=== PATIENT | male | born 1950 | race Caucasian/White ===

== ENCOUNTER 2020-09-07 12:25 | Outpatient (CLI) | payer MEDICARE, SELFPAY ==
[2020-09-07 20:32] LABS: SARS-CoV-2 RNA PCR Negative
== END 2020-09-07 12:26 | disposition home or self-care (01) ==
LOC: ANHCOVIDDT 12:28
PROVIDERS: PCP Internal Medicine; Visit Provider Internal Medicine
DX: J02.9 Acute pharyngitis, unspecified (principal); Z20.822 Contact with and (suspected) exposure to COVID-19
CPT/HCPCS: C9803; U0003; U0005

== ENCOUNTER 2020-09-08 11:18 | Emergency (ER) | payer MEDICARE, SELFPAY ==
--- NOTE | 2020-09-08 11:28 | ED.URI ---
HPI - URI/Sore Throat General Chief Complaint: Upper Respiratory Infection Stated Complaint: Sore throat Source: patient and RN notes reviewed Mode of arrival: ambulatory History of Present Illness HPI Narrative: This is a 70-year-old white male who presented to urgent care today with a complaint of sore throat and pain while swallowing that developed approximately 4 days ago. Patient does have a history of taking prednisone. He did note that yesterday he took a old prescription of amoxicillin. Patient also notes that he has a burning sensation in his throat. Patient will be treated for pharyngitis , ORAL candidiasis. The patient denies SOB, CP, palpitation, extremity numbness, lightheadedness, dizziness, constipation, diarrhea, chills, or fever. Related Data Home Medications Medication Instructions Recorded Confirmed aspirin 81 mg tablet,delayed 81 mg PO DAILY 08/07/19 09/08/20 release carvedilol 6.25 mg tablet 6.25 mg PO Q12H 08/07/19 09/08/20 ezetimibe 10 mg-simvastatin 40 mg 1 tablet PO DAILY 08/07/19 09/08/20 tablet ferrous sulfate 325 mg (65 mg 325 mg PO DAILY 08/07/19 09/08/20 iron) tablet losartan 25 mg tablet 25 mg PO DAILY 08/07/19 09/08/20 methotrexate sodium 2.5 mg tablet 2.5 mg PO WEEKLY 08/07/19 09/08/20 multivitamin 1 tablet PO DAILY 08/07/19 09/08/20 pantoprazole 20 mg tablet,delayed 20 mg PO QAM 08/07/19 09/08/20 release ticagrelor 90 mg tablet 90 mg PO Q12H 08/07/19 09/08/20 tofacitinib 11 mg tablet,extended 11 mg PO DAILY 08/07/19 09/08/20 release 24 hr folic acid 1 mg tablet 1 mg PO DAILY 08/10/19 09/08/20 prednisone 1 mg PO DAILY 09/08/20 09/08/20 rosuvastatin 40 mg PO DAILY 09/08/20 09/08/20 Allergies Allergy/AdvReac Type Severity Reaction Status Date / Time lisinopril Allergy Intermediate Swelling Verified 09/08/20 11:25 of Lip/Tongue/Throat gramicidin D Allergy Mild Rash Verified 09/08/20 11:24 hydrocortisone Allergy Mild Rash Verified 09/08/20 11:25 [From [facility] ([id number])] polymyxin B Allergy Mild Rash Verified 09/08/20 11:24 neomycin AdvReac Mild Rash Verified 09/08/20 11:24 Review of Systems Review of Systems: All systems reviewed & are unremarkable except as noted in HPI and below (10 point system review) [facility] Surgical History Surgical History H/O oral surgery Family History Family History Sibling Patient's brother is in good health Carcinoma of colon Father Family history of malignant neoplasm Patient's father is , Onset Age: 86 Mother Family history of dementia Social History Social History Smoking packs per day: 1 Smoking cigarettes per day: 20.0 Years smoked: 40 Smoking pack-years: 40.00 Smoking status: Former smoker Second hand tobacco smoke exposure: No Smoking end date: 08/05/11 Alcohol intake: current Exam Narrative: Exam Narrative: GENERAL: This is a well-nourished, well-developed patient, in no apparent distress. HEAD: normocephalic, atraumatic. EYES: PERRL. Sclera clear/white. Vision is grossly intact. EARS: External ears normal, auditory canals clear and without drainage, TMs normal without perforation. Hearing grossly intact. NOSE: External nose normal with no obvious nasal discharge, nares without redness, no rhinorrhea. THROAT: WHITE THICK COTTAGE CHEESE PATCHES IN posterior and roof of the, erythema and edematous NECK: Neck supple, non-tender without lymphadenopathy, masses or thyromegaly. CARDIOVASCULAR: Regular rate and rhythm without murmurs, gallops, or rubs. RESPIRATORY: Clear to auscultation. Breath sounds equal bilaterally. No wheezes, rales, or rhonchi. GASTROINTESTINAL: Abdomen soft, non-tender, nondistended. Bowel sounds are active. No hepato-splenomegaly, or palpable masses. No guarding. SKIN:
[2020-09-08 11:41] VITALS: BP 121/80; PULSE 67; RESP 16; TEMP 37.2; O2SAT 100
== END 2020-09-08 12:10 | disposition home or self-care (01) ==
PROVIDERS: Emergency Provider Nurse Practitioner; PCP Internal Medicine
DX: J02.8 Acute pharyngitis due to other specified organisms (principal); Z87.891 Personal history of nicotine dependence
CPT/HCPCS: 87081; 87880; 99213; G0463

== ENCOUNTER → 2021-08-08 10:39 | Outpatient (CLI) | payer MEDICARE, SELFPAY ==
[2021-08-08 20:10] LABS: SARS-CoV-2 RNA PCR Negative
== END ==
PROVIDERS: PCP Internal Medicine; Visit Provider Internal Medicine
DX: R05.9 Cough, unspecified (principal); Z20.822 Contact with and (suspected) exposure to COVID-19
CPT/HCPCS: C9803; U0003; U0005

== ENCOUNTER → 2021-08-28 09:39 | Outpatient (CLI) | payer MEDICARE, SELFPAY ==
[2021-08-28 19:02] LABS: SARS-CoV-2 RNA PCR Positive
== END ==
PROVIDERS: PCP Internal Medicine; Visit Provider Internal Medicine
DX: U07.1 COVID-19 (principal); R05.9 Cough, unspecified
CPT/HCPCS: C9803; U0003; U0005

== ENCOUNTER 2021-08-30 08:54 | Outpatient (RCR) | payer MEDICARE, SELFPAY ==
[2021-08-30 12:40] VITALS: BP 110/87; PULSE 66; RESP 18; TEMP 36.6; O2SAT 92
[2021-08-30] MEDS: FAMOTIDINE 20 MG TABLET PO (12:45)
[2021-08-30] MEDS: ACETAMINOPHEN 325 MG TABLET 650 MG PO (12:45)
[2021-08-30] MEDS: diphenhydrAMINE HCl CAP 25 MG CAPSULE PO (12:45)
== END 2021-08-30 17:00 ==
LOC: AMCINF 08:54
PROVIDERS: PCP Internal Medicine; Referring Provider Internal Medicine; Visit Provider Internal Medicine Hematology & Oncology
DX: U07.1 COVID-19 (principal); I25.10 Atherosclerotic heart disease of native coronary artery without angina pectoris
CPT/HCPCS: A9270; M0247; Q0247

== ENCOUNTER 2021-09-23 13:46 | Emergency (ER) | payer MEDICARE, SELFPAY ==
--- NOTE | 2021-09-23 13:55 | ED.URI ---
HPI - URI/Sore Throat General Chief Complaint: Upper Respiratory Infection Stated Complaint: Cough Time Seen by Provider: 09/23/21 13:55 Source: patient and RN notes reviewed History of Present Illness HPI Narrative: Patient is a 71-year-old male who presents the urgent care with complaints of post COVID cough. Patient states he had COVID 5 weeks ago and has had ear congestion since then. Patient states that approximately 1 week ago his cough worsened. Denies any shortness of breath or chest pain. Denies of production of the cough. States that he has not taken anything [id number] for his symptoms. Denies of fever, chills, nausea or vomiting. No other acute complaints. No acute distress noted. Patient read the plan of care. Some parts of this dictation were generated by voice recognition software and may contain typographical and/or grammatical inaccuracies. Related Data Home Medications Medication Instructions Recorded Confirmed aspirin 81 mg tablet,delayed 81 mg PO DAILY 08/07/19 09/23/21 release carvedilol 6.25 mg tablet 6.25 mg PO Q12H 08/07/19 09/23/21 ferrous sulfate 325 mg (65 mg 325 mg PO DAILY 08/07/19 09/23/21 iron) tablet multivitamin 1 tablet PO DAILY 08/07/19 09/23/21 pantoprazole 20 mg tablet,delayed 20 mg PO QAM 08/07/19 09/23/21 release tofacitinib 11 mg tablet,extended 11 mg PO DAILY 08/07/19 09/23/21 release 24 hr folic acid 1 mg tablet 1 mg PO DAILY 08/10/19 09/23/21 calcium carbonate 500 mg-vitamin 1 tablet PO DAILY 10/26/20 09/23/21 D3 10 mcg (400 unit) tablet fexofenadine 180 mg tablet 180 mg PO DAILY 10/26/20 09/23/21 ibuprofen 200 mg-diphenhydramine 1 cap PO QHS PRN 10/26/20 09/23/21 HCl 25 mg capsule irbesartan 75 mg tablet 75 mg PO DAILY 10/26/20 09/23/21 rosuvastatin 40 mg tablet 40 mg PO DAILY 10/26/20 09/23/21 sildenafil 100 mg tablet 100 mg PO DAILY PRN 10/26/20 09/23/21 methotrexate (PF) 25 mg/mL 25 mg SUBCUT DAILY 02/01/21 09/23/21 subcutaneous syringe Allergies Allergy/AdvReac Type Severity Reaction Status Date / Time lisinopril Allergy Intermediate Swelling Verified 09/23/21 13:51 of Lip/Tongue/Throat gramicidin D Allergy Mild Rash Verified 09/23/21 13:51 hydrocortisone Allergy Mild Rash Verified 09/23/21 13:51 [From [facility] ([id number])] polymyxin B Allergy Mild Rash Verified 09/23/21 13:51 neomycin AdvReac Mild Rash Verified 09/23/21 13:51 Review of Systems Review of Systems: CONSTITUTIONAL: Denies fever, chills, or sweats. EYES: Denies visual changes, redness, or discharge. ENT: Denies rhinorrhea, congestion, sore throat. Reports of bilateral earache CARDIOVASCULAR: Denies chest pain, palpitations, or edema. RESPIRATORY: Reports of chronic nonproductive cough without dyspnea GASTROINTESTINAL: Denies abdominal pain, nausea, vomiting, or diarrhea. GENITOURINARY: Denies dysuria or hematuria. SKIN: Denies rash or itching. MUSCULOSKELETAL: Denies back pain, joint pain, or myalgia. NEUROLOGIC: Denies headache, numbness, or weakness. All other systems reviewed are negative, except as documented in HPI. [facility] Surgical History Surgical History H/O oral surgery Family History Family History Sibling Patient's brother is in good health Carcinoma of colon Father Family history of malignant neoplasm Patient's father is , Onset Age: 86 Mother Family history of dementia Social History Social History Smoking packs per day: 1 Smoking cigarettes per day: 20.0 Years smoked: 40 Smoking pack-years: 40.00 Smoking status: Former smoker Second hand tobacco smoke exposure: No Smoking end date: 08/05/11 Alcohol intake: current Comments At the time of my signature, I reviewed and agree with the nursing past medical, surgical, soci
[2021-09-23 14:01] VITALS: BP 107/69; PULSE 64; RESP 18; TEMP 36.5; O2SAT 96
== END 2021-09-23 14:10 | disposition home or self-care (01) ==
PROVIDERS: Emergency Provider Nurse Practitioner Family; PCP Internal Medicine
DX: R05.9 Cough, unspecified (principal); U09.9 Post COVID-19 condition, unspecified; Z87.891 Personal history of nicotine dependence; Z79.82 Long term (current) use of aspirin
CPT/HCPCS: 99213; G0463

== ENCOUNTER 2022-03-22 11:58 | Outpatient (CLI) | payer MEDICARE, SELFPAY ==
--- NOTE | ~2022-03-22 | XR_ITS ---
EXAMINATION: XR lumbar spine min 4V DATE: 03/22/2022 12:25 INDICATION: Low back pain TECHNIQUE: Anteroposterior and lateral in neutral, flexion and extension views of the lumbar spine we re obtained. COMPARISON: 10/20/2018, 09/09/2018 FINDINGS: There are 6 mm of unchanged anterolisthesis of L2 on L3 and 5 mm of unchanged retrolisthesi s of L3 on L4 and L4 on L5. Alignment at L3-4 is reduced to normal flexion. Alignment of the lumbar s pine is anatomic with extension. There is moderate loss of intervertebral disc space height at L4-5 a nd severe loss of intervertebral disc space height throughout the remainder of the lumbar spine. No f racture is identified. Calcified atherosclerosis is noted. IMPRESSION: 1. Severe lumbar spondylosis with laxity in flexion and extension. No fracture. Reviewed, dictated and finalized at location A.
== END 2022-03-22 11:59 | disposition home or self-care (01) ==
PROVIDERS: PCP Internal Medicine; Visit Provider Neurological Surgery
DX: M47.896 Other spondylosis, lumbar region (principal)
CPT/HCPCS: 72110

== ENCOUNTER 2022-07-06 15:15 | Outpatient (CLI) | payer MEDICARE, SELFPAY ==
[2022-07-06 16:08] LABS: Influenza A QL RT-PCR Positive (Negative); Influenza B QL RT-PCR Negative (Negative); SARS-CoV-2 RNA PCR Negative
== END 2022-07-06 15:16 | disposition home or self-care (01) ==
PROVIDERS: PCP Internal Medicine; Visit Provider Internal Medicine
DX: B34.9 Viral infection, unspecified (principal); Z20.822 Contact with and (suspected) exposure to COVID-19
CPT/HCPCS: 87636

== ENCOUNTER 2022-10-24 00:19 | Day surgery (SDC) | payer MEDICARE, SELFPAY ==
[2022-10-10 14:25] VITALS: BMI 24.5
[2022-10-24 08:05] VITALS: BP 129/81; PULSE 68; RESP 16; TEMP 36.1; O2SAT 93; BMI 24.9
[2022-10-24] MEDS: LACTATED RINGERS 1,000 ML 150 ML IV CONT (08:31)
--- NOTE | 2022-10-24 09:08 | WPDANESEPPF ---
Anes - Initial Pre Proc Eval Procedure: Operation Date: 10/24/22 09:30 Proposed Procedures p Screening Colonoscopy - Bran Martínez MD Date/Time: 10/24/22 09:08 Surgeon: Bran Martínez MD Pre Op Diagnosis: neoplasm screening Patient Data Age: 72 Gender: M Height: 1.75 m Weight: 76.5 kg Last Vital Signs Temp 97.0 F L 10/24/22 08:05 Pulse 68 10/24/22 08:05 Resp 16 10/24/22 08:05 BP 129/81 10/24/22 08:05 Pulse Ox 93 10/24/22 08:05 O2 Del Method Room Air 10/24/22 08:05 Allergies Allergy/AdvReac Type Severity Reaction Status Date / Time lisinopril Allergy Intermediate Swelling Verified 10/24/22 08:10 of Lip/Tongue/Throat gramicidin D Allergy Mild Rash Verified 10/24/22 08:10 hydrocortisone Allergy Mild Rash Verified 10/24/22 08:10 [From [facility] ([id number])] polymyxin B Allergy Mild Rash Verified 10/24/22 08:10 neomycin AdvReac Mild Rash Verified 10/24/22 08:10 Home Medications Medication Instructions Recorded Confirmed Type aspirin 81 mg tablet,delayed 81 mg PO DAILY 08/07/19 10/24/22 History release (Adult Low Dose Aspirin) carvedilol 6.25 mg tablet 3.125 mg PO Q12H 08/07/19 10/24/22 History multivitamin (Multiple Vitamins 1 tablet PO DAILY 08/07/19 10/24/22 History tablet) pantoprazole 20 mg tablet,delayed 20 mg PO QAM 08/07/19 10/24/22 History release tofacitinib 11 mg tablet,extended 11 mg PO DAILY 08/07/19 10/24/22 History release 24 hr (Xeljanz XR) calcium carbonate 500 mg-vitamin 1 tablet PO DAILY 10/26/20 10/24/22 History D3 10 mcg (400 unit) tablet irbesartan 75 mg tablet 75 mg PO DAILY 10/26/20 10/24/22 History rosuvastatin 40 mg tablet 40 mg PO DAILY 10/26/20 10/24/22 History sildenafil 100 mg tablet 100 mg PO DAILY PRN pain 10/26/20 10/24/22 History gabapentin 300 mg capsule 300 mg PO QPM #90 caps 07/02/22 10/24/22 Rx citalopram 20 mg tablet 20 mg PO DAILY #90 tabs 09/03/22 10/24/22 Rx Benadryl 25 mg PO DAILY 10/10/22 10/24/22 History clopidogrel 75 mg tablet 75 mg PO DAILY 10/10/22 10/24/22 History leflunomide 20 mg tablet 20 mg PO DAILY 10/10/22 10/24/22 History Patient hx anesthesia problems: none Family hx anesthesia problems: none Results Review: All pre-operative results and documents have been reviewed as part of the pre-operative evaluation. [facility] Surgical History Surgical History H/O oral surgery Family History Family History Sibling Patient's brother is in good health Carcinoma of colon Father Family history of malignant neoplasm Patient's father is , Onset Age: 86 Mother Family history of dementia Social History Social History (Updated 08/07/22 @ 16:27 by Rich Leon MA) Smoking packs per day: 1.5 Smoking cigarettes per day: 30.0 Years smoked: 40 Smoking pack-years: 60.00 Smoking status: Former smoker Tobacco type: cigarettes Second hand tobacco smoke exposure: No Smoking end date: 08/05/11 Alcohol intake: never Substance use: never Substance use type: does not use Currently Unemployed: Decline to Answer Education: High School Diploma/GED Difficulty w/ Childcare or Family Care: Decline to Answer Living arrangements: with family Spiritual care concerns: No Anes - Eval Final PreProcedure Day of Procedure 10/24/22 09:08 Patient weight: normal Heart: regular rate and rhythm Lungs: clear to auscultation Airway: Mallampati scale class II Neurological: alert and oriented Last oral intake: >/= 8 hours ASA classification: III Emergent: no Anesthetic plan: proceed Anesthesia type and monitoring: general GIVS and standard monitoring Results Review: All pre-operative results and documents have been reviewed as part of the pre-operative evaluation. Informed Consent: The patient's anesthetic plan a
--- NOTE | 2022-10-24 09:23 | PM.HPGS ---
History of Present Illness History of Present Illness Consent: Risks, benefits, and alternatives have been discussed and questions answered. Patient agrees to proceed with procedure. Chief complaint: neoplasm screening Narrative: Viktor Toussaint is a 72 year old male with last colonoscopy 5 years ago, sister had colon cancer Review of Systems Constitutional: Constitutional: Denies headache(s) and Denies weakness Eyes: Eyes: Denies blurry vision ENT: Reports Normal hearing present, Denies headache(s) and Denies neck pain Cardiovascular: Cardiovascular: Denies chest pain and Denies dyspnea Respiratory: Respiratory: Denies dyspnea Gastrointestinal: Gastrointestinal: Reports no additional gastrointestinal complaints Genitourinary: Genitourinary: Denies dysuria Musculoskeletal: Musculoskeletal: Denies neck pain Integumentary/Breasts: Skin/Breast: Denies dry skin Neurologic: Reports Normal hearing present, Denies headache(s) and Denies weakness Psychiatric: Psychiatric: Denies anxiety Endocrine: Endocrine: Denies change in body appearance Hematologic/Lymphatic: Hematologic/Lymphatic: Denies easy bleeding Allergic/Immunologic: Allergic/Immunologic: Denies urticaria PMFSH Past Medical History Medical History (Updated 10/24/22 @ 09:24 by Bran Martínez MD) Family history of colon cancer Surgical History Surgical History H/O oral surgery Family History Family History Sibling Patient's brother is in good health Carcinoma of colon Father Family history of malignant neoplasm Patient's father is , Onset Age: 86 Mother Family history of dementia Social History Social History (Updated 08/07/22 @ 16:27 by Rich Leon MA) Smoking packs per day: 1.5 Smoking cigarettes per day: 30.0 Years smoked: 40 Smoking pack-years: 60.00 Smoking status: Former smoker Tobacco type: cigarettes Second hand tobacco smoke exposure: No Smoking end date: 08/05/11 Alcohol intake: never Substance use: never Substance use type: does not use Currently Unemployed: Decline to Answer Education: High School Diploma/GED Difficulty w/ Childcare or Family Care: Decline to Answer Living arrangements: with family Spiritual care concerns: No Meds Home Medications and Allergies Home Medications Medication Instructions Recorded Confirmed Type aspirin 81 mg tablet,delayed 81 mg PO DAILY 08/07/19 10/24/22 History release (Adult Low Dose Aspirin) carvedilol 6.25 mg tablet 3.125 mg PO Q12H 08/07/19 10/24/22 History multivitamin (Multiple Vitamins 1 tablet PO DAILY 08/07/19 10/24/22 History tablet) pantoprazole 20 mg tablet,delayed 20 mg PO QAM 08/07/19 10/24/22 History release tofacitinib 11 mg tablet,extended 11 mg PO DAILY 08/07/19 10/24/22 History release 24 hr (Xeljanz XR) calcium carbonate 500 mg-vitamin 1 tablet PO DAILY 10/26/20 10/24/22 History D3 10 mcg (400 unit) tablet irbesartan 75 mg tablet 75 mg PO DAILY 10/26/20 10/24/22 History rosuvastatin 40 mg tablet 40 mg PO DAILY 10/26/20 10/24/22 History sildenafil 100 mg tablet 100 mg PO DAILY PRN pain 10/26/20 10/24/22 History gabapentin 300 mg capsule 300 mg PO QPM #90 caps 07/02/22 10/24/22 Rx citalopram 20 mg tablet 20 mg PO DAILY #90 tabs 09/03/22 10/24/22 Rx Benadryl 25 mg PO DAILY 10/10/22 10/24/22 History clopidogrel 75 mg tablet 75 mg PO DAILY 10/10/22 10/24/22 History leflunomide 20 mg tablet 20 mg PO DAILY 10/10/22 10/24/22 History Allergies Allergy/AdvReac Type Severity Reaction Status Date / Time lisinopril Allergy Intermediate Swelling Verified 10/24/22 08:10 of Lip/Tongue/Throat gramicidin D Allergy Mild Rash Verified 10/24/22 08:10 hydrocortisone Allergy Mild Rash Verified 10/24/22 08:10 [From [facility] ([id number])] polymyxin B A
[2022-10-24 09:48] VITALS: BP 97/64; PULSE 61; RESP 17; O2SAT 97
[2022-10-24 09:58] VITALS: BP 99/61; PULSE 60; RESP 18; O2SAT 97
[2022-10-24 10:08] VITALS: BP 119/80; PULSE 60; RESP 22; O2SAT 99
== END 2022-10-24 10:15 | disposition home or self-care (01) ==
PROVIDERS: PCP Internal Medicine; Visit Provider Internal Medicine Gastroenterology
PROC: 0DJD8ZZ Inspection of Lower Intestinal Tract, Via Natural or Artificial Opening Endoscopic (ICD-10-PCS; CPT 45378; principal; 2022-10-24 09:30)
DX: Z12.11 Encounter for screening for malignant neoplasm of colon (principal); K64.8 Other hemorrhoids; Z80.0 Family history of malignant neoplasm of digestive organs; Z79.82 Long term (current) use of aspirin; Z79.02 Long term (current) use of antithrombotics/antiplatelets; Z87.891 Personal history of nicotine dependence
CPT/HCPCS: G0105; J2704; J7120

== ENCOUNTER 2022-12-05 08:11 | Outpatient (CLI) | payer MEDICARE, SELFPAY ==
--- NOTE | ~2022-12-05 | US_ITS ---
EXAMINATION: US art doppler w press LE DATE: 12/05/2022 09:26 INDICATION: Peripheral vascular disease. TECHNIQUE: Segmental pressures and plethysmographic and Doppler waveforms of the brachial and lower e xtremity arteries were obtained. COMPARISON: None. FINDINGS: Right and left brachial artery pressures of 108 mm Hg and 99 mm Hg, respectively, are concordant (nor mal difference <= 30 mmHg). The right high-thigh pressure index is 1.22 (normal > 1.2). The right ankle-brachial index (KYLIE) is 1 .26 (normal >= 0.9-1.0). The right great toe-brachial index (TBI) is 0.69 (normal >= 0.65). Arterial Doppler waveforms are biphasic from common femoral artery to the ankle. The left high-thigh pressure index is 1.23. The left KYLIE is 1.31. The left TBI is 0.49. Arterial Dopp ler waveforms are triphasic in common femoral artery, biphasic from superficial femoral artery to pos terior tibial artery, and triphasic in dorsalis pedis. IMPRESSION: 1. Mildly decreased left TBI and normal left KYLIE, consistent with left-sided arterial occlusive disea se. Note that KYLIE may be overestimated if arteries are calcified. 2. No significant right-sided arterial occlusive disease. Reviewed, dictated and finalized at location A. IMPRESSION: 1. Mildly decreased left TBI and normal left KYLIE, consistent with left-sided ar terial occlusive disease. Note that KYLIE may be overestimated if arteries are ca lcified. 2. No significant right-sided arterial occlusive disease.
== END 2022-12-05 08:12 | disposition home or self-care (01) ==
PROVIDERS: PCP Internal Medicine; Visit Provider Podiatrist Foot & Ankle Surgery
DX: I73.9 Peripheral vascular disease, unspecified (principal); Z01.818 Encounter for other preprocedural examination
CPT/HCPCS: 93923

== ENCOUNTER 2023-03-15 14:23 | Outpatient (CLI) | payer MEDICARE, SELFPAY ==
--- NOTE | ~2023-03-15 | MR_ITS ---
EXAMINATION: MR lumbar spine wo con DATE: 03/15/2023 15:23 INDICATION: Other chronic pain. Low back pain with intermittent bilateral sciatica. TECHNIQUE: Magnetic resonance imaging (MRI) of the lumbar spine was performed without intravenous con trast. Sequences included sagittal T2-weighted FSE, sagittal T2-weighted FS FSE, sagittal T1-weighted FSE, and axial T2-weighted FSE. COMPARISON: Lumbar spine MRI 10/20/2018 FINDINGS: There is 14 degrees dextroscoliosis of lumbar spine. There is 19 degrees levoscoliosis of t horacolumbar spine. There is 4 mm anterolisthesis of L1 on L2, 3 mm anterolisthesis of L2 on L3, 4 mm retrolisthesis of L3 on L4, and 6 mm retrolisthesis of L4 on L5. Vertebral body heights are normal. There is moderately decreased disc height at all T12-L1, severely decreased disc height at L1-L2, mod erately decreased disc height at L2-L3, severely decreased disc height at L3-L4, moderately decreased disc height at L4-L5, and severely decreased disc height at L5-S1. The distal spinal cord signal int ensity is normal. The conus medullaris is at L1. The following disc levels are specifically discussed : L1-L2: The disc is bulging and has an annular fissure. There is severe bilateral facet joint osteoart hritis. There is mild bilateral neural foraminal stenosis. There is mild central canal stenosis. L2-L3: The disc is bulging and has an annular fissure. There is severe bilateral facet joint osteoart hritis. There is mild bilateral neural foraminal stenosis. There is an epidural cyst anteriorly. Ther e is severe central canal stenosis. L3-L4: The disc is bulging and has an annular fissure. There is severe bilateral facet joint osteoart hritis. There is moderate bilateral neural foraminal stenosis. There is an epidural cyst posteriorly. There is severe central canal stenosis. L4-L5: The disc is bulging and has an annular fissure. There is severe right and moderate left facet joint osteoarthritis. There is moderate bilateral neural foraminal stenosis. There is mild central ca nal stenosis. There is severe stenosis of right lateral recess and moderate stenosis of left lateral recess. L5-S1: The disc is bulging and has an annular fissure. There is severe bilateral facet joint osteoart hritis. There is mild bilateral neural foraminal stenosis. There is mild central canal stenosis. IMPRESSION: 1. Severe lumbar spondylosis, worsened from 10/20/2018. 2. Scoliosis. Reviewed, dictated and finalized at location A.
== END 2023-03-15 14:24 | disposition home or self-care (01) ==
PROVIDERS: PCP Internal Medicine; Visit Provider Internal Medicine
DX: M47.896 Other spondylosis, lumbar region (principal); M41.9 Scoliosis, unspecified
CPT/HCPCS: 72148

== ENCOUNTER 2023-04-12 13:41 | Emergency (ER) | payer MEDICARE, SELFPAY ==
[2023-04-12 13:53] VITALS: BP 127/76; PULSE 59; RESP 16; TEMP 36.3; O2SAT 98
--- NOTE | 2023-04-12 13:54 | ED.BACK ---
HPI - Back Pain/Injury General Chief Complaint: Back Pain/Injury Stated Complaint: difficulty sleeping,back issues Time Seen by Provider: 04/12/23 13:54 Source: patient Mode of arrival: ambulatory Limitations: no limitations History of Present Illness HPI Narrative: 72 yo M presents with c/o chronic low back pain. reports hx of several surgeries. has been having increased pain to low back with radiation to L LE. pain causing him to have trouble sleeping. has appt with PCP in 1 wk. has tried ibuprofen and tyelnol with no relief. use to take oxycodone and states hard to get off, does not want any strong pain medications. also does no want prednisone, states weaked bones. Ambulatory with steady gait. No loss of bowel or bladder. denies numbness, tingling or weakness to LEs. all systems reviewed and negative except as noted above. Related Data Home Medications Medication Instructions Recorded Confirmed aspirin 81 mg tablet,delayed 81 mg PO DAILY 08/07/19 04/12/23 release (Adult Low Dose Aspirin) carvedilol 6.25 mg tablet 3.125 mg PO Q12H 08/07/19 04/12/23 multivitamin (Multiple Vitamins 1 tablet PO DAILY 08/07/19 04/12/23 tablet) pantoprazole 20 mg tablet,delayed 20 mg PO QAM 08/07/19 04/12/23 release tofacitinib 11 mg tablet,extended 11 mg PO DAILY 08/07/19 04/12/23 release 24 hr (Xeljanz XR) calcium carbonate 500 mg-vitamin 1 tablet PO DAILY 10/26/20 04/12/23 D3 10 mcg (400 unit) tablet irbesartan 75 mg tablet 75 mg PO DAILY 10/26/20 04/12/23 rosuvastatin 40 mg tablet 40 mg PO DAILY 10/26/20 04/12/23 sildenafil 100 mg tablet 100 mg PO DAILY PRN pain 10/26/20 04/12/23 Benadryl 25 mg PO DAILY 10/10/22 04/12/23 clopidogrel 75 mg tablet 75 mg PO DAILY 10/10/22 04/12/23 leflunomide 20 mg tablet 20 mg PO DAILY 10/10/22 04/12/23 cetirizine 10 mg tablet (Zyrtec) 10 mg PO DAILY 04/12/23 04/12/23 cyclosporine 0.05 % eye drops in a See Rx Instructions .Route .COMPLEX 04/12/23 04/12/23 dropperette (Restasis) nitroglycerin 0.4 mg sublingual See Rx Instructions .Route .COMPLEX 04/12/23 04/12/23 tablet vit C 250 mg-vit E 200 unit-zinc See Rx Instructions .Route .COMPLEX 04/12/23 04/12/23 ox 12.5 [id number] capsule (ICaps AREDS2) Allergies Allergy/AdvReac Type Severity Reaction Status Date / Time lisinopril Allergy Intermediate Swelling Verified 04/12/23 13:52 of Lip/Tongue/Throat gramicidin D Allergy Mild Rash Verified 04/12/23 13:52 hydrocortisone Allergy Mild Rash Verified 04/12/23 13:52 [From [facility] ([id number])] polymyxin B Allergy Mild Rash Verified 04/12/23 13:52 neomycin AdvReac Mild Rash Verified 04/12/23 13:52 Review of Systems Review of Systems: CONSTITUTIONAL: Denies fever, chills, or sweats. EYES: Denies visual changes, redness, or discharge. ENT: Denies rhinorrhea, congestion, sore throat, or otalgia. CARDIOVASCULAR: Denies chest pain, palpitations, or edema. RESPIRATORY: Denies cough or dyspnea. GASTROINTESTINAL: Denies abdominal pain, nausea, vomiting, or diarrhea. GENITOURINARY: Denies dysuria or hematuria. SKIN: Denies rash or itching. MUSCULOSKELETAL: Reports back pain with radiation to left lower extremity. Denies joint pain, or myalgia. NEUROLOGIC: Denies headache, numbness, or weakness. PSYCHIATRIC: Denies anxiety or depression. All other systems reviewed are negative, except as documented in HPI. [facility] Past Medical History Medical History Family history of colon cancer Surgical History Surgical History H/O oral surgery Family History Family History Sibling Patient's brother is in good health Carcinoma of colon Father Family history of malignant neoplasm Patient's father is , Onset Age: 86 Mother Family history of dementia Social History Socia
[2023-04-12 13:57] VITALS: BP 127/76; PULSE 59; RESP 16; TEMP 36.3; O2SAT 98
[2023-04-12] MEDS: KETOROLAC 30 MG/ML VIAL (*BKC) IM (14:30)
== END 2023-04-12 14:51 | disposition home or self-care (01) ==
PROVIDERS: Emergency Provider Nurse Practitioner Family; PCP Internal Medicine
DX: M54.42 Lumbago with sciatica, left side (principal); Z87.891 Personal history of nicotine dependence; Z79.82 Long term (current) use of aspirin
CPT/HCPCS: 96372; 99213; G0463; J1885

== ENCOUNTER 2024-06-28 12:57 | Emergency (ER) | payer MEDICARE, SELFPAY ==
[2024-06-28 13:10] VITALS: BP 111/67; PULSE 64; RESP 20; TEMP 36.4; O2SAT 100
--- NOTE | 2024-06-28 13:27 | ED.URI ---
HPI - URI/Sore Throat General Chief Complaint: Upper Respiratory Infection Stated Complaint: Sinus Time Seen by Provider: 06/28/24 13:21 Source: patient and RN notes reviewed Mode of arrival: ambulatory Limitations: no limitations History of Present Illness HPI Narrative: Patient presents today with 11 day history of nasal congestion and productive cough. Denies fever, shortness of breath, chest pain. He has tried Mucinex as well as cold and flu medicine without relief. History of rheumatoid arthritis for which he takes to immunosuppressive medications. He is also on a low-dose prednisone that he takes daily. Related Data Home Medications Medication Instructions Recorded Confirmed aspirin 81 mg tablet,delayed 81 mg PO DAILY 08/07/19 06/28/24 release (Adult Low Dose Aspirin) carvedilol 6.25 mg tablet 3.125 mg PO Q12H 08/07/19 06/28/24 multivitamin (Multiple Vitamins 1 tablet PO DAILY 08/07/19 06/28/24 tablet) pantoprazole 20 mg tablet,delayed 20 mg PO QAM 08/07/19 06/28/24 release tofacitinib 11 mg tablet,extended 11 mg PO DAILY 08/07/19 06/28/24 release 24 hr (Xeljanz XR) calcium 500 mg (as 1 tablet PO DAILY 10/26/20 06/28/24 carbonate)-vitamin D3 10 mcg (400 unit) tablet irbesartan 75 mg tablet 75 mg PO DAILY 10/26/20 01/07/24 rosuvastatin 40 mg tablet 40 mg PO DAILY 10/26/20 06/28/24 sildenafil 100 mg tablet 100 mg PO DAILY PRN pain 10/26/20 06/28/24 Benadryl 25 mg PO DAILY 10/10/22 06/28/24 clopidogrel 75 mg tablet 75 mg PO DAILY 10/10/22 06/28/24 leflunomide 20 mg tablet 20 mg PO DAILY 10/10/22 06/28/24 cetirizine 10 mg tablet (Zyrtec) 10 mg PO DAILY 04/12/23 06/28/24 cyclosporine 0.05 % eye drops in a See Rx Instructions .Route .COMPLEX 04/12/23 06/28/24 dropperette (Restasis) nitroglycerin 0.4 mg sublingual See Rx Instructions .Route .COMPLEX 04/12/23 06/28/24 tablet vit C 250 mg-vit E 200 unit-zinc See Rx Instructions .Route .COMPLEX 04/12/23 06/28/24 ox 12.5 [id number]-oclqaa-zeax capsule (ICaps AREDS2) Allergies Allergy/AdvReac Type Severity Reaction Status Date / Time lisinopril Allergy Intermediate Swelling Verified 06/28/24 12:59 of Lip/Tongue/Throat gramicidin D Allergy Mild Rash Verified 06/28/24 12:59 hydrocortisone Allergy Mild Rash Verified 06/28/24 12:59 [From [facility] ([id number])] polymyxin B Allergy Mild Rash Verified 06/28/24 12:59 neomycin AdvReac Mild Rash Verified 06/28/24 12:59 Review of Systems Review of Systems: CONSTITUTIONAL: Denies body aches, fever, chills, or sweats. EYES: Denies visual changes, redness, or discharge. ENT: Denies rhinorrhea, sore throat, or otalgia.+ congestion CARDIOVASCULAR: Denies chest pain, palpitations, or edema. RESPIRATORY: Denies dyspnea.+ cough GASTROINTESTINAL: Denies abdominal pain, nausea, vomiting, or diarrhea. GENITOURINARY: Denies dysuria or hematuria. SKIN: Denies rash, itching, or wounds. MUSCULOSKELETAL: Denies back pain, joint pain, or myalgia. NEUROLOGIC: Denies headache, numbness, tingling, or weakness. PSYCH: Denies depression or anxiety. [facility] Past Medical History Medical History (Updated 06/28/24 @ 13:31 by Judith Augustin, [place], [place]) Essential (primary) hypertension Family history of colon cancer Surgical History Surgical History H/O oral surgery Family History Family History Sibling Patient's brother is in good health Carcinoma of colon Father Family history of malignant neoplasm Patient's father is , Onset Age: 86 Mother Family history of dementia Social History Social History Smoking packs per day: 1.5 Smoking cigarettes per day: 30.0 Years smoked: 40 Smoking pack-years: 60.00 Smoking status: Former smoker Tobacco type: cigarettes Second hand tobacco smoke exposure: No Smoking end date: 08/05/11 Alcohol intake: never Substance use: never Substance use type: does not use Lack of Transportation: No Lack of Food: Never True Current Housing: I Have Housing Concerned About Future Housing: No Difficulty Paying Gas/Electric Bills: No Difficulty Paying for Meds: No Currently Unemployed: No Education: High School Diploma/GED Difficulty w/ Childcare or Family Care: No Living arrangements: with family Spiritual care concerns: No Comments At time of signature, I have reviewed and agree with nursing past medical, surgical, social and family history unless otherwise noted. Please see nursing chart for further information. There is no relevant family history pertinent to the presenting complaint Exam Narrative: GENERAL: Mildly ill-appearing, well-nourished, and in no acute distress. HEAD: Normocephalic, atraumatic. EYES: EOMI. No redness or drainage. Conjunctivae normal. ENT: Mucous membranes pink and moist. Nares congested. Bilateral nasal turbinates are erythematous and mildly edematous. No rhinorrhea. TMs normal bilaterally. Throat normal. Uvula midline. NECK: Normal AROM. Supple. No lymphadenopathy. CHEST: No respiratory distress. Clear to auscultation. HEART: Regular rate and rhythm. No murmur appreciated. SKIN: Warm, dry, no rash. Capillary refill normal. Normal skin turgor. NEURO: No focal deficits. Alert and oriented x3. Gait steady. PSYCH: Normal affect. No signs of depression or anxiety. Course Course Level of Care: Express Care Visit Vital Signs Vital signs: Vital Signs Temperature 97.5 F L 06/28/24 13:10 Pulse Rate 64 06/28/24 13:10 Respiratory Rate 20 06/28/24 13:10 Blood Pressure 111/67 06/28/24 13:10 Pulse Oximetry 100 06/28/24 13:10 Oxygen Delivery Room Air 06/28/24 13:10 Temperature 97.5 F L 06/28/24 13:10 Pulse Rate 64 06/28/24 13:10 Respiratory Rate 20 06/28/24 13:10 Blood Pressure 111/67 06/28/24 13:10 Pulse Oximetry 100 06/28/24 13:10 Oxygen Delivery Room Air 06/28/24 13:10 Reviewed MDM - URI/Sore Throat MDM Narrative Medical decision making narrative: Patient will be treated with Augmentin for bacterial sinusitis. Recommend continuing mjnn-fjr-xelrqhl medication if needed. Anticipatory guidance given. Differential Diagnosis Differential diagnosis: Likely upper respiratory infection, sinusitis, viral infection and bronchitis Critical Care Time Critical Care Time Critical Care Time: No Discharge Plan Discharge Clinical Impression: Sinusitis Qualifiers: Sinusitis location: unspecified location Chronicity: acute Recurrence: non-recurrent Qualified Code(s): J01.90 - Acute sinusitis, unspecified Patient Disposition: Home, Self-Care Condition: Stable Instructions: Antibiotic Form, Sinusitis (ED) Additional Instructions: Please take the Augmentin as prescribed until gone. You may continue imuv-wqn-phmeozq medication as needed for your symptoms as well. Follow-up with your PCP in 3 days if symptoms are not improving. Prescriptions: New amoxicillin-pot clavulanate 875-125 mg tablet 1 tablet PO Q12H 7 Days Qty: 14 0RF No Action cyclosporine [Restasis] 0.05 % dropperette See Rx Instructions .ROUTE .COMPLEX Rx Instructions: Rx cetirizine [Zyrtec] 10 mg Tablet 10 mg PO DAILY nitroglycerin 0.4 mg tablet, sublingual See Rx Instructions .ROUTE .COMPLEX Rx Instructions: Rx ICaps AREDS2 250 mg-200 unit -12.5 mg-1 mg Capsule See Rx Instructions .ROUTE .COMPLEX Rx Instructions: Rx calcium carbonate-vitamin D3 500 mg(1,250mg) -400 unit tablet 1 tablet PO DAILY irbesartan 75 mg tablet 75 mg PO DAILY rosuvastatin 40 mg tablet 40 mg PO DAILY sildenafil 100 mg tablet 100 mg PO DAILY PRN (Reason: pain) Rx Instructions: administer 30 minutes to 4 hours before activity cyclobenzaprine 10 mg tablet 10 mg PO TID PRN (Reason: muscle spasm) Qty: 30 0RF aspirin [Adult Low Dose Aspirin] 81 mg tablet,delayed release (DR/EC) 81 mg PO DAILY multivitamin [Multiple Vitamins] Tablet 1 tablet PO DAILY pantoprazole 20 mg tablet,delayed release (DR/EC) 20 mg PO QAM Xeljanz XR 11 mg tablet extended release 24 hr 11 mg PO DAILY carvedilol 6.25 mg tablet 3.125 mg PO Q12H gabapentin 300 mg capsule 300 mg PO QPM Qty: 90 3RF clopidogrel 75 mg tablet 75 mg PO DAILY leflunomide 20 mg tablet 20 mg PO DAILY Benadryl 25 mg PO DAILY cefuroxime axetil 250 mg tablet 250 mg PO Q12H Qty: 20 0RF prednisone 5 mg tablet 5 mg PO DIRECTED Qty: 21 0RF Rx Instructions: 6 po today, decreasing dose by one tablet daily until gone(6,5,4,3,2,1) trazodone 50 mg tablet 50 mg PO QHS Qty: 90 1RF dicyclomine 20 mg tablet 20 mg PO DAILY Qty: 90 1RF citalopram 20 mg tablet 20 mg PO DAILY Qty: 90 1RF fluticasone propionate [Flonase Allergy Relief] 50 mcg/actuation spray,suspension 2 spray intranasal DAILY Qty: 16 5RF Rx Instructions: administer into each nostril Follow-up/Referrals: Hong,Sebastian Dewitt DO [Primary Care Provider] - Time of Disposition: 13:32
== END 2024-06-28 13:35 | disposition home or self-care (01) ==
PROVIDERS: Emergency Provider Nurse Practitioner; PCP Internal Medicine
DX: J01.90 Acute sinusitis, unspecified (principal); I10 Essential (primary) hypertension; M06.9 Rheumatoid arthritis, unspecified; Z79.82 Long term (current) use of aspirin; Z87.891 Personal history of nicotine dependence
CPT/HCPCS: 99213; G0463

== ENCOUNTER 2024-09-15 08:42 | Emergency (ER) | payer MEDICARE, SELFPAY ==
--- NOTE | 2024-09-15 08:44 | ED_ITS ---
HPI - URI/Sore Throat General Chief Complaint: Upper Respiratory Infection Stated Complaint: Cough/Bodyaches Time Seen by Provider: 09/15/24 08:43 Source: patient Mode of arrival: ambulatory Limitations: no limitations History of Present Illness HPI Narrative: Viktor is a 74-year-old male patient presenting to the clinic today with complaints of cough, sob on exertion, weakness, and body aches x3 weeks. History of triple bypass with stents. Denies any chest pain. No history of COPD/asthma. Former smoker. Initial o2 saturation 86% on room air and b/p 84/50 manual in the left arm. He did report taking all of his medications this morning. MD elicited complaint: cough and other (shortness of breath,) Related Data Home Medications ?Medication ?Instructions ?Recorded ?Confirmed ?Last Taken ?Type aspirin 81 mg tablet,delayed 81 mg PO DAILY 08/07/19 06/28/24 Unknown History release (Adult Low Dose Aspirin) carvedilol 6.25 mg tablet 3.125 mg PO Q12H 08/07/19 06/28/24 Unknown History multivitamin (Multiple Vitamins 1 tablet PO DAILY 08/07/19 06/28/24 Unknown History tablet) pantoprazole 20 mg tablet,delayed 20 mg PO QAM 08/07/19 06/28/24 Unknown History release tofacitinib 11 mg tablet,extended 11 mg PO DAILY 08/07/19 06/28/24 Unknown History release 24 hr (Xeljanz XR) calcium 500 mg (as 1 tablet PO DAILY 10/26/20 06/28/24 Unknown History carbonate)-vitamin D3 10 mcg (400 unit) tablet irbesartan 75 mg tablet 75 mg PO DAILY 10/26/20 01/07/24 Unknown History rosuvastatin 40 mg tablet 40 mg PO DAILY 10/26/20 06/28/24 Unknown History sildenafil 100 mg tablet 100 mg PO DAILY PRN pain 10/26/20 06/28/24 Unknown History Benadryl 25 mg PO DAILY 10/10/22 06/28/24 Unknown History clopidogrel 75 mg tablet 75 mg PO DAILY 10/10/22 06/28/24 10/20/22 09:00 History leflunomide 20 mg tablet 20 mg PO DAILY 10/10/22 06/28/24 Unknown History cetirizine 10 mg tablet (Zyrtec) 10 mg PO DAILY 04/12/23 06/28/24 Unknown History cyclosporine 0.05 % eye drops in a See Rx Instructions .Route .COMPLEX 04/12/23 06/28/24 Unknown History dropperette (Restasis) nitroglycerin 0.4 mg sublingual See Rx Instructions .Route .COMPLEX 04/12/23 06/28/24 Unknown History tablet vit C 250 mg-vit E 200 unit-zinc See Rx Instructions .Route .COMPLEX 04/12/23 06/28/24 Unknown History ox 12.5 tk-amnmid-hmxcek-zeax capsule (ICaps AREDS2) Allergies Allergy/AdvReac Type Severity Reaction Status Date / Time lisinopril Allergy Intermediate Swelling Verified 09/15/24 08:47 of Lip/Tongue/Throat gramicidin D Allergy Mild Rash Verified 09/15/24 08:47 hydrocortisone (From Allergy Mild Rash Verified 09/15/24 08:47 [facility] ([id number])) polymyxin B Allergy Mild Rash Verified 09/15/24 08:47 neomycin AdvReac Mild Rash Verified 09/15/24 08:47 Review of Systems Review of Systems: Pertinent positives per HPI. Patient denies any fever, chills, rash, headache, visual changes, chest pain, palpitations, nausea, vomiting, diarrhea, constipation, abdominal pain, or any urinary issues. [facility] Past Medical History Medical History Essential (primary) hypertension Family history of colon cancer Surgical History Surgical History H/O oral surgery Family History Family History Sibling Patient's brother is in good health Carcinoma of colon Father Family history of malignant neoplasm Patient's father is , Onset Age: 86 Mother Family history of dementia Social History Social History Smoking packs per day: 1.5 Smoking cigarettes per day: 30.0 Years smoked: 40 Smoking pack-years: 60.00 Smoking status: Former smoker Tobacco type: cigarettes Second hand tobacco smoke exposure: No Smoking end date: 08/05/11 Alcohol intake: never Substance use: never Substance use type: does not use Lack of Transportation: No Lack of Food: Never True Current Housing: I Have Housing Concerned About Future Housing: No Difficulty Paying Gas/Electric Bills: No Difficulty Paying for Meds: No Currently Unemployed: No Education: High School Diploma/GED Difficulty w/ Childcare or Family Care: No Living arrangements: with family Spiritual care concerns: No Comments At the time of my signature, I reviewed and agree with the nursing past medical, surgical, social, and family history. There is no relevant family history pertinent to the patient complaint. Exam Narrative: General: Well-developed, well nourished, ill-appearing Head: Normocephalic, atraumatic Eyes: Pupils equally round and reactive to light bilaterally, EOM intact, sclera and conjunctive clear, no discharge, lids normal Ears: TMs intact and clear, ear canals clear, no drainage, grossly hearing normal. Nose: Nares patent, clear nasal discharge, no inflammation, no sinus tenderness. Mouth: Oral pharynx without lesions or masses, good dentition, MMM. Neck: Supple, trachea midline, no enlargement of anterior or posterior cervical nodes, no thyroid masses or goiter palpable. Cardio: Regular rate and rhythm, s1 and s2 normal, no murmur appreciated. Resp: Coarse and congested lung sounds, no rales, wheezing or rubs Course Course Emergency Course: Portions of this record may have been created with voice recognition software. Level of Care: Express Care Visit Vital Signs Vital signs: Vital Signs Temperature 36.6 C 09/15/24 08:59 Pulse Rate 62 09/15/24 08:59 Respiratory Rate 16 09/15/24 08:59 Blood Pressure 84/56 L 09/15/24 08:59 Pulse Oximetry 86 L 09/15/24 08:59 Oxygen Delivery Room Air 09/15/24 08:59 Temperature 36.6 C 09/15/24 08:59 Pulse Rate 62 09/15/24 08:59 Respiratory Rate 16 09/15/24 08:59 Blood Pressure 84/50 L 09/15/24 09:00 Pulse Oximetry 94 09/15/24 09:00 Oxygen Delivery Nasal Cannula 09/15/24 09:00 Oxygen Flow Rate 3 09/15/24 09:00 Vital signs reviewed Transfer Transfered to: [facility]: [facility] Transfer rationale: SOB on exertion, cough, weakness, hypoxemia, hypotension Accepting physician: Dr. Meier Transfer comments: [facility] EMS MDM - URI/Sore Throat MDM Narrative Medical decision making narrative: Plan: Patient presents to the clinic with complaints of weakness, shortness of breath on exertion, cough, and body aches x3 weeks. Vital signs show low O2 sats at 86% initially on room air and a manual blood pressure 84/50. Electronic b/p was initially 76/55 and 84/56 taken in the left arm. Patient did take his blood pressure medications this morning. O2 placed on patient at 2 liters via n/c bring o2 sats up to 94%. Patient does not appear to be in any respiratory distress while on the stretcher. Recommend transfer to the ED for further evaluation. Patient agrees to transfer to [facility]. Contacted Dr. Meier at [facility] and report was given for continuity of care and she accepts patient. EMS was called for transfer. Differential Diagnosis Differential diagnosis: Likely upper respiratory infection, otitis media, sinusitis, viral infection, bronchitis, influenza, pharyngitis and other Discharge Plan Discharge Clinical Impression: Short of breath on exertion, Acute hypotension, Hypoxemia, Weakness Patient Disposition: Acute Care Hospital Condition: Guarded Prognosis Patient Language: Swedish Prescriptions: No Action cyclosporine [Restasis] 0.05 % dropperette See Rx Instructions .ROUTE .COMPLEX Rx Instructions: Rx cetirizine [Zyrtec] 10 mg Tablet 10 mg PO DAILY nitroglycerin 0.4 mg tablet, sublingual See Rx Instructions .ROUTE .COMPLEX Rx Instructions: Rx ICaps AREDS2 250 mg-200 unit -12.5 mg-1 mg Capsule See Rx Instructions .ROUTE .COMPLEX Rx Instructions: Rx calcium carbonate-vitamin D3 500 mg(1,250mg) -400 unit tablet 1 tablet PO DAILY irbesartan 75 mg tablet 75 mg PO DAILY rosuvastatin 40 mg tablet 40 mg PO DAILY sildenafil 100 mg tablet 100 mg PO DAILY PRN (Reason: pain) Rx Instructions: administer 30 minutes to 4 hours before activity cyclobenzaprine 10 mg tablet 10 mg PO TID PRN (Reason: muscle spasm) Qty: 30 0RF aspirin [Adult Low Dose Aspirin] 81 mg tablet,delayed release (DR/EC) 81 mg PO DAILY multivitamin [Multiple Vitamins] Tablet 1 tablet PO DAILY pantoprazole 20 mg tablet,delayed release (DR/EC) 20 mg PO QAM Xeljanz XR 11 mg tablet extended release 24 hr 11 mg PO DAILY carvedilol 6.25 mg tablet 3.125 mg PO Q12H gabapentin 300 mg capsule 300 mg PO QPM Qty: 90 3RF clopidogrel 75 mg tablet 75 mg PO DAILY leflunomide 20 mg tablet 20 mg PO DAILY Benadryl 25 mg PO DAILY cefuroxime axetil 250 mg tablet 250 mg PO Q12H Qty: 20 0RF prednisone 5 mg tablet 5 mg PO DIRECTED Qty: 21 0RF Rx Instructions: 6 po today, decreasing dose by one tablet daily until gone(6,5,4,3,2,1) trazodone 50 mg tablet 50 mg PO QHS Qty: 90 1RF dicyclomine 20 mg tablet 20 mg PO DAILY Qty: 90 1RF citalopram 20 mg tablet 20 mg PO DAILY Qty: 90 1RF fluticasone propionate [Flonase Allergy Relief] 50 mcg/actuation spray,suspension 2 spray intranasal DAILY Qty: 16 5RF Rx Instructions: administer into each nostril Follow-up/Referrals: Mayur Urena DO [Primary Care Provider] - Time of Disposition: 09:15 Quality NIHSS Nursing Documentation ED NIHSS nursing documentation: reviewed/agree
[2024-09-15 08:59] VITALS: BP 84/56; PULSE 62; RESP 16; TEMP 36.6; O2SAT 86
[2024-09-15 09:00] VITALS: BP 84/50; O2SAT 94
== END 2024-09-15 09:10 | disposition short-term general hospital (02) ==
PROVIDERS: Emergency Provider Nurse Practitioner Family; PCP Internal Medicine
DX: R06.02 Shortness of breath (principal); I95.9 Hypotension, unspecified; R09.02 Hypoxemia; R53.1 Weakness; I10 Essential (primary) hypertension; I25.10 Atherosclerotic heart disease of native coronary artery without angina pectoris; Z95.5 Presence of coronary angioplasty implant and graft; Z79.82 Long term (current) use of aspirin; Z87.891 Personal history of nicotine dependence
CPT/HCPCS: 99215; G0463

== ENCOUNTER 2024-09-15 09:35 | Emergency (ER) | payer MEDICARE, SELFPAY ==
[2024-09-15] VITALS (16 sets, daily range): BP systolic 86–113; BP diastolic 57–73; PULSE 58–85; RESP 10–22; TEMP 37.1; O2SAT 93–100
--- NOTE | ~2024-09-15 | XR_ITS ---
EXAMINATION: XR chest 1V portable DATE: 09/15/2024 10:16 INDICATION: Cough and hypoxia TECHNIQUE: frontal view of the chest was obtained. COMPARISON: Chest radiograph dated 01/18/2013 FINDINGS: There is perihilar bronchial wall thickening. Mild interstitial and subtle airspace opacities at the left lower lung zone. No pleural effusion or pneumothorax. The cardiomediastinal silhouette is normal . Median sternotomy wires and mediastinal surgical clips are seen, likely from prior coronary artery bypass grafting. IMPRESSION: 1. Perihilar bronchial wall thickening and mild opacities in the left lower lung zone consistent with bronchitis/bronchitis and likely early pneumonia. Differential includes less likely asymmetric mild pulmonary edema. Reviewed, dictated and finalized at location A. MBLY INSTRUCTIONS WRITER IMPRESSION: 1. Perihilar bronchial wall thickening and mild opacities in the left lower jai g zone consistent with bronchitis/bronchitis and likely early pneumonia. Differ ential includes less likely asymmetric mild pulmonary edema.
--- NOTE | ~2024-09-15 | CT_ITS ---
EXAMINATION: CTA chest PE protocol DATE: 09/15/2024 11:36 INDICATION: Cough. TECHNIQUE: Computed tomography angiography (CTA) of the chest was performed with 100 mL Omnipaque-350 intravenous contrast timed to evaluate the pulmonary arteries. Coronal maximum intensity projection 3D-reconstructions were created by the technologist. Automated exposure control and iterative reconst ruction technique were employed. The dose-length product was 405.40 mGy-cm. COMPARISON: CT abdomen and pelvis 12/17/2017 FINDINGS: There is mild emphysema. There is mucous plugging in right lower lobe. There are centrilobu lar nodules and tree-in-bud opacities in all lobes with a posterior and lower lobe predominance, cons istent with pneumonia. There is mild dependent atelectasis bilaterally. The heart size is normal. The re are coronary artery calcifications. No pericardial effusion. There are changes of coronary artery bypass grafting. There is no pulmonary embolus. There is severe thoracic spondylosis. IMPRESSION: 1. No pulmonary embolus. 2. Bilateral pneumonia with a posterior and lower lobe predominance. 3. Mild emphysema. Reviewed, dictated and finalized at location A. OTELEGRAPH OPERATOR SERVICER
--- NOTE | 2024-09-15 09:38 | ECG_ITS ---
Test Date: 2024-09-15 09:41:42 Measurements Intervals [place]inson Rate: 71 P: 27 KS: 164 QRS: 94 QRSD: 111 T: 121 QT: 378 QTc: 412 Interpretive Statements SINUS RHYTHM RIGHT AXIS DEVIATION INTRAVENTRICULAR CONDUCTION DELAY DELAYED PRECORDIAL R/S TRANSITION MINIMAL Q WAVES- INFERIOR LEADS BORDERLINE ST-T WAVE ABNORMALITY- ANTEROLAT/HIGH LAT LEADS BASELINE ARTIFACT- I, II, III, AVR, AVL, AVF, V4-V6 ABNORMAL ECG No previous ECG available for comparison Electronically Signed On 09-15-2024 10:39:23 [employer]S OFFICER by Javier Hurt D.O.
[2024-09-15] MEDS: LACTATED RINGERS 1,000 ML 999 ML IV CONT ×2 (09:53→14:07)
--- NOTE | 2024-09-15 09:53 | ED_ITS ---
HPI - URI/Sore Throat General Chief Complaint: Upper Respiratory Infection Stated Complaint: cough, low BP Time Seen by Provider: 09/15/24 09:39 History of Present Illness HPI Narrative: Patient has had a cough for weeks and went to to be seen. Found to have low BPs and sent here. Thinks he hasn't had enough to drink. Related Data Home Medications ?Medication ?Instructions ?Recorded ?Confirmed ?Last Taken ?Type aspirin 81 mg tablet,delayed 81 mg PO DAILY 08/07/19 06/28/24 Unknown History release (Adult Low Dose Aspirin) carvedilol 6.25 mg tablet 3.125 mg PO Q12H 08/07/19 06/28/24 Unknown History multivitamin (Multiple Vitamins 1 tablet PO DAILY 08/07/19 06/28/24 Unknown History tablet) pantoprazole 20 mg tablet,delayed 20 mg PO QAM 08/07/19 06/28/24 Unknown History release tofacitinib 11 mg tablet,extended 11 mg PO DAILY 08/07/19 06/28/24 Unknown History release 24 hr (Xeljanz XR) calcium 500 mg (as 1 tablet PO DAILY 10/26/20 06/28/24 Unknown History carbonate)-vitamin D3 10 mcg (400 unit) tablet irbesartan 75 mg tablet 75 mg PO DAILY 10/26/20 01/07/24 Unknown History rosuvastatin 40 mg tablet 40 mg PO DAILY 10/26/20 06/28/24 Unknown History sildenafil 100 mg tablet 100 mg PO DAILY PRN pain 10/26/20 06/28/24 Unknown History Benadryl 25 mg PO DAILY 10/10/22 06/28/24 Unknown History clopidogrel 75 mg tablet 75 mg PO DAILY 10/10/22 06/28/24 10/20/22 09:00 History leflunomide 20 mg tablet 20 mg PO DAILY 10/10/22 06/28/24 Unknown History cetirizine 10 mg tablet (Zyrtec) 10 mg PO DAILY 04/12/23 06/28/24 Unknown History cyclosporine 0.05 % eye drops in a See Rx Instructions .Route .COMPLEX 04/12/23 06/28/24 Unknown History dropperette (Restasis) nitroglycerin 0.4 mg sublingual See Rx Instructions .Route .COMPLEX 04/12/23 06/28/24 Unknown History tablet vit C 250 mg-vit E 200 unit-zinc See Rx Instructions .Route .COMPLEX 04/12/23 06/28/24 Unknown History ox 12.5 [id number] capsule (ICaps AREDS2) Allergies Allergy/AdvReac Type Severity Reaction Status Date / Time lisinopril Allergy Intermediate Swelling Verified 09/15/24 09:44 of Lip/Tongue/Throat gramicidin D Allergy Mild Rash Verified 09/15/24 09:44 hydrocortisone (From Allergy Mild Rash Verified 09/15/24 09:44 Westcort ([id number])) polymyxin B Allergy Mild Rash Verified 09/15/24 09:44 neomycin AdvReac Mild Rash Verified 09/15/24 09:44 Review of Systems 2 Review of Systems: All systems reviewed & are unremarkable except as noted in HPI and below PMFSH Past Medical History Medical History Essential (primary) hypertension Family history of colon cancer Surgical History Surgical History H/O oral surgery Family History Family History Sibling Patient's brother is in good health Carcinoma of colon Father Family history of malignant neoplasm Patient's father is , Onset Age: 86 Mother Family history of dementia Social History Social History Smoking packs per day: 1.5 Smoking cigarettes per day: 30.0 Years smoked: 40 Smoking pack-years: 60.00 Smoking status: Former smoker Tobacco type: cigarettes Second hand tobacco smoke exposure: No Smoking end date: 08/05/11 Alcohol intake: never Substance use: never Substance use type: does not use Lack of Transportation: No Lack of Food: Never True Current Housing: I Have Housing Concerned About Future Housing: No Difficulty Paying Gas/Electric Bills: No Difficulty Paying for Meds: No Currently Unemployed: No Education: High School Diploma/GED Difficulty w/ Childcare or Family Care: No Living arrangements: with family Spiritual care concerns: No Exam 2 Narrative: EXAMINATION OF ORGAN SYSTEMS/BODY AREAS: Constitutional: Vital signs per nursing GENERAL:[No acute distress, non-toxic appearing.] HEAD: Normal with no signs of head trauma. EYES: EOMI, conjunctiva normal ENT: Hearing grossly intact LUNGS: Nonlabored breathing. HEART: [Regular rate and rhythm] ABD: [Soft], [nontender to palpation] EXT: Normal range of motion SKIN: [No rashes or lesions.] NEURO: [Alert and oriented x 3. No gross focal sensory or strength deficits.] PSYCH: Normal affect Course Vital Signs Vital signs: Vital Signs Temperature 98.7 F 09/15/24 09:39 Pulse Rate 73 09/15/24 09:39 Respiratory Rate 16 09/15/24 09:39 Blood Pressure 86/57 L 09/15/24 09:39 Pulse Oximetry 96 09/15/24 09:39 Temperature 98.7 F 09/15/24 09:39 Pulse Rate 60 09/15/24 13:00 Respiratory Rate 15 09/15/24 13:00 Blood Pressure 106/67 09/15/24 12:45 Pulse Oximetry 98 09/15/24 13:00 MDM - URI/Sore Throat MDM Narrative Medical decision making narrative: Patient presenting here with slightly low blood pressures and oxygen, has been having cough for the last 2 weeks. He looks very well here, though his blood pressure is on the low side. He does have a elevated white count, infectious workup initiated with lactic acid, blood cultures, and judicious IV fluids given his history of heart surgery. Blood pressure did improve, and he has been here for several hours now with normal blood pressure. He is denying complaints. Oxygen is normal. CT PE does show multifocal pneumonia, I will start him on antibiotics. I did discuss and offer admission to the patient, he states he wants to go home, he really does not want to stay. He has normal vital signs at this point and is in no distress, and I cannot keep him here against his well, he does promise that he will come back if he felt worse. He will be started on antibiotics, strict precautions discussed, follow-up to PCP the next few days. Lab Data 09/15/24 10:01 09/15/24 10:01 Labs: Lab Results 09/15/24 09/15/24 09/15/24 Range/Units 10:00 10:01 10:01 WBC 12.9 H (4.5-10.0) K/mm3 RBC 4.22 L (4.6-6.20) M/mm3 Hgb 12.1 L (14.0-18.0) g/dL Hct 37.5 L (42.0-52.0) % MCV 88.9 (80-100) fl MCH 28.7 (26-34) pg MCHC 32.3 (32-36) g/dl RDW 14.7 H (11.5-14.5) % Plt Count 264 (150-375) k/mm3 MPV 9.7 (7.4-10.4) fl Immature Gran % (Auto) 1.1 H (0-0.5) % Neut % (Auto) 85.2 H (45.5-73.1) % Lymph % (Auto) 4.5 L (18.3-44.2) % [place] % (Auto) 8.4 (2.6-8.5) % Eos % (Auto) 0.5 (0-4.4) % Baso % (Auto) 0.3 (0.2-1.2) % Lymph # (Auto) 0.58 L (0.9-3.2) K/mm3 [place] # (Auto) 1.1 H (0.1-0.6) K/mm3 Eos # (Auto) 0.1 (0-0.3) K/mm3 Baso # (Auto) 0.0 (0.0-0.1) K/mm3 Abs Immat Gran (auto) 0.14 H (0.00-0.031) K/mm3 Absolute Neuts (auto) 11.0 H (1.3-6.7) K/mm3 Absolute Nucleated RBC 0.000 (0.0-0.012) K/mm3 Nucleated RBC % 0.0 (0.0-0.2) % D-Dimer 5.17 H (<0.48) ug/mL Sodium Cancelled 133 L Potassium Cancelled Chloride Carbon Dioxide Anion Gap BUN Creatinine Estim Creat Clear Calc Estimated GFR Glucose Lactic Acid 1.2 (0.7-2.0) mmol/L Calcium Total Bilirubin AST ALT Alkaline Phosphatase Troponin I (0.000-0.034) ng/mL NT-Pro-B Natriuret Pep (19.9-100) pg/mL Total Protein Albumin Lipase (23-300) U/L Urine Color (Yellow) Urine Appearance (Clear) Urine pH (5.0-9.0) Ur Specific [place] (1.001-1.035) Urine Protein (Negative) mg/dL Urine Glucose (UA) (Negative) mg/dL Urine Ketones (Negative) mg/dL Ur Blood (Man) (Negative) Urine Nitrate (Negative) Urine Bilirubin (Negative) Urine Urobilinogen (<2.0) mg/dL Leukocyte Esterase Rfl (Negative) MARIO/UL Influenza A (RT-PCR) Negative (Negative) Influenza B (RT-PCR) Negative (Negative) RSV (RT-PCR) Negative (Negative) SARS-CoV-2 RNA (RT-PCR) Negative (Negative) 09/15/24 09/15/24 09/15/24 Range/Units 10:01 10:01 10:01 WBC (4.5-10.0) K/mm3 RBC (4.6-6.20) M/mm3 Hgb (14.0-18.0) g/dL Hct (42.0-52.0) % MCV (80-100) fl MCH (26-34) pg MCHC (32-36) g/dl RDW (11.5-14.5) % Plt Count (150-375) k/mm3 MPV (7.4-10.4) fl Immature Gran % (Auto) (0-0.5) % Neut % (Auto) (45.5-73.1) % Lymph % (Auto) (18.3-44.2) % [place] % (Auto) (2.6-8.5) % Eos % (Auto) (0-4.4) % Baso % (Auto) (0.2-1.2) % Lymph # (Auto) (0.9-3.2) K/mm3 [place] # (Auto) (0.1-0.6) K/mm3 Eos # (Auto) (0-0.3) K/mm3 Baso # (Auto) (0.0-0.1) K/mm3 Abs Immat Gran (auto) (0.00-0.031) K/mm3 Absolute Neuts (auto) (1.3-6.7) K/mm3 Absolute Nucleated RBC (0.0-0.012) K/mm3 Nucleated RBC % (0.0-0.2) % D-Dimer (<0.48) ug/mL Sodium Potassium 4.2 Chloride Cancelled 105 Carbon Dioxide Cancelled 19 L Anion Gap Cancelled BUN Creatinine Estim Creat Clear Calc Estimated GFR Glucose Lactic Acid (0.7-2.0) mmol/L Calcium Total Bilirubin AST ALT Alkaline Phosphatase Troponin I (0.000-0.034) ng/mL NT-Pro-B Natriuret Pep (19.9-100) pg/mL Total Protein Albumin Lipase (23-300) U/L Urine Color (Yellow) Urine Appearance (Clear) Urine pH (5.0-9.0) Ur Specific [place] (1.001-1.035) Urine Protein (Negative) mg/dL Urine Glucose (UA) (Negative) mg/dL Urine Ketones (Negative) mg/dL Ur Blood (Man) (Negative) Urine Nitrate (Negative) Urine Bilirubin (Negative) Urine Urobilinogen (<2.0) mg/dL Leukocyte Esterase Rfl (Negative) MARIO/UL Influenza A (RT-PCR) (Negative) Influenza B (RT-PCR) (Negative) RSV (RT-PCR) (Negative) SARS-CoV-2 RNA (RT-PCR) (Negative) 09/15/24 09/15/24 09/15/24 Range/Units 10:01 10:01 10:01 WBC (4.5-10.0) K/mm3 RBC (4.6-6.20) M/mm3 Hgb (14.0-18.0) g/dL Hct (42.0-52.0) % MCV (80-100) fl MCH (26-34) pg MCHC (32-36) g/dl RDW (11.5-14.5) % Plt Count (150-375) k/mm3 MPV (7.4-10.4) fl Immature Gran % (Auto) (0-0.5) % Neut % (Auto) (45.5-73.1) % Lymph % (Auto) (18.3-44.2) % [place] % (Auto) (2.6-8.5) % Eos % (Auto) (0-4.4) % Baso % (Auto) (0.2-1.2) % Lymph # (Auto) (0.9-3.2) K/mm3 [place] # (Auto) (0.1-0.6) K/mm3 Eos # (Auto) (0-0.3) K/mm3 Baso # (Auto) (0.0-0.1) K/mm3 Abs Immat Gran (auto) (0.00-0.031) K/mm3 Absolute Neuts (auto) (1.3-6.7) K/mm3 Absolute Nucleated RBC (0.0-0.012) K/mm3 Nucleated RBC % (0.0-0.2) % D-Dimer (<0.48) ug/mL Sodium Potassium Chloride Carbon Dioxide Anion Gap 9 BUN Cancelled 22 H Creatinine Cancelled 1.37 H Estim Creat Clear Calc Cancelled Estimated GFR Glucose Lactic Acid (0.7-2.0) mmol/L Calcium Total Bilirubin AST ALT Alkaline Phosphatase Troponin I (0.000-0.034) ng/mL NT-Pro-B Natriuret Pep (19.9-100) pg/mL Total Protein Albumin Lipase (23-300) U/L Urine Color (Yellow) Urine Appearance (Clear) Urine pH (5.0-9.0) Ur Specific [place] (1.001-1.035) Urine Protein (Negative) mg/dL Urine Glucose (UA) (Negative) mg/dL Urine Ketones (Negative) mg/dL Ur Blood (Man) (Negative) Urine Nitrate (Negative) Urine Bilirubin (Negative) Urine Urobilinogen (<2.0) mg/dL Leukocyte Esterase Rfl (Negative) MARIO/UL Influenza A (RT-PCR) (Negative) Influenza B (RT-PCR) (Negative) RSV (RT-PCR) (Negative) SARS-CoV-2 RNA (RT-PCR) (Negative) 09/15/24 09/15/24 09/15/24 Range/Units 10:01 10:01 10:01 WBC (4.5-10.0) K/mm3 RBC (4.6-6.20) M/mm3 Hgb (14.0-18.0) g/dL Hct (42.0-52.0) % MCV (80-100) fl MCH (26-34) pg MCHC (32-36) g/dl RDW (11.5-14.5) % Plt Count (150-375) k/mm3 MPV (7.4-10.4) fl Immature Gran % (Auto) (0-0.5) % Neut % (Auto) (45.5-73.1) % Lymph % (Auto) (18.3-44.2) % [place] % (Auto) (2.6-8.5) % Eos % (Auto) (0-4.4) % Baso % (Auto) (0.2-1.2) % Lymph # (Auto) (0.9-3.2) K/mm3 [place] # (Auto) (0.1-0.6) K/mm3 Eos # (Auto) (0-0.3) K/mm3 Baso # (Auto) (0.0-0.1) K/mm3 Abs Immat Gran (auto) (0.00-0.031) K/mm3 Absolute Neuts (auto) (1.3-6.7) K/mm3 Absolute Nucleated RBC (0.0-0.012) K/mm3 Nucleated RBC % (0.0-0.2) % D-Dimer (<0.48) ug/mL Sodium Potassium Chloride Carbon Dioxide Anion Gap BUN Creatinine Estim Creat Clear Calc 42 Estimated GFR Cancelled 51 L Glucose Cancelled 103 Lactic Acid (0.7-2.0) mmol/L Calcium Cancelled Total Bilirubin AST ALT Alkaline Phosphatase Troponin I (0.000-0.034) ng/mL NT-Pro-B Natriuret Pep (19.9-100) pg/mL Total Protein Albumin Lipase (23-300) U/L Urine Color (Yellow) Urine Appearance (Clear) Urine pH (5.0-9.0) Ur Specific [place] (1.001-1.035) Urine Protein (Negative) mg/dL Urine Glucose (UA) (Negative) mg/dL Urine Ketones (Negative) mg/dL Ur Blood (Man) (Negative) Urine Nitrate (Negative) Urine Bilirubin (Negative) Urine Urobilinogen (<2.0) mg/dL Leukocyte Esterase Rfl (Negative) MARIO/UL Influenza A (RT-PCR) (Negative) Influenza B (RT-PCR) (Negative) RSV (RT-PCR) (Negative) SARS-CoV-2 RNA (RT-PCR) (Negative) 09/15/24 09/15/24 09/15/24 Range/Units 10:01 10:01 10:01 WBC (4.5-10.0) K/mm3 RBC (4.6-6.20) M/mm3 Hgb (14.0-18.0) g/dL Hct (42.0-52.0) % MCV (80-100) fl MCH (26-34) pg MCHC (32-36) g/dl RDW (11.5-14.5) % Plt Count (150-375) k/mm3 MPV (7.4-10.4) fl Immature Gran % (Auto) (0-0.5) % Neut % (Auto) (45.5-73.1) % Lymph % (Auto) (18.3-44.2) % [place] % (Auto) (2.6-8.5) % Eos % (Auto) (0-4.4) % Baso % (Auto) (0.2-1.2) % Lymph # (Auto) (0.9-3.2) K/mm3 [place] # (Auto) (0.1-0.6) K/mm3 Eos # (Auto) (0-0.3) K/mm3 Baso # (Auto) (0.0-0.1) K/mm3 Abs Immat Gran (auto) (0.00-0.031) K/mm3 Absolute Neuts (auto) (1.3-6.7) K/mm3 Absolute Nucleated RBC (0.0-0.012) K/mm3 Nucleated RBC % (0.0-0.2) % D-Dimer (<0.48) ug/mL Sodium Potassium Chloride Carbon Dioxide Anion Gap BUN Creatinine Estim Creat Clear Calc Estimated GFR Glucose Lactic Acid (0.7-2.0) mmol/L Calcium 9.2 Total Bilirubin Cancelled 0.8 AST Cancelled 27 ALT Cancelled Alkaline Phosphatase Troponin I (0.000-0.034) ng/mL NT-Pro-B Natriuret Pep (19.9-100) pg/mL Total Protein Albumin Lipase (23-300) U/L Urine Color (Yellow) Urine Appearance (Clear) Urine pH (5.0-9.0) Ur Specific [place] (1.001-1.035) Urine Protein (Negative) mg/dL Urine Glucose (UA) (Negative) mg/dL Urine Ketones (Negative) mg/dL Ur Blood (Man) (Negative) Urine Nitrate (Negative) Urine Bilirubin (Negative) Urine Urobilinogen (<2.0) mg/dL Leukocyte Esterase Rfl (Negative) MARIO/UL Influenza A (RT-PCR) (Negative) Influenza B (RT-PCR) (Negative) RSV (RT-PCR) (Negative) SARS-CoV-2 RNA (RT-PCR) (Negative) 09/15/24 09/15/24 09/15/24 Range/Units 10:01 10:01 10:01 WBC (4.5-10.0) K/mm3 RBC (4.6-6.20) M/mm3 Hgb (14.0-18.0) g/dL Hct (42.0-52.0) % MCV (80-100) fl MCH (26-34) pg MCHC (32-36) g/dl RDW (11.5-14.5) % Plt Count (150-375) k/mm3 MPV (7.4-10.4) fl Immature Gran % (Auto) (0-0.5) % Neut % (Auto) (45.5-73.1) % Lymph % (Auto) (18.3-44.2) % [place] % (Auto) (2.6-8.5) % Eos % (Auto) (0-4.4) % Baso % (Auto) (0.2-1.2) % Lymph # (Auto) (0.9-3.2) K/mm3 [place] # (Auto) (0.1-0.6) K/mm3 Eos # (Auto) (0-0.3) K/mm3 Baso # (Auto) (0.0-0.1) K/mm3 Abs Immat Gran (auto) (0.00-0.031) K/mm3 Absolute Neuts (auto) (1.3-6.7) K/mm3 Absolute Nucleated RBC (0.0-0.012) K/mm3 Nucleated RBC % (0.0-0.2) % D-Dimer (<0.48) ug/mL Sodium Potassium Chloride Carbon Dioxide Anion Gap BUN Creatinine Estim Creat Clear Calc Estimated GFR Glucose Lactic Acid (0.7-2.0) mmol/L Calcium Total Bilirubin AST ALT 19 Alkaline Phosphatase Cancelled 83 Troponin I < 0.012 Cancelled (0.000-0.034) ng/mL NT-Pro-B Natriuret Pep 222 H (19.9-100) pg/mL Total Protein Cancelled Albumin Lipase (23-300) U/L Urine Color (Yellow) Urine Appearance (Clear) Urine pH (5.0-9.0) Ur Specific [place] (1.001-1.035) Urine Protein (Negative) mg/dL Urine Glucose (UA) (Negative) mg/dL Urine Ketones (Negative) mg/dL Ur Blood (Man) (Negative) Urine Nitrate (Negative) Urine Bilirubin (Negative) Urine Urobilinogen (<2.0) mg/dL Leukocyte Esterase Rfl (Negative) MARIO/UL Influenza A (RT-PCR) (Negative) Influenza B (RT-PCR) (Negative) RSV (RT-PCR) (Negative) SARS-CoV-2 RNA (RT-PCR) (Negative) 09/15/24 09/15/24 09/15/24 Range/Units 10:01 10:01 11:46 WBC (4.5-10.0) K/mm3 RBC (4.6-6.20) M/mm3 Hgb (14.0-18.0) g/dL Hct (42.0-52.0) % MCV (80-100) fl MCH (26-34) pg MCHC (32-36) g/dl RDW (11.5-14.5) % Plt Count (150-375) k/mm3 MPV (7.4-10.4) fl Immature Gran % (Auto) (0-0.5) % Neut % (Auto) (45.5-73.1) % Lymph % (Auto) (18.3-44.2) % [place] % (Auto) (2.6-8.5) % Eos % (Auto) (0-4.4) % Baso % (Auto) (0.2-1.2) % Lymph # (Auto) (0.9-3.2) K/mm3 [place] # (Auto) (0.1-0.6) K/mm3 Eos # (Auto) (0-0.3) K/mm3 Baso # (Auto) (0.0-0.1) K/mm3 Abs Immat Gran (auto) (0.00-0.031) K/mm3 Absolute Neuts (auto) (1.3-6.7) K/mm3 Absolute Nucleated RBC (0.0-0.012) K/mm3 Nucleated RBC % (0.0-0.2) % D-Dimer (<0.48) ug/mL Sodium Potassium Chloride Carbon Dioxide Anion Gap BUN Creatinine Estim Creat Clear Calc Estimated GFR Glucose Lactic Acid (0.7-2.0) mmol/L Calcium Total Bilirubin AST ALT Alkaline Phosphatase Troponin I (0.000-0.034) ng/mL NT-Pro-B Natriuret Pep (19.9-100) pg/mL Total Protein 7.0 Albumin Cancelled 3.9 Lipase 64 (23-300) U/L Urine Color Yellow (Yellow) Urine Appearance Clear (Clear) Urine pH 5.5 (5.0-9.0) Ur Specific [place] 1.014 (1.001-1.035) Urine Protein Negative (Negative) mg/dL Urine Glucose (UA) 3+ H (Negative) mg/dL Urine Ketones Negative (Negative) mg/dL Ur Blood (Man) Negative (Negative) Urine Nitrate Negative (Negative) Urine Bilirubin Negative (Negative) Urine Urobilinogen 0.2 (<2.0) mg/dL Leukocyte Esterase Rfl Negative (Negative) MARIO/UL Influenza A (RT-PCR) (Negative) Influenza B (RT-PCR) (Negative) RSV (RT-PCR) (Negative) SARS-CoV-2 RNA (RT-PCR) (Negative) Discharge Plan Discharge Clinical Impression: Multifocal pneumonia Patient Disposition: Home, Self-Care Condition: Stable Instructions: Pneumonia (ED) Additional Instructions: Please follow up with your PCP and take the antibiotics as prescribed; make sure you are keeping hydrated. Come back to the emergency room immediately if you feel like you cannot breathe, if you feel dizzy, or anything else concerning. Patient Language: Somali Prescriptions: New doxycycline hyclate 100 mg capsule 100 mg PO Q12H 5 Days Qty: 10 0RF albuterol sulfate 90 mcg/actuation HFA aerosol inhaler 2 puff inhalation QID PRN (Reason: shortness of breath or wheezing) Qty: 8.5 0RF amoxicillin-pot clavulanate 875-125 mg tablet 1 tablet PO Q12H Qty: 10 0RF No Action cyclosporine [Restasis] 0.05 % dropperette See Rx Instructions .ROUTE .COMPLEX Rx Instructions: Rx cetirizine [Zyrtec] 10 mg Tablet 10 mg PO DAILY nitroglycerin 0.4 mg tablet, sublingual See Rx Instructions .ROUTE .COMPLEX Rx Instructions: Rx ICaps AREDS2 250 mg-200 unit -12.5 mg-1 mg Capsule See Rx Instructions .ROUTE .COMPLEX Rx Instructions: Rx calcium carbonate-vitamin D3 500 mg(1,250mg) -400 unit tablet 1 tablet PO DAILY irbesartan 75 mg tablet 75 mg PO DAILY rosuvastatin 40 mg tablet 40 mg PO DAILY sildenafil 100 mg tablet 100 mg PO DAILY PRN (Reason: pain) Rx Instructions: administer 30 minutes to 4 hours before activity cyclobenzaprine 10 mg tablet 10 mg PO TID PRN (Reason: muscle spasm) Qty: 30 0RF aspirin [Adult Low Dose Aspirin] 81 mg tablet,delayed release (DR/EC) 81 mg PO DAILY multivitamin [Multiple Vitamins] Tablet 1 tablet PO DAILY pantoprazole 20 mg tablet,delayed release (DR/EC) 20 mg PO QAM Xeljanz XR 11 mg tablet extended release 24 hr 11 mg PO DAILY carvedilol 6.25 mg tablet 3.125 mg PO Q12H gabapentin 300 mg capsule 300 mg PO QPM Qty: 90 3RF clopidogrel 75 mg tablet 75 mg PO DAILY leflunomide 20 mg tablet 20 mg PO DAILY Benadryl 25 mg PO DAILY cefuroxime axetil 250 mg tablet 250 mg PO Q12H Qty: 20 0RF prednisone 5 mg tablet 5 mg PO DIRECTED Qty: 21 0RF Rx Instructions: 6 po today, decreasing dose by one tablet daily until gone(6,5,4,3,2,1) trazodone 50 mg tablet 50 mg PO QHS Qty: 90 1RF dicyclomine 20 mg tablet 20 mg PO DAILY Qty: 90 1RF citalopram 20 mg tablet 20 mg PO DAILY Qty: 90 1RF fluticasone propionate [Flonase Allergy Relief] 50 mcg/actuation spray,suspension 2 spray intranasal DAILY Qty: 16 5RF Rx Instructions: administer into each nostril Follow-up/Referrals: Mayur Urena DO [Primary Care Provider] - 2 Days
[2024-09-15 10:10] LABS: Basophils Percent Auto 0.3 % (0.2-1.2); Eosinophils Absolute Auto 0.1 K/mm3 (0-0.3); Eosinophils Percent Auto 0.5 % (0-4.4); Hematocrit 37.5 % (42.0-52.0); Hemoglobin 12.1 g/dL (14.0-18.0); Immature Granulocyte Absolute 0.14 K/mm3 (0.00-0.031); Immature Granulocyte Percent A 1.1 % (0-0.5); Lymphocytes Absolute Auto 0.58 K/mm3 (0.9-3.2); Lymphocytes Percent Auto 4.5 % (18.3-44.2); Mean Corpuscular HGB Conc 32.3 g/dl (32-36); Mean Corpuscular Hemoglobin 28.7 pg (26-34); Mean Corpuscular Volume 88.9 fl (80-100); Mean Platelet Volume 9.7 fl (7.4-10.4); Monocytes Absolute Auto 1.1 K/mm3 (0.1-0.6); Monocytes Percent Auto 8.4 % (2.6-8.5); Neutrophils Percent Auto 85.2 % (45.5-73.1); Platelet Count Result 264 k/mm3 (150-375); Red Blood Count 4.22 M/mm3 (4.6-6.20); Red Cell Distribution Width 14.7 % (11.5-14.5); White Blood Count 12.9 K/mm3 (4.5-10.0)
[2024-09-15 10:24] LABS: Lactic Acid Reflex 1.2 mmol/L (0.7-2.0)
[2024-09-15 10:24] LABS: Alanine Aminotransferase 19 U/L (6-50); Albumin Level 3.9 g/dL (3.5-5.1); Alkaline Phosphatase 83 U/L (38-126); Anion Gap 9 mmol/L (4-12); Aspartate Amino Transferase 27 U/L (17-59); Bilirubin,Total 0.8 mg/dL (0.2-1.3); Blood Urea Nitrogen 22 mg/dL (9-20); Calcium 9.2 mg/dL (8.4-10.2); Carbon Dioxide 19 mmol/L (22-30); Chloride 105 mmol/L (98-107); Estimated CRCL calculation 42 ml/min; Estimated Glomerular Filt Rate 51; Glucose 103 mg/dL (65-110); Lipase 64 U/L (23-300); Potassium 4.2 mmol/L (3.4-5.0); Sodium 133 mmol/L (137-145)
--- OUTSIDE RECORDS SUMMARY | 2024-09-15 10:34 | XMS_ITS | Encounter Summary ---
Author Organization [facility] Address [address] [place] [address] Phone Care Team Providers Care Nurse Informaticist Name Role Phone Sebastian Pitts MD Primary Care Provider [phone] Mayur Urena DO Primary Care Provider [phone] Encounter Details Date Type Department Care Team (Late st Contact Info) Description 11/27/2022 Orders Only [facility] Scanning, Provider Social History Tobacco Use Types Packs/Day Years Used Date Smoking Tobacco: Former Smokeless Tobacco: Never Comments:Currently using Donaldo orette gum regularly. Alcohol Use Standard Drinks/Week Comments Yes 0 (1 standard drink = 0.6 oz pur e alcohol) Rarely PHQ-2 Answer Date Recorded PHQ-2 Total Score (If total score is 3 or more points, staff should administer the PHQ-9) 0 11/17/2019 Sex and Gender Information Value Date Recorded Sex Assigned at Not on file Legal Sex Male 3:13 AM [employer] Gender Identity Male 03/26/2018 8:52 AM CDT Sexual Orientation Straight 07/05/2020 1: 06 PM [employer] documented as of this encounter Plan of Treatment Not on file documented as of this encounter Procedures Procedure Name Priority Date/Time Associated Diagnosis Comments SCAN - RADIOLOGY/IMAGING 11/27/2022 documented in this encounter Results * SCAN - RADIOLOGY/IMAGING (11/27/2022) Anatomical Region Laterality Modality Other us Provider Scanning Edited Result - Final documented in this encounter Visit Diagnoses Not on filedocumented in this encounter Care Teams Nurse Informaticist Relationship Specialty Start Date End Date Sebastian Pitts MD [address] [place] [address] PCP - General 11/02/16 07/21/24 Mayur Urena DO [address] [place] [address] PCP - General Internal Medicine 07/22/24 documented as of this encounter
--- OUTSIDE RECORDS SUMMARY | 2024-09-15 10:34 | XMS_ITS | Clinical Summary ---
Author Organization [facility] [address] [facility] [address] Address [address] [place] [address] Care Team Providers Care Medical Staff Director Name Role Phone Mayur Urena DO Primary Care Provider [phone] Allergies Active Allergy Reactions Criticality Noted Date Comments Bacitracin Rash Medium Colistimethate Sodium Rash Medium Gramicidin D Rash Medium Lisinopril Angioedema,Other (See comments) High 06/11/2023 Reaction: lips swelled, , Reaction: FACIAL SWELLING, , Reaction: Other, Lips swell Neomycin Rash Medium Gbmjonqy-Xslketozjd-Oehdy yxin Rash,Other (See comments) Medium 07/25/2011 Reaction: RASH, Reaction: Rash, Neosporin (Neomycin-Polymyx) Unknown Polymyxin B Rash Medium Pramoxine Rash Medium Medications aspirin 81 mg tablet take 1 tablet (81MG) by oral route every day 0 12/14/19 12 Active multivitamin tablet tablet take 1 tablet by oral route every day with food 0 12/14/19 12 Active citalopram (CeleXA) 20 mg tablet take 1 tablet by oral route every day 0 0 03/02/20 13 Active gabapentin (NEURONTIN) 300 mg capsuleIndications :Neuropathic Pain Take 1 tablet by mouth at night 90 capsule 3 05/10/20 20 Active ibuprofen-diphenhy dramine HCl 200-25 mg capsuleIndications :Insomnia Take 1 tablet by mouth nightly Active cyclobenzaprine (FLEXERIL) 10 mg tabletIndications: Muscle Spasm Take 1 tablet (10 mg total) by mouth 2 (two) times a day as needed for muscle spasms 0 05/05/20 23 Active dicyclomine (BENTYL) 20 mg tabletIndications: Abdominal Pain with Cramps,Irritable Bowel Syndrome Take 1 tablet (20 mg total) by mouth licensed mortgage loan officer before breakfast 05/29/20 23 Active traZODone (DESYREL) 50 mg tabletIndications: insomnia associated with depression Take 1 tablet (50 mg total) by mouth nightly 04/16/20 23 Active tofacitinib (Xeljanz XR) 11 mgIndications:Rheu matoid Arthritis Take 1 tablet (11 mg total) by mouth daily 90 tablet 1 10/30/19 24 Active sacubitriL-valsart an (ENTRESTO) 24-26 mg tabletIndications: chronic heart failure Take 1 tablet by mouth 2 (two) times a day 60 tablet 11 04/20/20 24 Active empagliflozin (JARDIANCE) 10 mg tablet Take 1 tablet (10 mg total) by mouth daily 90 tablet 3 04/20/20 24 Active ranolazine ER (RANEXA) 500 mg 12 hr tabletIndications: Coronary artery disease of [place] artery of [place] heart with stable angina pectoris (HCC) Take 1 tablet (500 mg total) by mouth 2 (two) times a day 60 tablet 11 04/24/20 24 025 Active carvediloL (COREG) 3.125 mg tabletIndications: Ischemic cardiomyopathy TAKE 1 TABLET BY MOUTH TWICE A DAY WITH FOOD 180 tablet 3 05/07/20 24 Active clopidogreL (PLAVIX) 75 mg tablet Take 1 tablet (75 mg total) by mouth daily 90 tablet 1 05/15/20 24 Active leflunomide (ARAVA) 20 mg tabletIndications: Rheumatoid arthritis involving multiple sites with positive rheumatoid factor (CMS/HCC) (HCC) Take 1 tablet (20 mg total) by mouth daily 90 tablet 1 06/09/[address] (PROTONIX) 20 mg EC tablet TAKE 1 TABLET BY MOUTH EVERY DAY 90 tablet 2 06/25/20 24 Active rosuvastatin (CRESTOR) 40 mg tablet TAKE 1 TABLET BY MOUTH EVERY DAY 90 tablet 06/25/20 24 Active sildenafiL (VIAGRA) 100 mg tablet TAKE 1 TABLET BY MOUTH EVERY DAY NEEDED FOR ERECTILE DYSFUNCTION 10 tablet 11 07/23/20 24 Active fluticasone propionate (FLONASE) 50 mcg/actuation nasal spray INSTILL 2 SPRAY INTRANASALLY DAILY ADMINISTER INTO EACH NOSTRIL 06/01/20 24 Active predniSONE (DELTASONE) 5 mg tablet Take 1 tablet (5 mg) by mouth daily 90 tablet 1 08/17/19 25 Active predniSONE (DELTASONE) 5 mg tablet Take 1 tablet (5 mg) by mouth daily 03/06/20 24 025 Discontin ued(Reord er) Active Problems Problem Noted Date Diagnosed Date Ischemic cardiomyopathy 09/15/2024 Elevated PSA 12/17/2023 Foot pain, left 03/03/2021 Assessment & Plan (03/03/2021 8:46 AM CDT): 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 I suggested that the patient use a toe sleeve to protect the digit and potentially maintain the toe in better alignment. He should wear a shoe with a rigid forefoot. I discussed with him if not improving that I would recommend plain films of the foot in our institution with referral to Orthopedics foot. Bilateral impacted cerumen 02/20/2021 Cholesteatoma of external auditory canal, right 04/01/2020 Assessment & Plan (04/01/2020 4:03 PM CDT): Debrided in clinic. No evidence of cholesteatoma in the ME. RTC 6 months for debridement. Mixed conductive and sensorineural hearing loss, bilateral 02/24/2019 Assessment & Plan (04/01/2020 4:04 PM CDT): Audiogram stable compared to 2019. Repeat audiogram in 1 year. Assessment & Plan (03/27/2019 6:42 PM CDT): Continue with his current amplification as he is happy with his hearing aids. He may consider a bone conduction device in the future if his hearing aids are not helpful Tympanic membrane perforation, marginal, right 0 02/24/2019 Assessment & Plan (04/01/2020 4:02 PM CDT): Perforation is stable without active infection. Given that this is his better hearing ear would not advise tympanoplasty at this time. Assessment & Plan (03/27/2019 6:41 PM CDT): I would not recommend tympanoplasty given that this is his better hearing ear and the perforation is relatively small. The patient is in agreement and will follow up in 1 year. History of tympanomastoidectomy 02/24/2019 Chronic otitis media 02/24/2019 History of total right knee replacement 03/07/20 18 Arthritis of left ankle 07/20/2017 Rectal hemorrhage 02/26/2017 High risk medications (not anticoagulants) long- term use 09/01/2014 Atherosclerosis of coronary artery 06/04/2014 Overview (11/08/2016): Coronary atherosclerosis Osteopenia 05/19/2014 Flushing 01/12/2013 Encounter for long-term (current) use of antibio tics 01/12/2013 Osteoarthrosis involving more than one site 03/2012 Septic arthritis 01/08/2011 Hypercholesterolemia 08/06/2009 Rheumatoid arthritis involvi ng multiple sites with positive rheumatoid factor ([facility]) 08/06/2009 Encounter for preventive health examination 07/06 Resolved Problems Problem Noted Date Diagnosed Date Resolved Date Knee pain 03/18/2015 03/07/2018 Encounters Date Type Department Care Team Description 09/11/2024 4:35 PM DIE CASTING MACHINE MAINTAINER Lab [facility] Advanced [facility] ([facility]) [address] [place] [address] SARAI (acute kidney injury) ([facility]) 09/11/2024 2:15 PM DIE CASTING MACHINE MAINTAINER Office Visit [facility] Nephrology [address] [facility] 5th [place] [address] [place] [address] Merlin Horton MD Lower urinary tract symptoms (LUTS) (Primary Dx); Elevated serum creatinine; Rheumatoid arthritis involving multiple sites with positive rheumatoid factor ([facility]) ([facility]); Ischemic cardiomyopathy 09/07/2024 Orders Only [facility] Rheumatology [address] [facility] 2[address] [place] [address] Tabby Sweeney RMA Foot pain, left (Primary Dx) 08/07/2024 10:40 AM DIE CASTING MACHINE MAINTAINER Office Visit [facility] ([facility] - [facility] ENT [address] [facility] 11[address] [place] [address] [place] [address] Cortez Go MD Bilateral impacted cerumen (Primary Dx) 08/07/2024 9:30 AM DIE CASTING MACHINE MAINTAINER Procedure visit [facility] Otolaryngology [address] [facility] [address] [place] [address] [place] [address] Alecia Grewal Au.D. Mixed conductive and sensorineural hearing loss, bilateral (Primary Dx) 07/24/2024 Telephone [facility] Cardiology [address] [place] [address] Dl [place] MD [employer]; Med Refill 07/22/2024 1:00 PM DIE CASTING MACHINE MAINTAINER Office Visit [facility] Cardiology [address] [place] [address] Dl [place] MD Coronary artery disease of [place] artery of [place] heart with stable angina pectoris (HCC) (Primary Dx); History of ST elevation myocardial infarction; Status post angioplasty with stent; S/P CABG x 3; Ischemic cardiomyopathy; PAD (peripheral artery disease) (HCC) 07/17/2024 Telephone [facility] Rheumatology [address] [facility] 5[address] [place] [id number] Tawanna Shafer MD from Last 3 Months Immunizations Name Administration Dates Next Due Influenza, Split 05/05/2018 Influenza, Trivalent, Cell C ulture-based MDCK, Preservative Free, Antibiotic Free, Intramuscular 07/16/2013 Influenza, Trivalent, IM (MDV) 07/24/2012 Influenza, Trivalent, Preservative Free, Intramu scular 08/25/2009 PPD TEST 01/21/2012 Pneumococcal Conjugate PCV 13 05/02/2020 Pneumococcal Conjugate Pcv20 12/24/2022 Surgical History Surgery Date Site/Laterality Comments OTHER SURGICAL HISTORY Right elbow surgery due to abscess OTHER SURGICAL HISTORY 08/05/2003 - 08/04/2004 Back surgery OTHER SURGICAL HISTORY 08/05/1993 - 08/04/1994 Bilateral b/l ear implants HEART SURGERY CABG/unknown date per pt November KNEE SURGERY 08/05/2017 - 08/04/2018 Right ELBOW SURGERY 08/05/1999 - 08/04/2000 Right EAR SURGERY unknown date CARDIAC STENT PLACEMENT x3 unknown dates COLONOSCOPY Medical History Medical History Date Comments Chronic coronary artery disease Coronary Artery Disease Hypertension Hypertension Hx Other Medical Myocardial Infa rction 11/2011, 08/2018 Rheumatoid arthritis (HCC) Rheum atoid arthritis Osteoarthritis Osteoarthritis Hx Other Medical Dyslipidemia 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 Hx Other Medical Osteomyelitis Hx Other Medical 2010 Meningitis - Vi ral Hx Other Medical ckd Hx Other Medical 2011 Infection R elb ow - IV ATB Seasonal allergies Heart disease Hypertension HL (hearing loss) Myocardial infarction (HCC) Family History Medical History Relation Name Comments Cancer Sister 1 Lucy Munguia Hearing loss Sister 1 Lucy Munguia Other Sister 2 Colon ca; Relation Name Status Comments Sister 1 Lucy Munguia Alive Sister 2 Social History Tobacco Use Types Packs/Day Years Used Date Smoking Tobacco: Former Smokeless Tobacco: Never Tobacco Cessation:Counseling Given: Not Answered Comments:Currently using Nicorette gum regularly. Alcohol Use Standard Drinks/Week Comments Yes 0 (1 standard drink = 0.6 oz pur e alcohol) Rarely AUDIT-C Answer Date Recorded Q1: How often do you have a drink containing alcohol? Never 09/11/2024 Q2: How many drinks containi ng alcohol do you have on a typical day when you are drinking? Patient does not drink Q3: How often do you have si x or more drinks on one occasion? Never 09/11/2024 PHQ-2 Answer Date Recorded PHQ-2 Total Score (If total score is 3 or more points, staff should administer the PHQ-9) 0 11/17/2019 Personal Safety Answer Date Recorded Have you ever been in or are you currently in a harmful physical or emotional relationship or is someone making you feel afraid or unsafe? Denies 01/13/2024 Sex and Gender Information Value Date Recorded Sex Assigned at Not on file Legal Sex Male 3:13 AM DIE CASTING MACHINE MAINTAINER Gender Identity Male 03/26/2018 8:52 AM CDT Sexual Orientation Straight 07/05/2020 1: 06 PM DIE CASTING MACHINE MAINTAINER Obstetrics History Last Filed Vital Signs Vital Sign Reading Time Taken Comments Blood Pressure 100/67 09/11/2024 1:59 PM DIE CASTING MACHINE MAINTAINER Pulse 75 09/11/2024 1:59 PM DIE CASTING MACHINE MAINTAINER Temperature 36.7 C (98.1 F) 09/11/2024 1:59 PM DIE CASTING MACHINE MAINTAINER Respiratory Rate 16 09/11/2024 1:59 PM DIE CASTING MACHINE MAINTAINER Oxygen Saturation 95% 09/11/2024 1:59 PM DIE CASTING MACHINE MAINTAINER Inhaled Oxygen Concentration - - Weight 73.2 kg (161 lb 6.4 oz) 09/11/2024 1:59 P M DIE CASTING MACHINE MAINTAINER Height 177.8 cm (5' 10 ) 07/22/2024 1:04 PM DIE CASTING MACHINE MAINTAINER Body Mass Index 23.16 07/22/2024 1:04 PM DIE CASTING MACHINE MAINTAINER Plan of Treatment Health Maintenance Due Date Last Done Comments Colon Cancer Screening-Colonoscopy 1950 Hepatitis C Screening 1950 DTaP/Tdap/Td Vaccine (1 - Tdap) 1961 Hepatitis B Screening 1968 Zoster Vaccine (1 of 2) 2000 Abdominal Aortic Aneurysm (A AA) Screen 2015 Well Visit 65+ 2015 Depression Screening 11/17/2020 11/18/2019 Influenza Vaccine (#1) 2024 8, 07/16/2013, 07/24/2012, Additional history exists Fall Risk Assessment 01/12/2025 01/13/2024, 11/18/19 Pneumococcal vaccine 65+ Completed 12/24/2022, 04/06 Procedures Procedure Name Priority Date/Time Associated Diagnosis Comments EGFR Routine 09/11/2024 3:11 PM DIE CASTING MACHINE MAINTAINER SARAI (acute kidney injury) (HCC) DIFFERENTIAL AUTO Routine 09/11/2024 3:1 1 PM DIE CASTING MACHINE MAINTAINER SARAI (acute kidney injury) (HCC) RENAL FUNCTION PANEL Routine 09/11/2024 3:11 PM DIE CASTING MACHINE MAINTAINER SARAI (acute kidney injury) (HCC) CBC WITH AUTO DIFFERENTIAL Routine 09/11/2024 3:11 PM DIE CASTING MACHINE MAINTAINER SARAI (acute kidney injury) (HCC) AUDBASE RESULTS 08/07/2024 8:53 AM DIE CASTING MACHINE MAINTAINER CREATININE, URINE, RANDOM Routine 07/13/2024 10:36 AM DIE CASTING MACHINE MAINTAINER Rheumatoid arthritis involving multiple sites with positive rheumatoid factor (CMS/HCC) (HCC) High risk medication use Elevated serum creatinine UREA NITROGEN, URINE, RANDOM Routine 07/13/2024 10:36 AM DIE CASTING MACHINE MAINTAINER Rheumatoid arthritis involving multiple sites with positive rheumatoid factor (CMS/HCC) (HCC) High risk medication use Elevated serum creatinine RENAL FUNCTION PANEL Routine 07/13/2024 10:36 AM DIE CASTING MACHINE MAINTAINER Rheumatoid arthritis involving multiple sites with positive rheumatoid factor (CMS/HCC) (HCC) High risk medication use Elevated serum creatinine REFLEXIVE URINE CULTURE Routine 07/13/2024 10:36 AM DIE CASTING MACHINE MAINTAINER URINALYSIS AND REFLEX TO MICROSCOPIC AND CULTURE Routine 07/13/2024 10:36 AM DIE CASTING MACHINE MAINTAINER Rheumatoid arthritis involving multiple sites with positive rheumatoid factor (CMS/HCC) (HCC) High risk medication use Elevated serum creatinine from Last 3 Months Results * (ABNORMAL) eGFR (09/11/2024 3:11 PM DIE CASTING MACHINE MAINTAINER) eGFR 51(L) >=60 mL/min/1. 73 m2 Comment: Interpretive Data Reference Interval Normal >/= 90 mL/min/1.73m2 Mildly decreased* 60 - 89 mL/min/1.73m2 Mildly to moderately decreased 45 - 59 mL/min/1.73m2 Moderately to severely decreased 30 - 44 mL/min/1.73m2 Severely decreased 15 - 29 mL/min/1.73m2 Kidney Failure < 15 mL/min/1.73m2 *Relative to young adult level Estimated glomerular filtration rate is determined by the 2020 CKD-EPI equation recommended by the National Kidney Foundation (A Unifying Approach to GFR Estimation: Recommendations of the NKF-ASK Task Force on Reassessing the Inclusion of Race in Diagnosing Kidney Disease, JASN 202). The CKD-EPI equation should not be used for patients with unstable renal function and has not been validated in children and those over 70. Current interpretive data was last reviewed 2021. Blood 09/11/2024 3:11 PM DIE CASTING MACHINE MAINTAINER 09/11/2024 3:30 PM DIE CASTING MACHINE MAINTAINER us Merlin Horton MD LAB BLOOD ORDERABLES F inal Result [facility] Department [place] [address] * (ABNORMAL) Differential, auto (09/11/2024 3:11 PM DIE CASTING MACHINE MAINTAINER) Neutrophil abs 6.8(H) 1.5 - 6.5 K/cumm Imm gran abs 0.1 0.0 - 0.1 K/cumm [facility] Lymphocyte abs 1.3 0.8 - 3.3 K/cumm [facility] Monocyte abs 0.8 0.2 - 0.8 K/cumm [facility] Eosinophil abs 0.1 0.0 - 0.5 K/cumm [facility] Basophil abs 0.0 0.0 - 0.1 K/cumm [facility] Neutrophil pct 74.2 % [facility] Comment: Interpretive Data Percent cell count reference ranges are not reported, since discordance with absolute values may lead to misinterpretation of CBC data. Current Interpretive Data was last revised on 2017. Imm gran pct 0.7 % [facility] Comment: Interpretive Data Percent cell count reference ranges are not reported, since discordance with absolute values may lead to misinterpretation of CBC data. Current Interpretive Data was last revised on 2017. Lymphocyte pct 14.2 % [facility] Comment: Interpretive Data Percent cell count reference ranges are not reported, since discordance with absolute values may lead to misinterpretation of CBC data. Current Interpretive Data was last revised on 2017. Monocyte pct 9.1 % [facility] Comment: Interpretive Data Percent cell count reference ranges are not reported, since discordance with absolute values may lead to misinterpretation of CBC data. Current Interpretive Data was last revised on 2017. Eosinophil pct 1.5 % [facility] Comment: Interpretive Data Percent cell count reference ranges are not reported, since discordance with absolute values may lead to misinterpretation of CBC data. Current Interpretive Data was last revised on 2017. Basophil pct 0.3 % [facility] Comment: Interpretive Data Percent cell count reference ranges are not reported, since discordance with absolute values may lead to misinterpretation of CBC data. Current Interpretive Data was last revised on 2017. Blood 09/11/2024 3:11 PM DIE CASTING MACHINE MAINTAINER 09/11/2024 3:27 PM DIE CASTING MACHINE MAINTAINER Merlin Horton MD LAB BLOOD ORDERABLES F inal Result Performing Organization Address [facility] [address]/[facility] Co de Phone Number [facility] Department [place] [address] * (ABNORMAL) CBC with auto differential (09/11/2024 3:11 PM DIE CASTING MACHINE MAINTAINER) [facility] WBC 9.2 3.8 - 9.9 K/cumm Hgb 12.7(L) 13.0 - 17.5 g/dL [facility] Hct 39.7 38.9 - 50.3 % [facility] Plt 225 150 - 400 K/cumm [facility] MPV 10.0 9.1 - 12.3 fL [facility] RBC 4.41 4.30 - 5.80 M/cumm [facility] MCV 90.0 81.3 - 96.4 fL [facility] MCH 28.8 27.1 - 33.3 pg [facility] MCHC 32.0(L) 32.3 - 35.7 g/dL [facility] RDW CV 14.7 11.1 - 14.9 % [facility] RDW SD 48.1 35.7 - 48.1 fL [facility] NRBC abs 0.00 0.00 - 0.01 K/cumm [facility] Blood 09/11/2024 3:11 PM DIE CASTING MACHINE MAINTAINER 09/11/2024 3:27 PM DIE CASTING MACHINE MAINTAINER Merlin Horton MD LAB BLOOD ORDERABLES F inal Result Performing Organization Address [facility] [address]/[facility] Co de Phone Number [facility] Department [place] [address] * (ABNORMAL) Renal function panel (09/11/2024 3:11 PM DIE CASTING MACHINE MAINTAINER) Sodium 138 135 - 145 mmol/L Potassium, pl 4.6 3.3 - 4.9 mmol/L [facility] Comment:Hemolyzed; Potassium value may be falsely elevated by as much as 0.3-0.5 mmol/L. Suggest redraw and reanalysis. Chloride 104 97 - 110 mmol/L [facility] CO2 25 22 - 32 mmol/L [facility] Anion gap 9 2 - 15 mmol/L [facility] BUN 21 6 - 25 mg/dL [facility] Creatinine 1.44(H) 0.80 - 1.30 mg/dL [facility] Glucose 96 70 - 199 mg/dL [facility] Comment: Interpretive Data Fasting glucose >/= 126 mg/dl is diagnostic for diabetes. Fasting is defined as no caloric intake for at least 8 hours. Fasting glucose between 100 mg/dl to 125 mg/dl is diagnostic of prediabetes. In a patient with classic symptoms of hyperglycemia or hyperglycemic crisis, a random glucose >/= 200 mg/dl is diagnostic for diabetes. In the absence of unequivocal hyperglycemia, results should be confirmed by repeat testing. The classification and Diagnosis of Diabetes Diabetes Care 2021; 46: S19-S40. Current interpretive data was last revised 2022. Calcium 8.9 8.5 - 10.3 mg/dL [facility] Phosphorus, pl 2.7 2.3 - 4.5 mg/dL [facility] Albumin 4.0 3.5 - 5.0 g/dL [facility] Blood 09/11/2024 3:11 PM DIE CASTING MACHINE MAINTAINER 09/11/2024 3:27 PM DIE CASTING MACHINE MAINTAINER us Merlin Horton MD LAB BLOOD ORDERABLES F inal Result [facility] Department [place] [address] * [employer] Results (08/07/2024 8:53 AM DIE CASTING MACHINE MAINTAINER) Provider Scanning AUDIOLOGY SERVICES ORDERABLES Final Result * REFLEXIVE URINE CULTURE (07/13/2024 10:36 AM DIE CASTING MACHINE MAINTAINER) Urine culture [facility] Comment:NO CULTURE INDICATED 07/13/2024 10:3 6 AM DIE CASTING MACHINE MAINTAINER 07/13/2024 10:36 AM DIE CASTING MACHINE MAINTAINER Narrative [facility] - 07/15/2024 4:10 PM DIE CASTING MACHINE MAINTAINER FASTING:NO FASTING: NO Tawanna Shafer MD LAB MICROBIOLOGY - GENERAL O RDERABLES Final Result [facility] [address] [place] [address] * (ABNORMAL) Urinalysis reflex to microscopic and culture Urine, clean voided (07/13/2024 10:36 AM DIE CASTING MACHINE MAINTAINER) Color, ur YELLOW YELLOW [facility] Appearance, ur CLEAR CLEAR [facility] Specific gravity 1.022 1.001 - 1.035 [facility] pH, ur 5.5 5.0 - 8.0 [facility] Glucose, ur 3+(A) NEGATIVE [facility] Bilirubin, ur NEGATIVE NEGATIVE [facility] Ketones, ur NEGATIVE NEGATIVE [facility] Blood, ur NEGATIVE NEGATIVE [facility] Protein, ur, quant NEGATIVE NEGATIVE [facility] Nitrites, ur NEGATIVE NEGATIVE [facility] Leukocyte esterase, ur NEGATIVE NEGATIVE [facility] WBC, ur NONE SEEN < OR = 5 /HPF [facility] RBC, ur NONE SEEN < OR = 2 /HPF [facility] Epithelial cells, squamous, ur NONE SEEN < OR = 5 /HPF [facility] Bacteria, ur, quant NONE SEEN NONE SEEN /HPF [facility] Hyaline cast NONE SEEN NONE SEEN /LPF [facility] Note [facility] Comment: This urine was analyzed for the presence of WBC, RBC, bacteria, casts, and other formed elements. Only those elements seen were reported. Urine, clean voided 07/13/2024 10:36 AM DIE CASTING MACHINE MAINTAINER 07/13/2024 10:36 AM DIE CASTING MACHINE MAINTAINER Narrative [facility] - 07/15/2024 4:10 PM DIE CASTING MACHINE MAINTAINER FASTING:NO FASTING: NO Tawanna Shafer MD LAB MICROBIOLOGY - GENERAL O RDERABLES Final Result Performing Organization Address [facility] [address]/[facility] Co de Phone Number [facility] [address] [place] [address] * Urea nitrogen, urine, random (07/13/2024 10:36 AM DIE CASTING MACHINE MAINTAINER) Urea nitrogen, ur 693 mg/dL [facility] Comment: No normals available for specimens other than 24 hour collections. Urine 07/13/2024 10:3 6 AM DIE CASTING MACHINE MAINTAINER 07/13/2024 10:36 AM DIE CASTING MACHINE MAINTAINER Narrative [facility] - 07/15/2024 4:10 PM DIE CASTING MACHINE MAINTAINER FASTING:NO FASTING: NO Tawanna Shafer MD LAB URINE ORDERABLES Final R esult Performing Organization Address [facility] [address]/[facility] Co de Phone Number [facility] [address] [place] [address] * Creatinine, urine, random (07/13/2024 10:36 AM DIE CASTING MACHINE MAINTAINER) Creatinine, ur 101 20 - 320 mg/dL [facility] Urine 07/13/2024 10:3 6 AM DIE CASTING MACHINE MAINTAINER 07/13/2024 10:36 AM DIE CASTING MACHINE MAINTAINER Narrative QUEST - 07/15/2024 4:10 PM DIE CASTING MACHINE MAINTAINER FASTING:NO FASTING: NO Tawanna Shafer MD LAB URINE ORDERABLES Final R esult Performing Organization Address [facility] [address]/[facility] Co de Phone Number [facility] [address] [place] [address] * (ABNORMAL) Renal function panel (07/13/2024 10:36 AM DIE CASTING MACHINE MAINTAINER) Glucose 100 65 - 139 mg/dL [employer]osa May Comment: Non-fasting reference interval BUN 27(H) 7 - 25 mg/dL Gen[facility] May Creatinine 1.61(H) 0.70 - 1.28 mg/dL Genaro May eGFR 45(L) > OR = 60 mL/min/1.7 3m2 Genaro May BUN/creat ratio 17 6 - 22 (calc) Genaro [facility] Sodium 139 135 - 146 mmol/L Genaro May Potassium, pl 4.3 3.5 - 5.3 mmol/L Genaro May Chloride 107 98 - 110 mmol/L Genaro [facility] May CO2 22 20 - 32 mmol/L Genaro [facility] May Calcium 9.2 8.6 - 10.3 mg/dL Genaro May Phosphorus, sr 3.3 2.1 - 4.3 mg/dL Genaro May Albumin 4.0 3.6 - 5.1 g/dL [facility] Blood 07/13/2024 10:3 6 AM DIE CASTING MACHINE MAINTAINER 07/13/2024 10:36 AM DIE CASTING MACHINE MAINTAINER Narrative QUEST - 07/15/2024 4:10 PM DIE CASTING MACHINE MAINTAINER FASTING:NO FASTING: NO us Tawanna Shafer MD LAB BLOOD ORDERABLES Final R esult Performing Organization Address City/State/[facility] Co de Phone Number GENARO [facility] [address] [place] [address] from Last 3 Months Insurance A[employer]NA SENIOR SUPPLEMENT MEDICARE AETNA SENIOR [facility] MEDICARE AETNA SENIOR SUPPLEMENT Advance Directives For more information, please contact: [phone] Documents on File Type Date Recorded Patient Fund Director Expl anation ADVANCE DIRECTIVE 01/13/2024 10:00 AM Jared r of Well Servicing Rig Operator-Medical Care Teams Medical Staff Director Relationship Specialty Start Date End Date Mayur Urena DO [address] [facility] [address] [place] [address] PCP - General Internal Medicine 07/22/24
--- OUTSIDE RECORDS SUMMARY | 2024-09-15 10:34 | XMS_ITS | Referral Summary ---
Author Organization [facility] Address [address] [place] [address] Care Team Providers Care Healthcare Administration Internship Name Role Phone Sebastian Pitts Primary Care Provider Source Comments [facility],non-owned Affiliates and Associated Physician Practices is amultiple site organization consisting of ambulatory clinics and hospital sitesin [place], [place], [place] and [place]. This disclosure is being madepursuant to the Care Everywhere program and may not contain all information available regarding this patient. Last updated 18.[facility] Allergies Active Allergy Reactions Criticality Noted Date Comments Lisinopril Other 06/11/2023 Lips swell Hvzcimxz-Mdnfzltoba-Qqvofthfz Rash Medium 2022 Medications * Be aware that medications may not be up to date on this document. Alwaysverify current medications with the patient. Medication Sig Dispensed Refills Start Date End Date Status carvedilol (Coreg) 3.125 MG tablet Take 1 (one) tablet by mouth 2 times daily with morning and evening meal 04/26/2023 Active Cholecalciferol (Vitamin D3) 25 MCG (1000 UT) Take 1 (one) capsule by mouth once daily Active citalopram (CeleXA) 20 MG tablet Take 1 (one) tablet by mouth once daily 05/15/2023 Active clopidogrel (plaVIX) 75 MG tablet Take 1 (one) tablet by mouth once daily 03/24/2023 Active dicyclomine (Bentyl) 20 MG tablet Take 1 (one) tablet by mouth once daily 05/29/2023 Active fexofenadine (Heena) 180 MG tablet Take 1 (one) tablet by mouth once daily Active gabapentin (Neurontin) 300 MG capsule TAKE 1 CAPSULE BY MOUTH EVERY DAY IN THE EVENING 04/26/2023 Active irbesartan (Avapro) 75 MG tablet Take 1 (one) tablet by mouth 04/23/2023 Active leflunomide (Arava) 20 MG tablet Take 1 (one) tablet by mouth once daily 01/24/2023 Active pantoprazole EC (Protonix) 20 MG tablet Take 1 (one) tablet by mouth once daily 12/24/2022 Active rosuvastatin (Crestor) 40 MG tablet Take 1 (one) tablet by mouth once daily 01/24/2023 Active sildenafil (Viagra) 100 MG tablet TAKE 1 TABLET BY MOUTH EVERY DAY NEEDED FOR ERECTILE DYSFUNCTION 04/03/2023 Active traZODone (Desyrel) 50 MG tablet Take 1 (one) tablet by mouth 04/16/2023 Active Social History Tobacco Use Types Packs/Day Years Used Date Smoking Tobacco: Never Smokeless Tobacco: Never Tobacco Cessation:Counseling Given: Not Answered Sex and Gender Information Value Date Recorded Sex Assigned at Not on file Gender Identity Not on file Sexual Orientation Not on file Plan of Treatment Not on file Care Teams Healthcare Administration Internship Relationship Specialty Start Date End Date Sebastian Pitts DO [address] [facility] [facility] [address] [place] [address] PCP - General 08/26/12
--- OUTSIDE RECORDS SUMMARY | 2024-09-15 10:34 | XMS_ITS | Referral Summary ---
Author Organization [facility] [address] Address [address] [place] [address] Care Team Providers Care Milling Machinist Name Role Phone Mayur Urena DO Primary Care Provider [phone] Encounters Date Type Department Care Team Description 09/11/2024 4:35 PM CHILD CARE COORDINATOR Lab [facility] ([facility]) [address] [place] [id number] SARAI (acute kidney injury) ([facility]) 09/11/2024 2:15 PM CHILD CARE COORDINATOR Office Visit [facility] [address] [place] [address] Medicine 5th [place] [address] [place] [address] Merlin Horton MD Lower urinary tract symptoms (LUTS) (Primary Dx); Elevated serum creatinine; Rheumatoid arthritis involving multiple sites with positive rheumatoid factor ([facility]/HCC) (HCC); Ischemic cardiomyopathy 09/07/2024 Orders Only [facility] [address] [facility] [place] [address] Tabby Sweeney RMA Foot pain, left (Primary Dx) 08/07/2024 10:40 AM CHILD CARE COORDINATOR Office Visit [facility] Advanced [facility] ([facility]) - [facility] [address] [facility] [address]th [place] [address] [place] [address] Cortez Go MD Bilateral impacted cerumen (Primary Dx) 08/07/2024 9:30 AM CHILD CARE COORDINATOR Procedure visit [facility] Otolaryng[facility] [address] [facility] [address]th [place] [address] [place] [phone] Alecia Grewal Au.D. 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) (Primary Dx); History of ST elevation myocardial infarction; Status post angioplasty with stent; S/P CABG x 3; Ischemic cardiomyopathy; PAD (peripheral artery disease) (HCC) 07/17/2024 Telephone [facility] [facility] [address] [place] [address] [place] [address] Tawanna Shafer MD from Last 3 Months Allergies Active Allergy Reactions Criticality Noted Date Comments Bacitracin Rash Medium Colistimethate Sodium Rash Medium Gramicidin D Rash Medium Lisinopril Angioedema,Other (See comments) High 06/11/2023 Reaction: lips swelled, , Reaction: FACIAL SWELLING, , Reaction: Other, Lips swell Neomycin Rash Medium Xwlqgbxp-Wmnonpwugj-Qqrps yxin Rash,Other (See comments) Medium 07/25/2011 Reaction: [...] 1 tablet (20 mg total) by mouth director process before breakfast 05/29/20 23 Active traZODone (DESYREL) [...] 12 hr tabletIndications: 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) Take [...] ng multiple sites with positive rheumatoid factor ([facility]) 08/06/2009 Encounter for preventive health examination 07/06 Resolved Problems Problem Noted Date Diagnosed Date Resolved Date Knee pain 03/18/2015 03/07/2018 Immunizations Name Administration Dates Next Due Influenza, Split 05/05/2018 Influenza, Trivalent, Cell C ulture-based MDCK, Preservative Free, Antibiotic Free, Intramuscular 07/16/2013 Influenza, Trivalent, IM (MDV) 07/24/2012 Influenza, Trivalent, Preservative Free, Intramu scular 08/25/2009 PPD TEST 01/21/2012 Pneumococcal Conjugate PCV 13 05/02/2020 Pneumococcal Conjugate Pcv20 12/24/2022 Social History Tobacco Use Types Packs/Day Years [...] on file Legal Sex Male 3:13 AM CHILD CARE COORDINATOR Gender Identity Male 03/26/2018 8:52 AM CDT Sexual Orientation Straight 07/05/2020 1: 06 PM CHILD CARE COORDINATOR Last Filed Vital Signs Vital Sign Reading Time Taken Comments Blood Pressure 100/67 09/11/2024 1:59 PM CHILD CARE COORDINATOR Pulse 75 09/11/2024 1:59 PM CHILD CARE COORDINATOR Temperature 36.7 C (98.1 F) 09/11/2024 1:59 PM CHILD CARE COORDINATOR Respiratory Rate 16 09/11/2024 1:59 PM CHILD CARE COORDINATOR Oxygen Saturation 95% 09/11/2024 1:59 PM CHILD CARE COORDINATOR Inhaled Oxygen Concentration - - Weight 73.2 kg (161 lb 6.4 oz) 09/11/2024 1:59 P M CHILD CARE COORDINATOR Height 177.8 cm (5' 10 ) 07/22/2024 1:04 PM CHILD CARE COORDINATOR Body Mass Index 23.16 07/22/2024 1:04 PM CHILD CARE COORDINATOR Plan of Treatment Not on file Procedures Procedure Name Priority Date/Time Associated Diagnosis Comments EGFR Routine 09/11/2024 3:11 PM CHILD CARE COORDINATOR SARAI (acute kidney injury) (HCC) DIFFERENTIAL AUTO Routine 09/11/2024 3:1 1 PM CHILD CARE COORDINATOR SARAI (acute kidney injury) (HCC) RENAL FUNCTION PANEL Routine 09/11/2024 3:11 PM CHILD CARE COORDINATOR SARAI (acute kidney injury) (HCC) CBC WITH AUTO DIFFERENTIAL Routine 09/11/2024 3:11 PM CHILD CARE COORDINATOR SARAI (acute kidney injury) (HCC) AUDBASE RESULTS 08/07/2024 8:53 AM CHILD CARE COORDINATOR CREATININE, URINE, RANDOM Routine 07/13/2024 10:36 AM CHILD CARE COORDINATOR Rheumatoid arthritis involving multiple sites with positive rheumatoid factor (CMS/HCC) (HCC) High risk medication use Elevated serum creatinine UREA NITROGEN, URINE, RANDOM Routine 07/13/2024 10:36 AM CHILD CARE COORDINATOR Rheumatoid arthritis involving multiple sites with positive rheumatoid factor (CMS/HCC) (HCC) High risk medication use Elevated serum creatinine RENAL FUNCTION PANEL Routine 07/13/2024 10:36 AM CHILD CARE COORDINATOR Rheumatoid arthritis involving multiple sites with positive rheumatoid factor (CMS/HCC) (HCC) High risk medication use Elevated serum creatinine REFLEXIVE URINE CULTURE Routine 07/13/2024 10:36 AM CHILD CARE COORDINATOR URINALYSIS AND REFLEX TO MICROSCOPIC AND CULTURE Routine 07/13/2024 10:36 AM CHILD CARE COORDINATOR Rheumatoid arthritis involving multiple sites with positive rheumatoid factor (CMS/HCC) (HCC) High risk medication use Elevated serum creatinine from Last 3 Months Results * (ABNORMAL) eGFR (09/11/2024 3:11 PM CHILD CARE COORDINATOR) eGFR 51(L) >=60 mL/min/1. 73 m2 Comment: [...] of Race in Diagnosing Kidney Disease, JASN 2020). The CKD-EPI equation should not be used for patients with unstable renal function and has not been validated in children and those over 70. Current interpretive data was last reviewed 2021. Blood 09/11/2024 3:11 PM CHILD CARE COORDINATOR 09/11/2024 3:30 PM CHILD CARE COORDINATOR us Merlin Horton MD LAB BLOOD ORDERABLES F inal Result [facility] [place] [address] * (ABNORMAL) Differential, auto (09/11/2024 3:11 PM CHILD CARE COORDINATOR) Neutrophil abs 6.8(H) 1.5 - 6.5 K/cumm Imm gran abs 0.1 0.0 - 0.1 K/cumm [facility] Lymphocyte abs 1.3 0.8 - 3.3 K/cumm [facility] Monocyte abs 0.8 0.2 - 0.8 K/cumm [facility] Eosinophil abs 0.1 0.0 - 0.5 K/cumm [facility] Basophil abs 0.0 0.0 - 0.1 K/cumm [facility] Neutrophil pct 74.2 % [facility] Comment: Interpretive Data Percent cell count reference ranges are not reported, since discordance with absolute values may lead to misinterpretation of CBC data. Current Interpretive Data was last revised on 2017. Imm gran pct 0.7 % [facility] Comment: Interpretive Data Percent cell count reference ranges are not reported, since discordance with absolute values may lead to misinterpretation of CBC data. Current Interpretive Data was last revised on 2017. Lymphocyte pct 14.2 % [facility] Comment: Interpretive Data Percent cell count reference ranges are not reported, since discordance with absolute values may lead to misinterpretation of CBC data. Current Interpretive Data was last revised on 2017. Monocyte pct 9.1 % [facility] Comment: Interpretive Data Percent cell count reference ranges are not reported, since discordance with absolute values may lead to misinterpretation of CBC data. Current Interpretive Data was last revised on 2017. Eosinophil pct 1.5 % [facility] Comment: Interpretive Data Percent cell count reference ranges are not reported, since discordance with absolute values may lead to misinterpretation of CBC data. Current Interpretive Data was last revised on 2017. Basophil pct 0.3 % [facility] Comment: Interpretive Data Percent cell count reference ranges are not reported, since discordance with absolute values may lead to misinterpretation of CBC data. Current Interpretive Data was last revised on 2017. Blood 09/11/2024 3:11 PM CHILD CARE COORDINATOR 09/11/2024 3:27 PM CHILD CARE COORDINATOR us Merlin Horton MD LAB BLOOD ORDERABLES F inal Result [facility] [place] [address] * (ABNORMAL) CBC with auto differential (09/11/2024 3:11 PM CHILD CARE COORDINATOR) [facility] WBC 9.2 3.8 - 9.9 K/cumm Hgb 12.7(L) 13.0 - 17.5 g/dL [facility] Hct 39.7 38.9 - 50.3 % [facility] Plt 225 150 - 400 K/cumm [facility] MPV 10.0 9.1 - 12.3 fL [facility] RBC 4.41 4.30 - 5.80 M/cumm [facility] MCV 90.0 81.3 - 96.4 fL [facility] MCH 28.8 27.1 - 33.3 pg [facility] MCHC 32.0(L) 32.3 - 35.7 g/dL [facility] RDW CV 14.7 11.1 - 14.9 % [facility] RDW SD 48.1 35.7 - 48.1 fL [facility] NRBC abs 0.00 0.00 - 0.01 K/cumm [facility] Blood 09/11/2024 3:11 PM CHILD CARE COORDINATOR 09/11/2024 3:27 PM CHILD CARE COORDINATOR Merlin Horton MD LAB BLOOD ORDERABLES F inal Result [facility] [place] [address] * (ABNORMAL) Renal function panel (09/11/2024 3:11 PM CHILD CARE COORDINATOR) Sodium 138 135 - 145 mmol/L Potassium, pl 4.6 3.3 - 4.9 mmol/L [facility] Comment:Hemolyzed; Potassium value may be falsely elevated by as much as 0.3-0.5 mmol/L. Suggest redraw and reanalysis. Chloride 104 97 - 110 mmol/L [facility] CO2 25 22 - 32 mmol/L [facility] Anion gap 9 2 - 15 mmol/L [facility] BUN 21 6 - 25 mg/dL [facility] Creatinine 1.44(H) 0.80 - 1.30 mg/dL [facility] Glucose 96 70 - 199 mg/dL [facility] Comment: Interpretive Data Fasting glucose >/= [...] classification and Diagnosis of Diabetes Diabetes Care 202; 46: S19-S40. Current interpretive data was last revised 2022. Calcium 8.9 8.5 - 10.3 mg/dL [facility] Phosphorus, pl 2.7 2.3 - 4.5 mg/dL [facility] Albumin 4.0 3.5 - 5.0 g/dL [facility] Blood 09/11/2024 3:11 PM CHILD CARE COORDINATOR 09/11/2024 3:27 PM CHILD CARE COORDINATOR Merlin Horton MD LAB BLOOD ORDERABLES F inal Result Performing Organization Address City/[facility] Co de Phone Number MAYRA B[facility] [place] [address] * [employer] Results (08/07/2024 8:53 AM CHILD CARE COORDINATOR) us Provider Scanning AUDIOLOGY SERVICES ORDERABLES Final Result * REFLEXIVE URINE CULTURE (07/13/2024 10:36 AM CHILD CARE COORDINATOR) [facility]rine culture [facility] Comment:NO CULTURE INDICATED 07/13/2024 10:3 6 AM CHILD CARE COORDINATOR 07/13/2024 10:36 AM CHILD CARE COORDINATOR Narrative [facility]ST - 07/15/2024 4:10 PM CHILD CARE COORDINATOR FASTING:NO FASTING: NO Tawanna Shafer MD LAB MICROBIOLOGY - GENERAL O RDERABLES Final Result Performing Organization Address [facility] Co de Phone Number QUEST [facility] [address] [place] [address] * (ABNORMAL) Urinalysis reflex to microscopic and culture Urine, clean voided (07/13/2024 10:36 AM CHILD CARE COORDINATOR) Color, ur YELLOW YELLOW [facility] [...] quant NONE SEEN NONE SEEN /HPF [facility] Hyaline cast NONE SEEN NONE SEEN /LPF [facility] Note [facility] Comment: This urine was analyzed for the presence of WBC, RBC, bacteria, casts, and other formed elements. Only those elements seen were reported. Urine, clean voided 07/13/2024 10:36 AM CHILD CARE COORDINATOR 07/13/2024 10:36 AM CHILD CARE COORDINATOR Narrative QUEST - 07/15/2024 4:10 PM CHILD CARE COORDINATOR FASTING:NO FASTING: NO Tawanna Shafer MD LAB MICROBIOLOGY - GENERAL O RDERABLES Final Result Performing Organization Address City/[facility]/ZIP Co de Phone Number [employer] [address] [place] [address] * Urea nitrogen, urine, random (07/13/2024 10:36 AM CHILD CARE COORDINATOR) Urea nitrogen, ur 693 mg/dL [employer] [facility] Comment: No normals available for specimens other than 24 hour collections. Urine 07/13/2024 10:3 6 AM CHILD CARE COORDINATOR 07/13/2024 10:36 AM CHILD CARE COORDINATOR Narrative QUEST - 07/15/2024 4:10 PM CHILD CARE COORDINATOR FASTING:NO FASTING: NO us Tawanna Shafer MD LAB URINE ORDERABLES Final R esult Performing Organization Address City/[facility]/ZIP Co de Phone Number [employer] [address] [place] [address] * Creatinine, urine, random (07/13/2024 10:36 AM CHILD CARE COORDINATOR) Creatinine, ur 101 20 - 320 mg/dL [employer] [facility] Urine 07/13/2024 10:3 6 AM CHILD CARE COORDINATOR 07/13/2024 10:36 AM CHILD CARE COORDINATOR Narrative QUEST - 07/15/2024 4:10 PM CHILD CARE COORDINATOR FASTING:NO FASTING: NO Tawanna Shafer MD LAB URINE ORDERABLES Final R esult GENARO [facility] [address] [place] [address] * (ABNORMAL) Renal function panel (07/13/2024 10:36 AM CHILD CARE COORDINATOR) Glucose 100 65 - 139 mg/dL [facility] Comment: Non-fasting reference interval BUN 27(H) 7 - 25 mg/dL [facility] Creatinine 1.61(H) 0.70 - 1.28 mg/dL [facility] eGFR 45(L) > OR = 60 mL/min/1.7 3m2 [facility] BUN/creat ratio 17 6 - 22 (calc) [employer] Sodium 139 135 - 146 mmol/L [facility] Potassium, pl 4.3 3.5 - 5.3 mmol/L [facility] Chloride 107 98 - 110 mmol/L [facility] CO2 22 20 - 32 mmol/L [employer] [facility] Calcium 9.2 8.6 - 10.3 mg/dL [facility] Phosphorus, sr 3.3 2.1 - 4.3 mg/dL [facility] Albumin 4.0 3.6 - 5.1 g/dL [employer] Blood 07/13/2024 10:3 6 AM CHILD CARE COORDINATOR 07/13/2024 10:36 AM CHILD CARE COORDINATOR Narrative QUEST - 07/15/2024 4:10 PM CHILD CARE COORDINATOR FASTING:NO FASTING: NO us Tawanna Shafer MD LAB BLOOD ORDERABLES Final R esult GENARO [facility] [address] [place] [address] from Last 3 Months Insurance [employer] SENIOR SUPPLEMENT MEDICARE MEDICARE AETNA SENIOR [facility] MEDICARE AETNA SENIOR SUPPLEMENT Advance Directives For more information, please contact: [phone] Documents on File Type Date Recorded Patient Engraver Letter Expl anation ADVANCE DIRECTIVE 01/13/2024 10:00 AM Jared r of Market Survey Representative-Medical Care Teams Milling Machinist Relationship Specialty Start Date End Date Mayur Urena DO [address] [facility] [address] [place], [place] [id number] PCP - General Internal Medicine 07/22/24
--- OUTSIDE RECORDS SUMMARY | 2024-09-15 10:34 | XMS_ITS | Patient Health Summary ---
Author Organization [facility] Address [address] [place] [address] Care Team Providers Care Director Script Name Role Phone Sebastian Pitts Primary Care Provider [phone] Note from [facility]non-owned Affiliates and Associated Physician Practices is amultiple site organization consisting of ambulatory clinics and hospital sitesin [place], [place], [place] and [place]. This disclosure is being madepursuant to the Care Everywhere program and may not contain all information available regarding this patient. Last updated 18.[facility] Allergies * Lisinopril(Other) * Bnxuiveg-Evauoeyiuv-Wkuyevdvt(Rash) -Medium Criticality Medications * Be aware that medications may not be up to date on this document. Alwaysverify current medications with the patient. * carvedilol (Coreg) 3.125 MG tablet(Started 04/26/2023) Take 1 (one) tablet by mouth 2 times daily with morning and evening meal * Cholecalciferol (Vitamin D3) 25 MCG (1000 UT) Take 1 (one) capsule by mouth once daily * citalopram (CeleXA) 20 MG tablet(Started 05/15/2023) Take 1 (one) tablet by mouth once daily * clopidogrel (plaVIX) 75 MG tablet(Started 03/24/2023) Take 1 (one) tablet by mouth once daily * dicyclomine (Bentyl) 20 MG tablet(Started 05/29/2023) Take 1 (one) tablet by mouth once daily * fexofenadine (Heena) 180 MG tablet Take 1 (one) tablet by mouth once daily * gabapentin (Neurontin) 300 MG capsule(Started 04/26/2023) TAKE 1 CAPSULE BY MOUTH EVERY DAY IN THE EVENING * irbesartan (Avapro) 75 MG tablet(Started 04/23/2023) Take 1 (one) tablet by mouth * leflunomide (Arava) 20 MG tablet(Started 01/24/2023) Take 1 (one) tablet by mouth once daily * pantoprazole EC (Protonix) 20 MG tablet(Started 12/24/2022) Take 1 (one) tablet by mouth once daily * rosuvastatin (Crestor) 40 MG tablet(Started 01/24/2023) Take 1 (one) tablet by mouth once daily * sildenafil (Viagra) 100 MG tablet(Started 04/03/2023) TAKE 1 TABLET BY MOUTH EVERY DAY NEEDED FOR ERECTILE DYSFUNCTION * traZODone (Desyrel) 50 MG tablet(Started 04/16/2023) Take 1 (one) tablet by mouth Social History Tobacco Use Types Packs/Day Years Used Date Smoking Tobacco: Never Smokeless Tobacco: Never Tobacco Cessation:Counseling Given: Not Answered Sex and Gender Information Value Date Recorded Sex Assigned at Not on file Gender Identity Not on file Sexual Orientation Not on file Procedures * CULTURE AEROBIC(Performed 06/21/2023) Performed for Surgery follow-up examination * ID [facility] MOHS MG TQ H/N/H/F/G 1ST STAG 5 BLOC(Performed 06/11/2023) 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 * ID [facility] MOHS MG TQ H/N/H/F/G EA ADDL STAG(Performed 06/11/2023) 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 * DERMATOPATHOLOGY(Performed 05/15/2023) * DERMATOPATHOLOGY(Performed 11/08/2021) * DERMATOPATHOLOGY(Performed 11/15/2020) * DERMATOPATHOLOGY(Performed 03/15/2020) * DERMATOPATHOLOGY(Performed 02/04/2019) * DERMATOPATHOLOGY(Performed 08/14/2017) * DERMATOPATHOLOGY(Performed 02/28/2017) * DERMATOPATHOLOGY(Performed 06/08/2014) * DERMATOPATHOLOGY(Performed 08/30/2010) Results * (ABNORMAL) CULTURE AEROBIC (06/21/2023 8:04 AM WOOD CRAFTSMAN) Culture (A) [facility] Comment: CULTURE, AEROBIC BACTERIA Micro Number: [id number] Test Status: Final Specimen Source: Skin Specimen Quality: Adequate Result: Scant growth of Klebsiella oxytoca Scant growth of Yeast Isolated. Please contact the laboratory within 3 days if further identification is desired. COMMENT: Skin marko also present. K.oxytoca INT MAUREEN AMOX/CLAVULANATE S <=2 AMP/SULBACTAM S 8 CEFAZOLIN R 8 1 CEFEPIME S <=0.12 CEFTAZIDIME S <=1 CEFTRIAXONE S <=0.25 CIPROFLOXACIN S <=0.06 GENTAMICIN S <=1 IMIPENEM S <=0.25 LEVOFLOXACIN S <=0.12 MEROPENEM S <=0.25 PIP/TAZOBACTAM S <=4 TRIMETHOPRIM/SULFA S <=20 S=Susceptible I=Intermediate R=Resistant * = Not Tested NR = Not Reported NN = See Therapy Comments THERAPY COMMENTS Note 1: For infections other than uncomplicated UTI caused by E. coli, K. pneumoniae or P. mirabilis: Cefazolin is resistant if MAUREEN > or = 8 mcg/mL. (Distinguishing susceptible versus intermediate for isolates with MAUREEN < or = 4 mcg/mL requires additional testing.) Test Performed at: [facility] [id number] SHELBY DSOUZA MD Microbiology TISSUE SPECIMEN FROM SKIN / Unknown 06/21/2023 8:04 AM WOOD CRAFTSMAN 06/22/2023 3:24 AM WOOD CRAFTSMAN Vance Gomez MD LAB - MICROBIOLOGY O RDERABLES [address] [address] * ID [facility] MOHS MG TQ H/N/H/F/G EA ADDL STAG, ID [facility]MS[facility] MOHS MG TQ H/N/H/F/G 1ST STAG 5 BLOC (06/11/2023 11:14 AM WOOD CRAFTSMAN) Narrative Vance Gomez MD - 06/11/2023 11:14 AM WOOD CRAFTSMAN Vance Gomez MD 06/11/2023 11:34 AM Mohs Micrographic Surgery Operative Note Procedure: Mohs micrographic surgery Date of service: 06/11/2023 Location: right lower lg lip 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 No other physician was involved in the cancer removal or pathology interpretation. Assistants: N/A Indications for Mohs Surgery Removal of the patient's tumor is complicated by the following clinical features: Clinical area critical for tissue conservation (Area H: central face, eyelids, eyebrows, nose, lips, chin, ear, periauricular, evangelical, genitalia, hands, feet, ankles, nail units and areola). Based on my medical judgement, Mohs surgery is the most appropriate treatment for this cancer compared to other treatments. I discussed alternative treatments to Mohs surgery and specifically discussed the risks and benefits of curettage, excision with permanent sections, and foregoing treatment. The rationale for Mohs was explained to the patient and consent was obtained. The risks, benefits and alternatives to therapy were discussed in detail. Specifically, the risks of infection, scarring, bleeding, prolonged wound healing, incomplete removal, allergy to anesthesia, nerve injury and recurrence were addressed. Prior to the procedure, the treatment site was clearly identified and confirmed by the patient. All components of [place] Protocol/PAUSE Rule completed. STAGE I: The patient was placed on the operating table. The cancer was identified and outlined. The entire surgical field was prepped with hibiclens. The surgical site was anesthetized using Lidocaine 1% with epinephrine 1:100,000 buffered with sodium bicarbonate 8.4% in a 1:10 ratio.The area of clinically apparent tumor was debulked with a 2 mm curette. The layer of tissue was then surgically excised using a #15 blade and was then transferred onto a specimen sheet maintaining the orientation of the specimen. Hemostasis was obtained using monopolar electrodesiccation. The wound site was then covered with a dressing while the tissue samples were processed for examination. The specimen was oriented, mapped and divided. Each section was then inked and processed in the Mohs lab using the Mohs protocol and submitted for frozen section. The histopathologic sections were reviewed by the surgeon in conjunction with the reference map. Total blocks: 1 Total slides: 3 Frozen sections were examined by the surgeon and revealed residual tumor. Tumor was indicated in red on the reference map. Cell morphology: N/A. No tumor seen. Pathological pattern: N/A. No tumor seen. Depth of invasion: N/A. No tumor seen. Scar tissue: Not Present Perineural invasion: Not Present Inflammation obscuring possible tumor presence: Not Present STAGE II: The patient was prepped in the same fashion as the first stage. Using a similar technique to that described above, a thin layer of tissue was removed from all areas where tumor was visible on the previous stage. The tissue was again oriented, mapped, dyed, and processed as above. Histopathologic sections were reviewed in conjunction with the reference map. Total blocks: 1 Total slides: 3 Frozen sections were examined by the surgeon and revealed residual tumor. Tumor was indicated in red on the reference map. No additional histologic findings appreciated. STAGE III: The patient was prepped in the same fashion as the first stage. Using a similar technique to that described above, a thin layer of tissue was removed from all areas where tumor was visible on the previous stage. The tissue was again oriented, mapped, dyed, and processed as above. Histopathologic sections were reviewed in conjunction with the reference map. Total blocks: 1 Total slides: 2 Frozen sections were examined by the surgeon and revealed residual tumor. Tumor was indicated in red on the reference map. No additional histologic findings appreciated. STAGE IV: The patient was prepped in the same fashion as the first stage. Using a similar technique to that described above, a thin layer of tissue was removed from all areas where tumor was visible on the previous stage. The tissue was again oriented, mapped, dyed, and processed as above. Histopathologic sections were reviewed in conjunction with the reference map. Total blocks: 1 Total slides: 2 Frozen sections were examined by the surgeon and revealed: No additional tumor. Histology: No malignant cells seen in the sections examined. No additional histologic findings appreciated. [facility] CLIA # [id number] Mohs Senior Warehouse Clerk: Susan oMrataya MD REPAIR: Secondary Intention The patient is status-post Mohs micrographic surgery. The surgical site was examined with attention to normal anatomic and functional relationships. After consideration and discussion of multiple options with the patient, it was determined that healing by secondary intention would offer the best chance for preservation/temple of all normal anatomic and functional relationships. The patient verbalized understanding and agreed with this plan. It is also understood that should second intention healing be sub-optimal, additional procedures such as scar revision, steroid injection or dermabrasion may be recommended. The open wound was cleaned and a thick layer of vaseline was applied. A pressure dressing consisting of non-adherent gauze, gauze, and hypafix was applied. Wound care was discussed with the patient both orally and in writing. The patient stated understanding and agreement with the course of care. No postoperative medications were prescribed. The patient will follow up in 4 week(s) for a wound check. Dr. Gomez performed the entire surgery, and documentation used to initiate this operative report. I entered the information in our [employer] DocFlowsheet with the information provided by Dr. Gomez on his handwritten, paper format, surgical worksheet, which was then used to initiate the create of this note. Dr. Gomez then reviewed and edited the note as needed to complete the note. Valeri Regalado LPN I have reviewed the note, edited it as necessary and performed the entire procedure. Vance Gomez MD Ribbon Hanking Machine Operator 06/11/2023 Vance Gomez MD PROCEDURE/MINOR SURG ICAL ORDERABLES * DERMATOPATHOLOGY (05/15/2023 12:00 AM CDT) Only the most recent of9 resultswithin the time period is included. Case Report Dermatopathology Report Case: [id number] Authorizing Provider: Coy Keating MD Collected: 05/15/2023 12:00 AM Ordering Location: [facility] DermPath Lab Received: 05/17/2023 04:27 PM Pathologist: Addis Herrera MD Specimen: Skin, right lower verm lip 3 4:18 PM CDT DERMATOPATHOLOGY LABORATORY Final Diagnosis Specimen A. 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 The specimen consists of a punch biopsy measuring 5x5x3 mm. Jar 0. 3 4:18 PM CDT DERMATOPATHOLOGY LABORATORY Microscopic Description Specimen A. SKIN, right lower verm lip: The epidermis shows parakeratosis, full thickness disorderly maturation of keratinocytes, mitoses at different levels, and dyskeratotic cells. 3 4:18 PM CDT DERMATOPATHOLOGY LABORATORY Disclaimer An external and internal positive and negative controls are appropriate for the histochemical, immunohistochemical and immunofluorescence stain(s) in this case (if any), except where stated explicitly. The performance characteristics of the stain(s) cited in this report were developed and its performance characteristic determined by the Dermatopathology Laboratory at [facility], directed by Dr. Tio Antonio. These tests need not be, and therefore are not, approved by the [place] Food and Drug Administration. The tests are used for clinical purposes. Billing Codes Specimen Charges Stain Charges 93549 1 3 4:18 PM CDT DERMATOPATHOLOGY LABORATORY Embedded Images 3 4:18 PM CDT DERMATOPATHOLOGY LABORATORY Pathology/Cytolog y TISSUE SPECIMEN FROM SKIN / Unknown 05/15/2023 05/17/2023 4:27 PM CDT Coy Keating MD LAB - PATHOLOGY/CYTO LOGY ORDERABLES DERMATOPATHOLOGY LABORATORY [facility] - Department of Dermatology [facility] [address] [place] [address], [address] [phone] Care Teams Director Script Relationship Specialty Start Date End Date Sebastian Pitts DO [address] [facility] [address] [address] PCP - General 08/26/12
--- OUTSIDE RECORDS SUMMARY | 2024-09-15 10:34 | XMS_ITS | Encounter Summary ---
Author Organization [facility] Address [address] [facility] [place] [address] Care Team Providers Care Classroom Coordinator Name Role Phone Sebastian Pitts DO Primary Care Provider [phone] Encounter Details Date Type Department Care Team (Late st Contact Info) Description 05/17/2023 Lab Requisition [facility] - DermPath Lab [address] [place] [phone] Coy Keating MD [address] [place] [address] Social History Tobacco Use Types Packs/Day Years Used Date Smoking Tobacco: Never Assessed Sex and Gender Information Value Date Recorded Sex Assigned at Not on file Gender Identity Not on file Sexual Orientation Not on file documented as of this encounter Plan of Treatment Not on file documented as of this encounter Procedures Procedure Name Priority Date/Time Associated Diagnosis Comments DERMATOPATHOLOGY Routine 05/15/2023 12:0 0 AM CDT documented in this encounter Results * DERMATOPATHOLOGY (05/15/2023 12:00 AM CDT) Case Report Dermatopathology Report Case: [id number] Authorizing Provider: Coy Keating MD Collected: 05/15/2023 12:00 AM Ordering Location: [facility] DermPath Lab Received: 05/17/2023 04:27 PM Pathologist: Addis Herrera MD Specimen: Skin, right lower verm lip 4:18 PM CDT DERMATOPATHOLOGY LABORATORY Final Diagnosis Specimen A. 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 The specimen consists of a punch biopsy measuring 5x5x3 mm. Jar 0. 4:18 PM CDT DERMATOPATHOLOGY LABORATORY Microscopic Description Specimen A. SKIN, right lower verm lip: The epidermis shows parakeratosis, full thickness disorderly maturation of keratinocytes, mitoses at different levels, and dyskeratotic cells. 4:18 PM CDT DERMATOPATHOLOGY LABORATORY Disclaimer An external and internal positive and negative controls are appropriate for the histochemical, immunohistochemical and immunofluorescence stain(s) in this case (if any), except where stated explicitly. The performance characteristics of the stain(s) cited in this report were developed and its performance characteristic determined by the Dermatopathology Laboratory at [facility], directed by Dr. Tio Antonio. These tests need not be, and therefore are not, approved by the [place] Food and Drug Administration. The tests are used for clinical purposes. Billing Codes Specimen Charges Stain Charges 62426 1 4:18 PM CDT DERMATOPATHOLOGY LABORATORY Embedded Images 4:18 PM CDT DERMATOPATHOLOGY LABORATORY Pathology/Cytolog y TISSUE SPECIMEN FROM SKIN / Unknown 05/15/2023 05/17/2023 4:27 PM CDT Coy Keating MD LAB - PATHOLOGY/CYTO LOGY ORDERABLES DERMATOPATHOLOGY LABORATORY [facility] - Department of Dermatology [address], [address] [phone] documented in this encounter Visit Diagnoses Not on filedocumented in this encounter Care Teams Classroom Coordinator Relationship Specialty Start Date End Date Sebastian Pitts DO [address] [facility] [address] [place] [address] PCP - General 08/26/12 documented as of this encounter
--- OUTSIDE RECORDS SUMMARY | 2024-09-15 10:34 | XMS_ITS | Clinical Summary ---
Author Organization [facility] Address [address] [facility] [place] [address] Care Team Providers Care Product Introduction Manager Name Role Phone Sebastian Pitts Primary Care Provider Source Comments [facility],non-owned Affiliates and Associated Physician Practices is amultiple site organization consisting of ambulatory clinics and hospital sitesin [place], [place], [place] and [place]. This disclosure is being madepursuant to the Care Everywhere program and may not contain all information available regarding this patient. Last updated 18.[facility] Allergies Active Allergy Reactions Criticality Noted Date Comments Lisinopril Other 06/11/2023 Lips swell Tagcdotx-Qdbhswpnsk-Rafywljrv Rash Medium 2022 Medications * Be aware [...] Orientation Not on file Plan of Treatment Health Maintenance Due Date Last Done Comments COLOGUARD (AGES 45-75) - COLON CA SCREENING 1950 COLON MONITORING 1950 COLONOSCOPY - COLON CA SCREENING 1950 CT COLONOGRAPHY - COLON CA SCREENING 1950 Colorectal Cancer Screening 1950 FIT - COLON CA SCREENING 1950 FLEX SIG - COLON CA SCREENING 1950 MEDICARE AWV 12 MONTHS 1950 HEPATITIS C SCREENING 04/16/1968 DTAP/TDAP/TD VACCINES (1 - Tdap) 1969 PNEUMOCOCCAL VACCINE 50+ (1 of 1 - PCV) 2000 ZOSTER VACCINE (1 of 2) 2000 COVID-19 VACCINE (1 - season) 2024 INFLUENZA VACCINE (#1) 2024 8, 07/16/2013, 07/24/2012, Additional history exists DEPRESSION SCREENING 08/05/2024 Respiratory Syncytial Virus (RSV) Vaccine Pt: or over 60 yrs (1 - 1-dose 75+ series) 2025 HEPATITIS B VACCINE Aged Out No longe r eligible based on patient's age to complete this topic HIB VACCINE Aged Out No longer eligi ble based on patient's age to complete this topic HPV VACCINE Aged Out No longer eligi ble based on patient's age to complete this topic MENINGOCOCCAL (Group B) VACCINE Aged Out No longer eligible based on patient's age to complete this topic MENINGOCOCCAL VACCINE Aged Out No vinny donald eligible based on patient's age to complete this topic Care Teams Product Introduction Manager Relationship Specialty Start Date End Date Sebastian Pitts DO [address] [facility] [address] [place] [address] PCP - General 08/26/12
--- OUTSIDE RECORDS SUMMARY | 2024-09-15 10:34 | XMS_ITS | Encounter Summary ---
Author Organization [facility] Address [address] [facility] [place] [address] Care Team Providers Care Price Accuracy Supervisor Name Role Phone Sebastian Pitts DO Primary Care Provider [phone] Encounter Details Date Type Department Care Team (Late st Contact Info) Description 03/16/2020 Lab Requisition [facility] DermPath Lab [address] [facility] [place] [phone] [place] [address] Social History Tobacco Use Types [...] Priority Date/Time Associated Diagnosis Comments DERMATOPATHOLOGY Routine 03/15/2020 12:0 0 AM CDT documented in this encounter Results * DERMATOPATHOLOGY (03/15/2020 12:00 AM CDT) Case Report Dermatopathology Report Case: [id number] Authorizing Provider: Coy Keating MD Collected: 03/15/2020 12:00 AM Ordering Location: [facility] DermPath Lab Received: 03/16/2020 02:50 PM Pathologist: Addis Herrera MD Specimen: Skin, right nasal sidewall 0 3:29 PM CDT DERMATOPATHOLOGY LABORATORY Final Diagnosis Specimen A. SKIN, right nasal sidewall: BASAL CELL CARCINOMA, NODULAR TYPE (C44.311) 0 3:29 PM CDT DERMATOPATHOLOGY LABORATORY Clinical History R/O SK 0 3:29 PM CDT DERMATOPATHOLOGY LABORATORY Gross Description Specimen A: Received is one formalin filled container labeled with the patient's name and designated right nasal sidewall. The specimen consists of a shave biopsy measuring 8x5x2 mm. Jar 0. 0 3:29 PM CDT DERMATOPATHOLOGY LABORATORY Microscopic Description Specimen A. SKIN, right nasal sidewall: Within the dermis there are aggregates of basaloid cells with a high nuclear to cytoplasmic ratio and peripheral palisading. 0 3:29 PM CDT DERMATOPATHOLOGY LABORATORY Disclaimer An external and internal positive and negative controls are appropriate for the histochemical, immunohistochemical and immunofluorescence stain(s) in this case (if any), except where stated explicitly. The performance characteristics of the stain(s) cited in this report were developed and its performance characteristic determined by the Dermatopathology Laboratory at [facility], directed by Dr. Tio Antonio. These tests need not be, and therefore are not, approved by the [place] Food and Drug Administration. The tests are used for clinical purposes. Billing Codes Specimen Charges Stain Charges 11996 1 0 3:29 PM CDT DERMATOPATHOLOGY LABORATORY Embedded Images 0 3:29 PM CDT DERMATOPATHOLOGY LABORATORY Pathology/Cytolog y TISSUE SPECIMEN FROM SKIN / Unknown 03/15/2020 03/16/2020 2:50 PM CDT Coy Keating MD LAB - PATHOLOGY/CYTO LOGY ORDERABLES DERMATOPATHOLOGY LABORATORY [facility] - Department of Dermatology [facility]/[address] [phone] documented in this encounter Visit Diagnoses Not on filedocumented in this encounter Care Teams Price Accuracy Supervisor Relationship Specialty Start Date End Date Sebastian Pitts DO [address] [facility] [address] [place] [address] PCP - General 1/22/13 documented as of this encounter
--- OUTSIDE RECORDS SUMMARY | 2024-09-15 10:34 | XMS_ITS | Encounter Summary ---
Author Organization [facility] Address [address] [place] [address] Phone Care Team Providers Care Specialist Wound Care Name Role Phone Sebastian Pitts MD Primary Care Provider [phone] Mayur Urena DO Primary Care Provider [phone] Encounter Details Date Type Department Care Team (Late st Contact Info) Description 09/21/2022 Orders Only [facility] Scanning, Provider [...] on file Legal Sex Male 3:13 AM THERAPIST Gender Identity Male 03/26/2018 8:52 AM CDT Sexual Orientation Straight 07/05/2020 1: 06 PM THERAPIST documented as of this encounter Plan of Treatment Not on file documented as of this encounter Procedures Procedure Name Priority Date/Time Associated Diagnosis Comments SCAN - RADIOLOGY/IMAGING 09/21/2022 documented in this encounter Results * SCAN - RADIOLOGY/IMAGING (09/21/2022) Anatomical Region Laterality Modality Other us Provider Scanning Final Result documented in this encounter Visit Diagnoses Not on filedocumented in this encounter Care Teams Specialist Wound Care Relationship Specialty Start Date End Date Sebastian Pitts MD [address] [place] [address] PCP - General 11/02/16 07/21/24 Mayur Urena DO [address] [place] [address] PCP - General Internal Medicine 07/22/24 documented as of this encounter
--- OUTSIDE RECORDS SUMMARY | 2024-09-15 10:35 | XMS_ITS | Clinical Summary ---
Author Organization [facility] Address [address] [place] [address] Care Team Providers Care Sports Umpire Name Role Phone Unavailable Primary Care Provider Unavailabl e Social History Tobacco Use Types Packs/Day Years Used Date Smoking Tobacco: Never Assessed Sex and Gender Information Value Date Recorded Sex Assigned at Not on file Legal Sex Male 6:38 PM CDT Gender Identity Not on file Sexual Orientation Not on file Plan of Treatment Health Maintenance Due Date Last Done Comments Colorectal Cancer Screening Colonoscopy (10 Years) 1950 Hepatitis C 1968 DTaP, Tdap and Td Vaccines ( 1 - Tdap) 1969 Zoster Vaccines (1 of 2) 2000 Pneumococcal Vaccine: 65+ Ye ars (1 of 1 - PCV) 2015 COVID-19 Vaccine ( - 2023-2 5 season) 2024 Influenza Adult (#1) 2024 RSV Immunization or 60+ Years (1 - 1-dose 75+ series) 2025 Meningococcal B Vaccine Aged Out No l onger eligible based on patient's age to complete this topic Meningococcal Vaccine Aged Out No vinny donald eligible based on patient's age to complete this topic RSV Immunizations Under 20 Months Aged Out No longer eligible based on patient's age to complete this topic
--- OUTSIDE RECORDS SUMMARY | 2024-09-15 10:35 | XMS_ITS | Encounter Summary ---
Author Organization [facility] Address [address] [place] [address] Care Team Providers Care Support Director Name Role Phone Sebastian Pitts DO Primary Care Provider [phone] Encounter Details Date Type Department Care Team (Late st Contact Info) Description 11/09/2021 Lab Requisition [facility] DermPath Lab [address] [facility] [place] [id number] Coy [place] [address] Social History Tobacco Use Types [...] Priority Date/Time Associated Diagnosis Comments DERMATOPATHOLOGY Routine 11/08/2021 12:0 0 AM CDT documented in this encounter Results * DERMATOPATHOLOGY (11/08/2021 12:00 AM CDT) Case Report Dermatopathology Report Case: [id number] Authorizing Provider: Coy Keating MD Collected: 11/08/2021 12:00 AM Ordering Location: [facility] DermPath Lab Received: 11/09/2021 01:38 PM Pathologist: Addis Herrera MD Specimen: Skin, left lower vermilion lip 12:59 PM CDT DERMATOPATHOLOGY LABORATORY Final Diagnosis Specimen A. SKIN, left lower vermilion lip: BLAND DERMAL VASCULAR PROLIFERATION (D18.01) ULCER WITH SUPERFICIAL DERMAL NECROSIS (L98.499) HEALING SKIN CHANGES, CONSISTENT WITH (L90.5) (see microscopic description and comment) 2 12:59 PM CDT DERMATOPATHOLOGY LABORATORY Clinical History R/O SCC 12:59 PM CDT DERMATOPATHOLOGY LABORATORY Gross Description Specimen A: Received is one formalin filled container labeled with the patient's name and designated left lower vermilion lip. The specimen consists of a shave biopsy measuring [id number]. Jar 0. 12:59 PM CDT DERMATOPATHOLOGY LABORATORY Microscopic Description Specimen A. SKIN, left lower vermilion lip: In the dermis, there are dilated vascular spaces surrounded by widely spaced endothelial cells. There is an overlying ulcer, beneath which there are fibroblasts and an edematous stroma. There is epidermal hyperplasia with mild lower intraepidermal atypia, beneath which there are vascular proliferation, fibroblasts, and an edematous stroma. COMMENT: The overall histologic differential diagnosis includes an ulcerated hemangioma with associated reactive epidermal changes, which is somewhat favored, and a hypertrophic actinic keratosis with prominent reactive vascular proliferation secondary to ulceration. 12:59 PM CDT DERMATOPATHOLOGY LABORATORY Disclaimer An external and internal positive and negative controls are appropriate for the histochemical, immunohistochemical and immunofluorescence stain(s) in this case (if any), except where stated explicitly. The performance characteristics of the stain(s) cited in this report were developed and its performance characteristic determined by the Dermatopathology Laboratory at [facility], directed by Dr. Tio Antonio. These tests need not be, and therefore are not, approved by the [place] Food and Drug Administration. The tests are used for clinical purposes. Billing Codes Specimen Charges Stain Charges 40713 1 2 12:59 PM CDT DERMATOPATHOLOGY LABORATORY Embedded Images 12:59 PM CDT DERMATOPATHOLOGY LABORATORY Pathology/Cytolog y TISSUE SPECIMEN FROM SKIN / Unknown 11/08/2021 11/09/2021 1:38 PM CDT Coy Keating MD LAB - PATHOLOGY/CYTO LOGY ORDERABLES DERMATOPATHOLOGY LABORATORY [facility] - Department of Dermatology [facility] [address] [place] [address], [address] [phone] documented in this encounter Visit Diagnoses Not on filedocumented in this encounter Care Teams Support Director Relationship Specialty Start Date End Date Sebastian Pitts DO [address] [facility] [address] [facility] [address] [place] [address] PCP - General 08/26/12 documented as of this encounter
--- OUTSIDE RECORDS SUMMARY | 2024-09-15 10:35 | XMS_ITS | Encounter Summary ---
Author Organization [facility] Address [address] [facility] [place] [address] Care Team Providers Care Taper Operator Name Role Phone Sebastian Pitts DO Primary Care Provider [phone] Encounter Details Date Type Department Care Team (Late st Contact Info) Description 11/16/2020 Lab Requisition [facility] DermPath Lab [address] [place] [address] Coy Keating MD [address] [place] [address] Social History Tobacco Use Types [...] Priority Date/Time Associated Diagnosis Comments DERMATOPATHOLOGY Routine 11/15/2020 12:0 0 AM CDT documented in this encounter Results * DERMATOPATHOLOGY (11/15/2020 12:00 AM CDT) Case Report Dermatopathology Report Case: [id number] Authorizing Provider: Coy Keating MD Collected: 11/15/2020 12:00 AM Ordering Location: [facility] DermPath Lab Received: 11/16/2020 01:17 PM Pathologist: Addis Herrera MD Specimen: Skin, right lateral lower lg lip 1 11:54 AM CDT DERMATOPATHOLOGY LABORATORY Amended Report Date of collection changed from 11/16/20 to 11/15/20. 11:54 AM [facility] DERMATOPATHOLOGY LABORATORY Addendum 1 Pancytokeratin immunostain and special stains as per below were performed to evaluate for an infectious etiology of the histologic findings and assess for tumor. 11:54 AM T DERMATOPATHOLOGY LABORATORY Addendum electronically signed by Addis Herrera MD on 11/18/2020 at 1:47 PM Final Diagnosis Specimen A. SKIN, right lateral lower lg lip: INTRACORNEAL FUNGAL HYPHAE AND YEAST FORMS WITH GRAM-POSITIVE BACTERIAL COCCI (B35.9) HEALING SKIN CHANGES (L90.5) GRANULATION TISSUE (L92.9) (see microscopic description and comment) 11:54 AM T DERMATOPATHOLOGY LABORATORY Amendment electronically signed by Addis Herrera MD on 12/01/2020 at 11:54 AM Clinical History R/O SCC. 11:54 AM [facility] DERMATOPATHOLOGY LABORATORY Gross Description Specimen A: Received is one formalin filled container labeled with the patient's name and designated right lateral lower lg lip. The specimen consists of a punch biopsy measuring [id number]. Jar 0. 11:54 AM [facility] DERMATOPATHOLOGY LABORATORY Microscopic Description Specimen A. SKIN, right lateral lower lg lip: Epidermal spongiosis is noted with focal intracorneal neutrophils. There is focal epidermal hyperplasia beneath which there are vascular proliferation, fibroblasts, and an edematous stroma. Sections show edema, an increased number of thin-walled vessels and a prominent mixed inflammatory infiltrate. Pancytokeratin immunostain does not reveal invasive carcinoma. A Grocott's methenamine silver (GMS) stain identifies fungal hyphae and yeast forms in the stratum corneum. Tissue Gram stain reveals scattered intracorneal bacterial cocci in the sections examined. Tissue DONALD stain is negative for acid-fast bacteria in the sections examined. There is no evidence of epithelial dysplasia or malignancy in multiple deeper sections examined. COMMENT: The overall histologic features are those of healing skin changes and granulation tissue, with concern for cutaneous fungal infection, possibly occurring in association with bacterial infection or impetiginization. Clinical correlation with culture is recommended if clinically indicated. 11:54 AM CDT DERMATOPATHOLOGY LABORATORY Disclaimer An external and [...] purposes. Billing Codes Specimen Charges Stain Charges 23143 1 36071 67573 82685 64485 1 1 1 1 1 11:54 AM CDT DERMATOPATHOLOGY LABORATORY Embedded Images 11:54 AM CDT DERMATOPATHOLOGY LABORATORY Pathology/Cytolog y TISSUE SPECIMEN FROM SKIN / Unknown 11/15/2020 11/16/2020 1:17 PM CDT Coy Keating MD LAB - PATHOLOGY/CYTO LOGY ORDERABLES Performing Organization Address [facility]/State/ZIP Co de Phone Number DERMATOPATHOLOGY LABORATORY [facility] - Department of Dermatology [facility] [address] [place] [address], [address]rd [address] [phone] documented in this encounter Visit Diagnoses Not on filedocumented in this encounter Care Teams Taper Operator Relationship Specialty Start Date End Date Sebastian Pitts DO [address] [facility] [address] [facility] [address] [place] [address] PCP - General 08/26/12 documented as of this encounter
--- OUTSIDE RECORDS SUMMARY | 2024-09-15 10:35 | XMS_ITS | Encounter Summary ---
Author Organization [facility] Address [address] [place] [address] Care Team Providers Care Resident Advisor Name Role Phone Sebastian Pitts DO Primary Care Provider [phone] Encounter Details Date Type Department Care Team (Late st Contact Info) Description 02/06/2019 Lab Requisition [facility] Care DermPath Lab [address] [facility] [place] [address] Coy Ke[place] [address] Social History Tobacco Use Types [...] Priority Date/Time Associated Diagnosis Comments DERMATOPATHOLOGY Routine 02/04/2019 12:0 0 AM CDT documented in this encounter Results * DERMATOPATHOLOGY (02/04/2019 12:00 AM CDT) Case Report Dermatopathology Report Case: [id number] Authorizing Provider: Coy Keating MD Collected: 02/04/2019 12:00 AM Pathologist: Susana Agarwal MD Received: 02/06/2019 01:14 PM Specimen: Skin, left medial trapezius neck 9 11:16 AM CDT DERMATOPATHOLOGY LABORATORY Final Diagnosis Specimen A. 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 Check margins. 11:16 AM CDT DERMATOPATHOLOGY LABORATORY Gross Description Specimen A: Received is one formalin filled container labeled with the patients name and designated left medial trapezius neck. The specimen consists of a shave removal measuring [id number]. The margin is inked green. Jar 0. 11:16 AM CDT DERMATOPATHOLOGY LABORATORY Microscopic Description Specimen A. SKIN, left medial trapezius neck: The epidermis shows parakeratosis, full thickness disorderly maturation of keratinocytes, mitoses at different levels, and dyskeratotic cells. This lesion is not present at the sampled margin of the specimen. 11:16 AM CDT DERMATOPATHOLOGY LABORATORY Disclaimer An external and internal positive and negative controls are appropriate for the histochemical, immunohistochemical and immunofluorescence stain(s) in this case (if any), except where stated explicitly. The performance characteristics of the stain(s) cited in this report were developed and its performance characteristic determined by the Dermatopathology Laboratory at [facility], directed by Dr. Tio Antonio. These tests need not be, and therefore are not, approved by the [place] Food and Drug Administration. The tests are used for clinical purposes. Billing Codes Specimen Charges Stain Charges 64361 1 11:16 AM CDT DERMATOPATHOLOGY LABORATORY Embedded Images 11:16 AM CDT DERMATOPATHOLOGY LABORATORY Pathology/Cytolog y TISSUE SPECIMEN FROM SKIN / Unknown 02/04/2019 02/06/2019 1:14 PM CDT Coy Keating MD LAB - PATHOLOGY/CYTO LOGY ORDERABLES DERMATOPATHOLOGY LABORATORY [facility] - Department of Dermatology [address] [facility], 5th Floor Lab [address] [phone] documented in this encounter Visit Diagnoses Not on filedocumented in this encounter Care Teams Resident Advisor Relationship Specialty Start Date End Date Sebastian Pitts DO [address] [facility] [address] [place] [address] PCP - General 08/26/12 documented as of this encounter
[2024-09-15 10:36] LABS: NT Pro B Type Natriuretic Pept 222 pg/mL (19.9-100); Troponin I < 0.012 ng/mL (0.000-0.034)
[2024-09-15 10:39] LABS: D Dimer 5.17 ug/mL (<0.48)
[2024-09-15 10:47] LABS: Influenza A QL RT-PCR Negative (Negative); Influenza B QL RT-PCR Negative (Negative); RSV RNA, RT-PCR Negative (Negative); SARS-CoV-2 RNA PCR Negative (Negative)
[2024-09-15 11:52] LABS: Add Urine Microscopic? NO; Appearance Urine Clear (Clear); Bilirubin Urine Negative (Negative); Blood Urine Negative (Negative); Color Urine Yellow (Yellow); Glucose Urine UA 3+ mg/dL (Negative); Ketones Urine Negative (Negative); Leukocyte Esterase Ur Negative LEU/UL (Negative); Nitrate Urine Negative (Negative); Protein Urine Negative (Negative); Specific Grav Ur 1.014 (1.001-1.035); Urobilinogen Urine 0.2 mg/dL (<2.0); pH Urine 5.5 (5.0-9.0)
[2024-09-15] MEDS: DOXYCYCLINE HYCLATE 100 MG TABLET PO (13:01)
[2024-09-15] MEDS: ALBUTEROL SULFATE (*SP) INHALER 2 PUFF INHALATION (13:25)
== END 2024-09-15 15:26 | disposition home or self-care (01) ==
PROVIDERS: Emergency Provider Emergency Medicine; PCP Internal Medicine
DX: J18.9 Pneumonia, unspecified organism (principal); Z20.822 Contact with and (suspected) exposure to COVID-19; I10 Essential (primary) hypertension; Z87.891 Personal history of nicotine dependence; I45.9 Conduction disorder, unspecified; R94.31 Abnormal electrocardiogram [ECG] [EKG]; Z79.622 Long term (current) use of Janus kinase inhibitor; Z79.82 Long term (current) use of aspirin; Z79.899 Other long term (current) drug therapy
CPT/HCPCS: 36415; 71045; 71275; 80053; 81003; 83605; 83690; 83880; 84484; 85025; 85380; 87040; 87637; 93005; 94664; 96361; 96365; 99284; A9270; J0696; J7120; Q9967

== ENCOUNTER 2024-09-29 12:43 | Outpatient (CLI) | payer MEDICARE, SELFPAY ==
--- NOTE | ~2024-09-29 | MR_ITS ---
EXAMINATION: MR ankle LT wo/w con DATE: 09/29/2024 14:00 INDICATION: Left foot and ankle pain TECHNIQUE: Magnetic resonance imaging (MRI) of the left ankle was performed without and with 15 mL Mu ltihance intravenous contrast. Sequences included axial, sagittal and coronal PD-weighted FSE and PD- weighted FS FSE, axial T1-weighted FSE, axial T1-weighted FS FSE, sagittal fluid sensitive FSE STIR a nd postcontrast axial and coronal T1-weighted FS FSE. COMPARISON: None. FINDINGS: Bones/other: Pes planus. No fracture. Advanced osteoarthritis of the ankle joint with remodeling as well as subart icular edema-like and cystlike changes at the talar dome the tibial plafond and. Additional edema-lik e and cystic change at the lateral malleolus. There is prominent hypertrophic marginal osteophytes. T here are additional degenerative edema-like and cystlike changes along the cephalad margin of the ant erior process of the calcaneus and the juxtaposed distal margin of the lateral malleolus which can be seen with lateral hindfoot impingement. Additional mild polyarticular osteoarthritis the multiple sadie ints the mid and hindfoot. Large plantar calcaneal spur. Nonspecific chronic corticated circumferenti al periosteal reaction about the distal metaphyseal region of the tibia. There is fatty atrophy of th e visualized intrinsic musculature in the distal lower leg. Medial ankle ligaments: Heterotopic ossification along the deep deltoid ligament consistent with sequela of chronic sprain. 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 The spring ligament complex remains intact. Lateral ankle ligaments: The anterior and posterior inferior tibiofibular ligaments are normal. The calcaneofibular and inspector penetrant ior talofibular ligaments are normal. The anterior talofibular ligament is not identified and likely torn with prominent heterotopic ossification along the anteromedial aspect lateral malleolus and alida g the lateral margin of the neck of the talus. Tendons: Achilles tendon is normal. Mild tendinopathy without tear of the distal peroneus longus tendon center ed at the peroneal tunnel of the cuboid with mild edema and cystlike change in the underlying cuboid. There is attenuation of an approximately 3 cm length of the peroneus brevis tendon centered at the l evel of the tip of the lateral malleolus consistent with partial thickness tear. The tibialis anterio r and extensor hallucis longus and extensor digitorum longus tendons are normal. The tibialis posteri or, flexor digitorum longus and flexor hallucis longus tendons are normal. Plantar fascia: Moderate tendinopathy of the central component of the plantar aponeurosis with mild partial-thickness tear along the superficial medial side of the central component of the aponeurosis. Fluid: Likely reactive moderate enhancing synovitis without significant effusion at the recesses of the tibi otalar and subtalar joints. IMPRESSION: 1. 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 2. Likely chronic tears of the anterior talofibular as well as the deep and superficial deltoid ligam ents. 3. Mild peroneus brevis tendinopathy with partial thickness tear centered at the level of the tip the lateral malleolus. 4. Findings consistent with peroneal tunnel syndrome including mild tendinopathy without tear of the peroneus longus tendon centered at the level of the peroneal tunnel of the cuboid were there is assoc iated edema-like and cystlike change. 5. Pes planus and degenerative changes at the tip of the lateral malleolus and adjacent calcaneus whi ch can be seen in the setting of lateral hindfoot impingement syndrome. Reviewed, dictated and finalized at location B. ER OFF IMPRESSION: 1. 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 2. Likely chronic tears of the anterior talofibular as well as the deep and sup erficial deltoid ligaments. 3. Mild peroneus brevis tendinopathy with partial thickness tear centered at th e level of the tip the lateral malleolus. 4. Findings consistent with peroneal tunnel syndrome including mild tendinopath y without tear of the peroneus longus tendon centered at the level of the peron eal tunnel of the cuboid were there is associated edema-like and cystlike marks e. 5. Pes planus and degenerative changes at the tip of the lateral malleolus and adjacent calcaneus which can be seen in the setting of lateral hindfoot impinge ment syndrome.
--- OUTSIDE RECORDS SUMMARY | 2024-09-29 14:20 | XMS_ITS | Encounter Summary ---
Author Organization [facility] Address [address] [place] [address] Phone Care Team Providers Care Air Export Logistics Manager Name Role Phone Mayur Urena DO Primary Care Provider [phone] Encounter Details Date Type Department Care Team (Late st Contact Info) Description 09/25/2024 Orders Only [facility] Nephrology [address] [facility] 5th [place] [address] [place] [address] Merlin Horton MD [facility] [address] [place] [address] Social History Tobacco Use Types Packs/Day Years [...] on file Legal Sex Male 3:13 AM RECRUITING ASSISTANT Gender Identity Male 03/26/2018 8:52 AM CDT Sexual Orientation Straight 07/05/2020 1: 06 PM RECRUITING ASSISTANT documented as of this encounter Plan of Treatment Not on file documented as of this encounter Visit Diagnoses Not on filedocumented in this encounter Care Teams Air Export Logistics Manager Relationship Specialty Start Date End Date Mayur Urena DO [address] [address] PCP - General Internal Medicine 07/22/24 documented as of this encounter
--- OUTSIDE RECORDS SUMMARY | 2024-09-29 14:20 | XMS_ITS | Referral Summary ---
Author Organization [facility] [address] Address [address] [place] [address] Care Team Providers Care Wood Drilling Machine Operator Name Role Phone Mayur Urena DO Primary Care Provider [phone] Encounters Date Type Department Care Team Description 09/25/2024 Orders Only [facility] Nephrology [address] [place] [address] 5th [place] [address] [place] [address] Merlin Horton MD 09/11/2024 4:35 PM MEDICAL RESEARCH SCIENTIST Lab [facility] Advanced Medicine ([facility]) [address] [place] [phone] SARAI (acute kidney injury) (HCC) 09/11/2024 2:15 PM MEDICAL RESEARCH SCIENTIST Office Visit [facility] Nephrology [address] [place] [address] 5th [place] [address] [place] [address] Merlin Horton MD Lower urinary tract symptoms (LUTS) (Primary Dx); Elevated serum creatinine; Rheumatoid arthritis involving multiple sites with positive rheumatoid factor (CMS/HCC) (HCC); Ischemic cardiomyopathy 09/07/2024 Orders Only [facility] Rheumatology [address] [place] [address] Tabby Sweeney RMA Foot pain, left (Primary Dx) 08/07/2024 10:40 AM MEDICAL RESEARCH SCIENTIST Office Visit [facility] Advanced [facility] [address] [place] [address] 11th [place] [address] [place] [address] Cortez Go MD Bilateral impacted cerumen (Primary Dx) 08/07/2024 9:30 AM MEDICAL RESEARCH SCIENTIST Procedure visit [facility] Otolaryngology [address] 11th [place] [address] [place] [phone] Alecia Grewal Au.D. 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) (Primary Dx); History of ST elevation myocardial infarction; Status post angioplasty with stent; S/P CABG x 3; Ischemic cardiomyopathy; PAD (peripheral artery disease) (HCC) 07/17/2024 Telephone [facility] Rheumatology [address] 5th [place] [address] [place] [address] Tawanna Shafer MD from Last 3 Months Allergies Active Allergy Reactions Criticality Noted Date Comments Bacitracin Rash Medium Colistimethate Sodium Rash Medium Gramicidin D Rash Medium Lisinopril Angioedema,Other (See comments) High 06/11/2023 Reaction: lips swelled, , Reaction: FACIAL SWELLING, , Reaction: Other, Lips swell Neomycin Rash Medium Nzqxosof-Czcnsvifrc-Cdvrd yxin Rash,Other (See comments) Medium 07/25/2011 Reaction: RASH, Reaction: Rash, Neosporin (Neomycin-Polymyx) Unknown Polymyxin B Rash Medium Pramoxine Rash Medium Medications aspirin 81 mg tablet take 1 tablet (81MG) by oral route every day 0 012 Active multivitamin tablet tablet take 1 tablet by oral route every day with food 0 012 Active citalopram (CeleXA) 20 mg tablet take 1 tablet by oral route every day 0 0 013 Active gabapentin (NEURONTIN) 300 mg capsuleIndication s:Neuropathic Pain Take 1 tablet by mouth at night 90 capsule 3 020 Active ibuprofen-diphenh ydramine HCl 200-25 mg capsuleIndication s:Insomnia Take 1 tablet by mouth nightly Active cyclobenzaprine (FLEXERIL) 10 mg tabletIndications :Muscle Spasm Take 1 tablet (10 mg total) by mouth 2 (two) times a day as needed for muscle spasms 0 023 Active dicyclomine (BENTYL) 20 mg tabletIndications :Abdominal Pain with Cramps,Irritable Bowel Syndrome Take 1 tablet (20 mg total) by mouth spout positioner before breakfast 023 Active traZODone (DESYREL) 50 mg tabletIndications :insomnia associated with depression Take 1 tablet (50 mg total) by mouth nightly 023 Active tofacitinib (Xeljanz XR) 11 mgIndications:Rhe umatoid Arthritis Take 1 tablet (11 mg total) by mouth daily 90 tablet 1 024 Active sacubitriL-valsar verde (ENTRESTO) 24-26 mg tabletIndications :chronic heart failure Take 1 tablet by mouth 2 (two) times a day 60 tablet 11 024 Active empagliflozin (JARDIANCE) 10 mg tablet Take 1 tablet (10 mg total) by mouth daily 90 tablet 3 024 Active ranolazine ER (RANEXA) 500 mg 12 hr tabletIndications :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) Take 1 tablet (500 mg total) by mouth 2 (two) times a day 60 tablet 11 024 2024 Active carvediloL (COREG) 3.125 mg tabletIndications :Ischemic cardiomyopathy TAKE 1 TABLET BY MOUTH TWICE A DAY WITH FOOD 180 tablet 3 024 Active clopidogreL (PLAVIX) 75 mg tablet Take 1 tablet (75 mg total) by mouth daily 90 tablet 1 024 Active leflunomide (ARAVA) 20 mg tabletIndications :Rheumatoid arthritis involving multiple sites with positive rheumatoid factor (CMS/HCC) (HCC) Take 1 tablet (20 mg total) by mouth daily 90 [address] (PROTONIX) 20 mg EC tablet TAKE 1 TABLET BY MOUTH EVERY DAY 90 tablet 2 024 Active sildenafiL (VIAGRA) 100 mg tablet TAKE 1 TABLET BY MOUTH EVERY DAY NEEDED FOR ERECTILE DYSFUNCTION 10 tablet 11 024 Active fluticasone propionate (FLONASE) 50 mcg/actuation nasal spray INSTILL 2 SPRAY INTRANASALLY DAILY ADMINISTER INTO EACH NOSTRIL Active predniSONE (DELTASONE) 5 mg tablet Take 1 tablet (5 mg) by mouth daily 90 tablet 1 025 Active rosuvastatin (CRESTOR) 40 mg tablet TAKE 1 TABLET BY MOUTH EVERY DAY 90 tablet 025 Active rosuvastatin (CRESTOR) 40 mg tablet TAKE 1 TABLET BY MOUTH EVERY DAY 90 tablet 024 2024 Discontinued Active Problems Problem Noted Date Diagnosed Date [...] ng multiple sites with positive rheumatoid factor ([facility]) 08/06/2009 Encounter for preventive health examination 07/06 Resolved Problems Problem Noted Date Diagnosed Date Resolved Date Knee pain 03/18/2015 03/07/2018 Immunizations Immunization Administration Dates Next Due Influenza, Split 05/05/2018 [...] on file Legal Sex Male 3:13 AM MEDICAL RESEARCH SCIENTIST Gender Identity Male 03/26/2018 8:52 AM CDT Sexual Orientation Straight 07/05/2020 1: 06 PM MEDICAL RESEARCH SCIENTIST Last Filed Vital Signs Vital Sign Reading Time Taken Comments Blood Pressure 100/67 09/11/2024 1:59 PM MEDICAL RESEARCH SCIENTIST Pulse 75 09/11/2024 1:59 PM MEDICAL RESEARCH SCIENTIST Temperature 36.7 C (98.1 F) 09/11/2024 1:59 PM MEDICAL RESEARCH SCIENTIST Respiratory Rate 16 09/11/2024 1:59 PM MEDICAL RESEARCH SCIENTIST Oxygen Saturation 95% 09/11/2024 1:59 PM MEDICAL RESEARCH SCIENTIST Inhaled Oxygen Concentration - - Weight 73.2 kg (161 lb 6.4 oz) 09/11/2024 1:59 P M MEDICAL RESEARCH SCIENTIST Height 177.8 cm (5' 10 ) 07/22/2024 1:04 PM MEDICAL RESEARCH SCIENTIST Body Mass Index 23.16 07/22/2024 1:04 PM MEDICAL RESEARCH SCIENTIST Plan of Treatment Not on file Procedures Procedure Name Priority Date/Time Associated Diagnosis Comments EGFR Routine 09/11/2024 3:11 PM MEDICAL RESEARCH SCIENTIST SARAI (acute kidney injury) (HCC) DIFFERENTIAL AUTO Routine 09/11/2024 3:1 1 PM MEDICAL RESEARCH SCIENTIST SARAI (acute kidney injury) (HCC) RENAL FUNCTION PANEL Routine 09/11/2024 3:11 PM MEDICAL RESEARCH SCIENTIST SARAI (acute kidney injury) (HCC) CBC WITH AUTO DIFFERENTIAL Routine 09/11/2024 3:11 PM MEDICAL RESEARCH SCIENTIST SARAI (acute kidney injury) (HCC) AUDBASE RESULTS 08/07/2024 8:53 AM MEDICAL RESEARCH SCIENTIST CREATININE, URINE, RANDOM Routine 07/13/2024 10:36 AM MEDICAL RESEARCH SCIENTIST Rheumatoid arthritis involving multiple sites with positive rheumatoid factor (CMS/HCC) (HCC) High risk medication use Elevated serum creatinine UREA NITROGEN, URINE, RANDOM Routine 07/13/2024 10:36 AM MEDICAL RESEARCH SCIENTIST Rheumatoid arthritis involving multiple sites with positive rheumatoid factor (CMS/HCC) (HCC) High risk medication use Elevated serum creatinine RENAL FUNCTION PANEL Routine 07/13/2024 10:36 AM MEDICAL RESEARCH SCIENTIST Rheumatoid arthritis involving multiple sites with positive rheumatoid factor (CMS/HCC) (HCC) High risk medication use Elevated serum creatinine REFLEXIVE URINE CULTURE Routine 07/13/2024 10:36 AM MEDICAL RESEARCH SCIENTIST URINALYSIS AND REFLEX TO MICROSCOPIC AND CULTURE Routine 07/13/2024 10:36 AM MEDICAL RESEARCH SCIENTIST Rheumatoid arthritis involving multiple sites with positive rheumatoid factor (CMS/HCC) (HCC) High risk medication use Elevated serum creatinine from Last 3 Months Results * (ABNORMAL) eGFR (09/11/2024 3:11 PM MEDICAL RESEARCH SCIENTIST) eGFR 51(L) >=60 mL/min/1. 73 m2 Comment: [...] last reviewed 2021. Blood 09/11/2024 3:11 PM MEDICAL RESEARCH SCIENTIST 09/11/2024 3:30 PM MEDICAL RESEARCH SCIENTIST us Merlin Horton MD LAB BLOOD ORDERABLES F inal Result [facility] Department [place] [address] * (ABNORMAL) Differential, auto (09/11/2024 3:11 PM MEDICAL RESEARCH SCIENTIST) Neutrophil abs 6.8(H) 1.5 - 6.5 K/cumm Imm gran abs 0.1 0.0 - 0.1 K/cumm [facility] Lymphocyte abs 1.3 0.8 - 3.3 K/cumm [facility] Monocyte abs 0.8 0.2 - 0.8 K/cumm [facility] Eosinophil abs 0.1 0.0 - 0.5 K/cumm [facility] Basophil abs 0.0 0.0 - 0.1 K/cumm [facility] Neutrophil pct 74.2 % [facility] Comment: Interpretive Data Percent cell count reference ranges are not reported, since discordance with absolute values may lead to misinterpretation of CBC data. Current Interpretive Data was last revised on 2017. Imm gran pct 0.7 % [facility] Comment: Interpretive Data Percent cell count reference ranges are not reported, since discordance with absolute values may lead to misinterpretation of CBC data. Current Interpretive Data was last revised on 2017. Lymphocyte pct 14.2 % [facility] Comment: Interpretive Data Percent cell count reference ranges are not reported, since discordance with absolute values may lead to misinterpretation of CBC data. Current Interpretive Data was last revised on 2017. Monocyte pct 9.1 % [facility] Comment: Interpretive Data Percent cell count reference ranges are not reported, since discordance with absolute values may lead to misinterpretation of CBC data. Current Interpretive Data was last revised on 2017. Eosinophil pct 1.5 % [facility] Comment: Interpretive Data Percent cell count reference ranges are not reported, since discordance with absolute values may lead to misinterpretation of CBC data. Current Interpretive Data was last revised on 2017. Basophil pct 0.3 % [facility] Comment: Interpretive Data Percent cell count reference ranges are not reported, since discordance with absolute values may lead to misinterpretation of CBC data. Current Interpretive Data was last revised on 2017. Blood 09/11/2024 3:11 PM MEDICAL RESEARCH SCIENTIST 09/11/2024 3:27 PM MEDICAL RESEARCH SCIENTIST us Merlin Horton MD LAB BLOOD ORDERABLES F inal Result [facility] Department [place] [address] * (ABNORMAL) CBC with auto differential (09/11/2024 3:11 PM MEDICAL RESEARCH SCIENTIST) WBC 9.2 3.8 - 9.9 K/cumm Hgb 12.7(L) 13.0 - 17.5 g/dL [facility] Hct 39.7 38.9 - 50.3 % [facility] Plt 225 150 - 400 K/cumm [facility] MPV 10.0 9.1 - 12.3 fL [facility] RBC 4.41 4.30 - 5.80 M/cumm [facility] MCV 90.0 81.3 - 96.4 fL [facility] MCH 28.8 27.1 - 33.3 pg [facility] MCHC 32.0(L) 32.3 - 35.7 g/dL [facility] RDW CV 14.7 11.1 - 14.9 % [facility] RDW SD 48.1 35.7 - 48.1 fL [facility] NRBC abs 0.00 0.00 - 0.01 K/cumm [facility] Blood 09/11/2024 3:11 PM MEDICAL RESEARCH SCIENTIST 09/11/2024 3:27 PM MEDICAL RESEARCH SCIENTIST Merlin Horton MD LAB BLOOD ORDERABLES F inal Result [facility] Department [place] [address] * (ABNORMAL) Renal function panel (09/11/2024 3:11 PM MEDICAL RESEARCH SCIENTIST) Sodium 138 135 - 145 mmol/L Potassium, pl 4.6 3.3 - 4.9 mmol/L [facility] Comment:Hemolyzed; Potassium value may be falsely elevated by as much as 0.3-0.5 mmol/L. Suggest redraw and reanalysis. Chloride 104 97 - 110 mmol/L [facility] CO2 25 22 - 32 mmol/L [facility] Anion gap 9 2 - 15 mmol/L [facility] BUN 21 6 - 25 mg/dL [facility] Creatinine 1.44(H) 0.80 - 1.30 mg/dL [facility] Glucose 96 70 - 199 mg/dL [facility] Comment: Interpretive Data Fasting glucose >/= [...] Calcium 8.9 8.5 - 10.3 mg/dL [facility] Phosphorus, pl 2.7 2.3 - 4.5 mg/dL [facility] Albumin 4.0 3.5 - 5.0 g/dL [facility] Blood 09/11/2024 3:11 PM MEDICAL RESEARCH SCIENTIST 09/11/2024 3:27 PM MEDICAL RESEARCH SCIENTIST us Merlin Horton MD LAB BLOOD ORDERABLES F inal Result Performing Organization Address City/[facility]/ZIP Co de Phone Number MAYRA HERRERA [facility] Department [place] [address] * [employer] Results (08/07/2024 8:53 AM MEDICAL RESEARCH SCIENTIST) us Provider Scanning AUDIOLOGY SERVICES ORDERABLES Final Result * REFLEXIVE URINE CULTURE (07/13/2024 10:36 AM MEDICAL RESEARCH SCIENTIST) Urine culture [facility] Comment:NO CULTURE INDICATED 07/13/2024 10:3 6 AM MEDICAL RESEARCH SCIENTIST 07/13/2024 10:36 AM MEDICAL RESEARCH SCIENTIST Narrative [facility] - 07/15/2024 4:10 PM MEDICAL RESEARCH SCIENTIST FASTING:NO FASTING: NO us Tawanna Shafer MD LAB MICROBIOLOGY - GENERAL O RDERABLES Final Result Performing Organization Address [facility] Co de Phone Number [facility] [address] [place] [address] * (ABNORMAL) Urinalysis reflex to microscopic and culture Urine, clean voided (07/13/2024 10:36 AM MEDICAL RESEARCH SCIENTIST) Color, ur YELLOW YELLOW [facility] [...] SEEN < OR = 5 /HPF [facility] RBC, ur NONE SEEN < OR = 2 /HPF [facility] Epithelial cells, squamous, ur NONE SEEN < OR = 5 /HPF [facility] Bacteria, ur, quant NONE SEEN NONE SEEN /HPF [facility] Hyaline cast NONE SEEN NONE SEEN /LPF [facility] Note [facility] Comment: This urine was analyzed for the presence of WBC, RBC, bacteria, casts, and other formed elements. Only those elements seen were reported. Urine, clean voided 07/13/2024 10:36 AM MEDICAL RESEARCH SCIENTIST 07/13/2024 10:36 AM MEDICAL RESEARCH SCIENTIST Narrative [facility] - 07/15/2024 4:10 PM MEDICAL RESEARCH SCIENTIST FASTING:NO FASTING: NO Tawanna Shafer MD LAB MICROBIOLOGY - GENERAL O RDERABLES Final Result Performing Organization Address City/[facility]/ZIP Co de Phone Number [place] [facility] [email or web address] [address] [place] [address] * Urea nitrogen, urine, random (07/13/2024 10:36 AM MEDICAL RESEARCH SCIENTIST) Urea nitrogen, ur 693 mg/dL [facility] Comment: No normals available for specimens other than 24 hour collections. Urine 07/13/2024 10:3 6 AM MEDICAL RESEARCH SCIENTIST 07/13/2024 10:36 AM MEDICAL RESEARCH SCIENTIST Narrative [facility] - 07/15/2024 4:10 PM MEDICAL RESEARCH SCIENTIST FASTING:NO FASTING: NO Tawanna Shafer MD LAB URINE ORDERABLES Final R esult [place] [facility] [address] [place] [address] * Creatinine, urine, random (07/13/2024 10:36 AM MEDICAL RESEARCH SCIENTIST) Creatinine, ur 101 20 - 320 mg/dL [facility] Urine 07/13/2024 10:3 6 AM MEDICAL RESEARCH SCIENTIST 07/13/2024 10:36 AM MEDICAL RESEARCH SCIENTIST Narrative [facility] - 07/15/2024 4:10 PM MEDICAL RESEARCH SCIENTIST FASTING:NO FASTING: NO us Tawanna Shafer MD LAB URINE ORDERABLES Final R esult [facility] [address] [place] [address] * (ABNORMAL) Renal function panel (07/13/2024 10:36 AM MEDICAL RESEARCH SCIENTIST) Pathologist [facility] Glucose 100 65 - 139 mg/dL [facility] Comment: Non-fasting reference interval BUN 27(H) 7 - 25 mg/dL [facility] Creatinine 1.61(H) 0.70 - 1.28 mg/dL [facility] eGFR 45(L) > OR = 60 mL/min/1.7 3m2 [facility] BUN/creat ratio 17 6 - 22 (calc) [facility] Sodium 139 135 - 146 mmol/L [facility] Potassium, pl 4.3 3.5 - 5.3 mmol/L [facility] Chloride 107 98 - 110 mmol/L [facility] CO2 22 20 - 32 mmol/L [facility] Calcium 9.2 8.6 - 10.3 mg/dL [facility] Phosphorus, sr 3.3 2.1 - 4.3 mg/dL [facility] Albumin 4.0 3.6 - 5.1 g/dL [facility] Blood 07/13/2024 10:3 6 AM MEDICAL RESEARCH SCIENTIST 07/13/2024 10:36 AM MEDICAL RESEARCH SCIENTIST Narrative [facility] - 07/15/2024 4:10 PM MEDICAL RESEARCH SCIENTIST FASTING:NO FASTING: NO us Tawanna Shafer MD LAB BLOOD ORDERABLES Final R esult [facility] [address] [place] [address] from Last 3 Months Insurance [employer] SENIOR SUPPLEMENT MEDICARE Member Subscriber Plan / Payer (Ef fective 2011-Present) Name:SUKH YANG Member ID:[id number] Relation to Subscriber:Self Name:Sukh Yang Subscriber ID:[id number] Payer ID:[id number] Group ID:Not on file Type:MEDICARE [employer] Address: [address] [address] MEDICARE [employer] SENIOR SUPPLEMENT MEDICARE [employer] SENIOR SUPPLEMENT Advance Directives For more information, please contact: [phone] Documents on File Type Date Recorded Patient Pharmacy Services Director Expl anation ADVANCE DIRECTIVE 01/13/2024 10:00 AM Jared r of Acquisition Cost Estimator-Medical Care Teams Wood Drilling Machine Operator Relationship Specialty Start Date End Date Mayur Urena DO [address] [facility] [address] [place], [place] [id number] PCP - General Internal Medicine 07/22/24
--- OUTSIDE RECORDS SUMMARY | 2024-09-29 14:20 | XMS_ITS | Clinical Summary ---
Author Organization [facility] [address] [facility] [address] Address [address] [place] [address] Care Team Providers Care Well Service Derrick Worker Name Role Phone Mayur Urean DO Primary Care Provider [phone] Allergies Active Allergy Reactions Criticality Noted Date Comments Bacitracin Rash Medium Colistimethate Sodium Rash Medium Gramicidin D Rash Medium Lisinopril Angioedema,Other (See comments) High 06/11/2023 Reaction: lips swelled, , Reaction: FACIAL SWELLING, , Reaction: Other, Lips swell Neomycin Rash Medium Rjiwegsp-Bypxwphwis-Jylth yxin Rash,Other (See comments) Medium 07/25/2011 Reaction: [...] 1 tablet (20 mg total) by mouth diagnostics sales developer before breakfast 023 Active traZODone (DESYREL) 50 [...] 12 hr tabletIndications :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) Take [...] mouth daily 90 tablet [address] (PROTONIX) 20 mg EC tablet TAKE 1 TABLET BY MOUTH EVERY DAY 90 tablet 2 024 Active sildenafiL (VIAGRA) 100 mg tablet TAKE 1 TABLET BY MOUTH EVERY DAY NEEDED FOR ERECTILE DYSFUNCTION 10 tablet 11 024 Active fluticasone propionate (FLONASE) 50 mcg/actuation nasal spray INSTILL 2 SPRAY INTRANASALLY DAILY ADMINISTER INTO EACH NOSTRIL 024 Active predniSONE (DELTASONE) 5 mg tablet Take [...] ng multiple sites with positive rheumatoid factor ([facility]) 08/06/2009 Encounter for preventive health examination 07/06 Resolved Problems Problem Noted Date Diagnosed Date Resolved Date Knee pain 03/18/2015 03/07/2018 Encounters Date Type Department Care Team Description 09/25/2024 Orders Only [facility] Nephrology [address] [place] [address] Advanced Medicine 5th [place] [address] Merlin Horton MD 09/11/2024 4:35 PM STUDENT COUNSELLOR Lab [facility] Advanced [facility] ([facility] [address] [place] [phone] SARAI (acute kidney injury) (HCC) 09/11/2024 2:15 PM STUDENT COUNSELLOR Office Visit [facility] Nephrology [address] [place] [address] 5th [place] [address] Merlin Horton MD Lower urinary tract symptoms (LUTS) (Primary Dx); Elevated serum creatinine; Rheumatoid arthritis involving multiple sites with positive rheumatoid factor ([facility]/HCC) (HCC); Ischemic cardiomyopathy 09/07/2024 Orders Only [facility] Rheumatology [address] [facility] 2nd Floor [address] [place] [address] Tabby Sweeney RMA Foot pain, left (Primary Dx) 08/07/2024 10:40 AM STUDENT COUNSELLOR Office Visit [facility] ENT [address] [place] [address] Cortez Go MD Bilateral impacted cerumen (Primary Dx) 08/07/2024 9:30 AM STUDENT COUNSELLOR Procedure visit [facility] Otolaryngology [address] [place] [address] [place] [phone] Alecia Grewal Au.D. 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) (Primary Dx); History of ST elevation myocardial infarction; Status post angioplasty with stent; S/P CABG x 3; Ischemic cardiomyopathy; PAD (peripheral artery disease) (HCC) 07/17/2024 Telephone [facility] Rheumatology [facility] 5th [place] [address] [place] [address] Tawanna Shafer MD from Last 3 Months Immunizations Immunization Administration Dates Next Due Influenza, [...] on file Legal Sex Male 3:13 AM STUDENT COUNSELLOR Gender Identity Male 03/26/2018 8:52 AM CDT Sexual Orientation Straight 07/05/2020 1: 06 PM STUDENT COUNSELLOR Obstetrics History Last Filed Vital Signs Vital Sign Reading Time Taken Comments Blood Pressure 100/67 09/11/2024 1:59 PM STUDENT COUNSELLOR Pulse 75 09/11/2024 1:59 PM STUDENT COUNSELLOR Temperature 36.7 C (98.1 F) 09/11/2024 1:59 PM STUDENT COUNSELLOR Respiratory Rate 16 09/11/2024 1:59 PM STUDENT COUNSELLOR Oxygen Saturation 95% 09/11/2024 1:59 PM STUDENT COUNSELLOR Inhaled Oxygen Concentration - - Weight 73.2 kg (161 lb 6.4 oz) 09/11/2024 1:59 P M STUDENT COUNSELLOR Height 177.8 cm (5' 10 ) 07/22/2024 1:04 PM STUDENT COUNSELLOR Body Mass Index 23.16 07/22/2024 1:04 PM STUDENT COUNSELLOR Plan of Treatment Health Maintenance Due Date [...] Diagnosis Comments EGFR Routine 09/11/2024 3:11 PM STUDENT COUNSELLOR SARAI (acute kidney injury) (HCC) DIFFERENTIAL AUTO Routine 09/11/2024 3:1 1 PM STUDENT COUNSELLOR SARAI (acute kidney injury) (HCC) RENAL FUNCTION PANEL Routine 09/11/2024 3:11 PM STUDENT COUNSELLOR SARAI (acute kidney injury) (HCC) CBC WITH AUTO DIFFERENTIAL Routine 09/11/2024 3:11 PM STUDENT COUNSELLOR SARAI (acute kidney injury) (HCC) AUDBASE RESULTS 08/07/2024 8:53 AM STUDENT COUNSELLOR CREATININE, URINE, RANDOM Routine 07/13/2024 10:36 AM STUDENT COUNSELLOR Rheumatoid arthritis involving multiple sites with positive rheumatoid factor (CMS/HCC) (HCC) High risk medication use Elevated serum creatinine UREA NITROGEN, URINE, RANDOM Routine 07/13/2024 10:36 AM STUDENT COUNSELLOR Rheumatoid arthritis involving multiple sites with positive rheumatoid factor (CMS/HCC) (HCC) High risk medication use Elevated serum creatinine RENAL FUNCTION PANEL Routine 07/13/2024 10:36 AM STUDENT COUNSELLOR Rheumatoid arthritis involving multiple sites with positive rheumatoid factor (CMS/HCC) (HCC) High risk medication use Elevated serum creatinine REFLEXIVE URINE CULTURE Routine 07/13/2024 10:36 AM STUDENT COUNSELLOR URINALYSIS AND REFLEX TO MICROSCOPIC AND CULTURE Routine 07/13/2024 10:36 AM STUDENT COUNSELLOR Rheumatoid arthritis involving multiple sites with positive rheumatoid factor (CMS/HCC) (HCC) High risk medication use Elevated serum creatinine from Last 3 Months Results * (ABNORMAL) eGFR (09/11/2024 3:11 PM STUDENT COUNSELLOR) eGFR 51(L) >=60 mL/min/1. 73 m2 Comment: [...] last reviewed 2021. Blood 09/11/2024 3:11 PM STUDENT COUNSELLOR 09/11/2024 3:30 PM STUDENT COUNSELLOR us Merlin Horton MD LAB BLOOD ORDERABLES F inal Result [facility] [address] [facility] Department [place] [address] * (ABNORMAL) Differential, auto (09/11/2024 3:11 PM STUDENT COUNSELLOR) Neutrophil abs 6.8(H) 1.5 - 6.5 K/cumm Imm gran abs 0.1 0.0 - 0.1 K/cumm [facility] Lymphocyte abs 1.3 0.8 - 3.3 K/cumm [facility] Monocyte abs 0.8 0.2 - 0.8 K/cumm [facility] Eosinophil abs 0.1 0.0 - 0.5 K/cumm [facility] Basophil abs 0.0 0.0 - 0.1 K/cumm [facility] Neutrophil pct 74.2 % [facility] Comment: Interpretive Data Percent cell count reference ranges are not reported, since discordance with absolute values may lead to misinterpretation of CBC data. Current Interpretive Data was last revised on 2017. Imm gran pct 0.7 % [facility] Comment: Interpretive Data Percent cell count reference ranges are not reported, since discordance with absolute values may lead to misinterpretation of CBC data. Current Interpretive Data was last revised on 2017. Lymphocyte pct 14.2 % [facility] Comment: Interpretive Data Percent cell count reference ranges are not reported, since discordance with absolute values may lead to misinterpretation of CBC data. Current Interpretive Data was last revised on 2017. Monocyte pct 9.1 % [facility] Comment: Interpretive Data Percent cell count reference ranges are not reported, since discordance with absolute values may lead to misinterpretation of CBC data. Current Interpretive Data was last revised on 2017. Eosinophil pct 1.5 % [facility] Comment: Interpretive Data Percent cell count reference ranges are not reported, since discordance with absolute values may lead to misinterpretation of CBC data. Current Interpretive Data was last revised on 2017. Basophil pct 0.3 % [facility] Comment: Interpretive Data Percent cell count reference ranges are not reported, since discordance with absolute values may lead to misinterpretation of CBC data. Current Interpretive Data was last revised on 2017. Blood 09/11/2024 3:11 PM STUDENT COUNSELLOR 09/11/2024 3:27 PM STUDENT COUNSELLOR us Merlin Horton MD LAB BLOOD ORDERABLES F inal Result Performing Organization Address City/[facility] Co de Phone Number [facility] One [facility] Department [place] [address] * (ABNORMAL) CBC with auto differential (09/11/2024 3:11 PM STUDENT COUNSELLOR) Pathologist [facility] WBC 9.2 3.8 - 9.9 K/cumm Hgb 12.7(L) 13.0 - 17.5 g/dL [facility] Hct 39.7 38.9 - 50.3 % [facility] Plt 225 150 - 400 K/cumm [facility] MPV 10.0 9.1 - 12.3 fL [facility] RBC 4.41 4.30 - 5.80 M/cumm [facility] MCV 90.0 81.3 - 96.4 fL [facility] MCH 28.8 27.1 - 33.3 pg [facility] MCHC 32.0(L) 32.3 - 35.7 g/dL [facility] RDW CV 14.7 11.1 - 14.9 % [facility] RDW SD 48.1 35.7 - 48.1 fL [facility] NRBC abs 0.00 0.00 - 0.01 K/cumm [facility] Blood 09/11/2024 3:11 PM STUDENT COUNSELLOR 09/11/2024 3:27 PM STUDENT COUNSELLOR Merlin Horton MD LAB BLOOD ORDERABLES F inal Result [facility] Department [place] [address] * (ABNORMAL) Renal function panel (09/11/2024 3:11 PM STUDENT COUNSELLOR) Sodium 138 135 - 145 mmol/L Potassium, pl 4.6 3.3 - 4.9 mmol/L [facility] Comment:Hemolyzed; Potassium value may be falsely elevated by as much as 0.3-0.5 mmol/L. Suggest redraw and reanalysis. Chloride 104 97 - 110 mmol/L [facility] CO2 25 22 - 32 mmol/L [facility] Anion gap 9 2 - 15 mmol/L [facility] BUN 21 6 - 25 mg/dL [facility] Creatinine 1.44(H) 0.80 - 1.30 mg/dL [facility] Glucose 96 70 - 199 mg/dL [facility] Comment: Interpretive Data Fasting glucose >/= [...] Calcium 8.9 8.5 - 10.3 mg/dL [facility] Phosphorus, pl 2.7 2.3 - 4.5 mg/dL [facility] Albumin 4.0 3.5 - 5.0 g/dL [facility] Blood 09/11/2024 3:11 PM STUDENT COUNSELLOR 09/11/2024 3:27 PM STUDENT COUNSELLOR us Merlin Horton MD LAB BLOOD ORDERABLES F inal Result Performing Organization Address City/[facility]/ZIP Co de Phone Number [facility] Department [place] [address] * [employer] Results (08/07/2024 8:53 AM STUDENT COUNSELLOR) Provider Scanning AUDIOLOGY SERVICES ORDERABLES Final Result * REFLEXIVE URINE CULTURE (07/13/2024 10:36 AM STUDENT COUNSELLOR) [facility]rine [facility] Comment:NO CULTURE INDICATED 07/13/2024 10:3 6 AM STUDENT COUNSELLOR 07/13/2024 10:36 AM STUDENT COUNSELLOR Narrative [facility] - 07/15/2024 4:10 PM STUDENT COUNSELLOR FASTING:NO FASTING: NO Tawanna Shafer MD LAB MICROBIOLOGY - GENERAL O RDERABLES Final Result [facility] [address] [place] [address] * (ABNORMAL) Urinalysis reflex to microscopic and culture Urine, clean voided (07/13/2024 10:36 AM STUDENT COUNSELLOR) Color, ur YELLOW YELLOW [facility] [...] reported. Urine, clean voided 07/13/2024 10:36 AM STUDENT COUNSELLOR 07/13/2024 10:36 AM STUDENT COUNSELLOR Narrative [facility] - 07/15/2024 4:10 PM STUDENT COUNSELLOR FASTING:NO FASTING: NO Tawanna Shafer MD LAB MICROBIOLOGY - GENERAL O RDERABLES Final Result Performing Organization Address [facility] Co de Phone Number [facility] [employer] [facility] [address] [place] [address] * Urea nitrogen, urine, random (07/13/2024 10:36 AM STUDENT COUNSELLOR) Urea nitrogen, ur 693 mg/dL [facility] Comment: No normals available for specimens other than 24 hour collections. Urine 07/13/2024 10:3 6 AM STUDENT COUNSELLOR 07/13/2024 10:36 AM STUDENT COUNSELLOR Narrative [facility] - 07/15/2024 4:10 PM STUDENT COUNSELLOR FASTING:NO FASTING: NO Tawanna Shafer MD LAB URINE ORDERABLES Final R esult Performing Organization Address [facility] Co de Phone Number [facility] [employer] [facility] [address] [place] [address] * Creatinine, urine, random (07/13/2024 10:36 AM STUDENT COUNSELLOR) Creatinine, ur 101 20 - 320 mg/dL [facility] Urine 07/13/2024 10:3 6 AM STUDENT COUNSELLOR 07/13/2024 10:36 AM STUDENT COUNSELLOR Narrative [facility] - 07/15/2024 4:10 PM STUDENT COUNSELLOR FASTING:NO FASTING: NO Tawanna Shafer MD LAB URINE ORDERABLES Final R esult Performing Organization Address [facility] Co de Phone Number [facility] [address] [place] [address] * (ABNORMAL) Renal function panel (07/13/2024 10:36 AM STUDENT COUNSELLOR) Glucose 100 65 - 139 mg/dL [facility] Comment: Non-fasting reference interval BUN 27(H) 7 - 25 mg/dL [facility] Creatinine 1.61(H) 0.70 - 1.28 mg/dL [facility] eGFR 45(L) > OR = 60 mL/min/1.7 3m2 [facility] BUN/creat ratio 17 6 - 22 (calc) [facility] Sodium 139 135 - 146 mmol/L [facility] Potassium, pl 4.3 3.5 - 5.3 mmol/L [facility] Chloride 107 98 - 110 mmol/L [facility] CO2 22 20 - 32 mmol/L [facility] Calcium 9.2 8.6 - 10.3 mg/dL [facility] Phosphorus, sr 3.3 2.1 - 4.3 mg/dL [facility] Albumin 4.0 3.6 - 5.1 g/dL [facility] Blood 07/13/2024 10:3 6 AM STUDENT COUNSELLOR 07/13/2024 10:36 AM STUDENT COUNSELLOR Narrative [facility] - 07/15/2024 4:10 PM STUDENT COUNSELLOR FASTING:NO FASTING: NO us Tawanna Shafer MD LAB BLOOD ORDERABLES Final R esult [facility] [employer] [facility] [address] [place] [address] from Last 3 Months Insurance [employer] SENIOR SUPPLEMENT MEDICARE MEDICARE AETNA SENIOR [facility] MEDICARE AET[employer] SENIOR SUPPLEMENT Advance Directives For more information, please contact: [phone] Documents on File Type Date Recorded Patient Director Of Athletics Expl anation ADVANCE DIRECTIVE 01/13/2024 10:00 AM Jared r of Cardiovascular Technician-Medical Care Teams Well Service Derrick Worker Relationship Specialty Start Date End Date Mayur Urena DO [address] [facility] [address] [place] [address] PCP - General Internal Medicine 07/22/24
--- OUTSIDE RECORDS SUMMARY | 2024-09-29 14:20 | XMS_ITS | Clinical Summary ---
Author Organization [facility] Address [address] [place] [address] Phone Care Team Providers Care Physician Office Assistant Name Role Phone Sebastian Pitts DO Primary Care Provider [phone] Allergies Active Allergy Reactions Criticality Noted Date Comments Lisinopril Angioedema High 07/25/2011 Kmzosjjo-Bttroleubl-Cnobacixv Other (See Comments) 07/25/2011 Medications OTHER Pro biotic Active Cholecalciferol, Vitamin D3, 2,000 unit Oral Cap Take by mouth. Active INDOMETHACIN (INDOCIN ORAL) Take 75 mg by mouth every 12 hours. Active EZETIMIBE/SIMVAS TATIN (VYTORIN 10-40 ORAL) Take by mouth. 1/2 tab Active valsartan (DIOVAN) 80 mg Oral tablet Take 80 mg by mouth daily. Active diltiazem SR 24 hour (TIAZAC) 360 mg Oral capsule Take 360 mg by mouth daily. Active oxyCODONE-acetam inophen (PERCOCET) 5-325 mg Oral tablet Take 1 Tab by mouth every 4 hours as needed. Active Social History Tobacco Use Types Packs/Day Years Used Date Smoking Tobacco: Former Cigarettes Q uit: 06/25/2011 Alcohol Use Standard Drinks/Week Comments Yes 0 (1 standard drink = 0.6 oz pur e alcohol) holidays Sex and Gender Information Value Date Recorded Sex Assigned at Not on file Legal Sex Male 2:47 AM PROTOTYPE CARPENTER Gender Identity Not on file Sexual Orientation Not on file Occupation Industry Job Start Date Job End Date Not on file Not on file Not on file Not on file Last Filed Vital Signs Vital Sign Reading Time Taken Comments Blood Pressure 140/81 08/08/2011 9:25 AM PROTOTYPE CARPENTER Pulse 70 08/08/2011 9:25 AM PROTOTYPE CARPENTER Temperature 36.8 C (98.3 F) 08/08/2011 9:25 AM PROTOTYPE CARPENTER Respiratory Rate 16 08/08/2011 9:25 AM PROTOTYPE CARPENTER Oxygen Saturation 97% 08/08/2011 9:25 AM PROTOTYPE CARPENTER Inhaled Oxygen Concentration - - Weight 79.1 kg (174 lb 6.4 oz) 08/07/2011 6:21 A M PROTOTYPE CARPENTER Height 177.8 cm (5' 10 ) 07/25/2011 4:24 PM PROTOTYPE CARPENTER Body Mass Index 25.02 07/25/2011 4:24 PM PROTOTYPE CARPENTER Plan of Treatment Health Maintenance Due Date Last Done Comments DTAP/TDAP/TD VACCINES (1 - Tdap) 1969 COLORECTAL SCREENING 1995 Colorectal Cancer Screening 1995 FIT-DNA Q 3 years 1995 FIT/FOBT Q 1 year 1995 Flex Sig/CT Colonography Q 5 years 1995 PNEUMOCOCCAL VACCINE 65+ YEARS (1 of 1 - PCV) 04/21/20 00 ZOSTER VACCINE (1 of 2) 2000 INFLUENZA VACCINE (#1) 2024 RSV VACCINE (60+ or ) (1 - 1-dose 75+ series) 2025 Medical Devices Implanted Type Area Lead Mechanic Device Identifier Shelf Expiration Date Model / Serial / Lot Log [id number] - Ear Implant Tray - 1 - Pros Ear Dornhoffer Titn [id number] Implanted:Qty: 1 on 08/07/2011 at [facility] Ear Left: Ear [employer] 07/04/2021 [id number] / / [id number] Insurance [facility] [id number] Advance Directives For more information, please contact: [phone] * Full Code (Latest Code Status on File) Date Activated Date Inactivated Comments 08/07/2011 8:57 AM 08/08/2011 3:16 PM * Full Code Date Activated Date Inactivated Comments 08/07/2011 6:05 AM 08/07/2011 8:57 AM Care Teams Physician Office Assistant Relationship Specialty Start Date End Date Sebastian Pitts DO [address] [address] PCP - General Internal Medicine 07/13/11
--- OUTSIDE RECORDS SUMMARY | 2024-09-29 14:20 | XMS_ITS | Referral Summary ---
Author Organization [facility] Address [address] [facility] [place] [address] Care Team Providers Care Supervisor Denture Department Name Role Phone Sebastian Pitts Primary Care Provider Source Comments [facility],non-owned Affiliates and Associated Physician Practices is amultiple site organization consisting of ambulatory clinics and hospital sitesin [place], [place], [place] and [place]. This disclosure is being madepursuant to the Care Everywhere program and may not contain all information available regarding this patient. Last updated 18.[facility] Allergies Active Allergy Reactions Criticality Noted Date Comments Lisinopril Other 06/11/2023 Lips swell Obcnbuew-Dnxjwswbvk-Oehjmqczx Rash Medium 2022 Medications * Be aware [...] of Treatment Not on file Care Teams Supervisor Denture Department Relationship Specialty Start Date End Date Sebastian Pitts DO [address] [facility] [address] [facility] 21 [place] [address] PCP - General 08/26/12
--- OUTSIDE RECORDS SUMMARY | 2024-09-29 14:20 | XMS_ITS | Encounter Summary ---
Author Organization [facility] Address [address] [place] [address] Phone Care Team Providers Care Nuclear Reactor Engineer Name Role Phone Sebastian Pitts MD Primary Care Provider [phone] Mayur Urena DO Primary Care Provider [phone] Encounter Details Date Type Department Care Team [...] on file Legal Sex Male 3:13 AM COPY MACHINE OPERATOR Gender Identity Male 03/26/2018 8:52 AM CDT Sexual Orientation Straight 07/05/2020 1: 06 PM COPY MACHINE OPERATOR documented as of this encounter Plan of Treatment Not on file documented as of this encounter Procedures Procedure Name Priority Date/Time Associated Diagnosis Comments SCAN - RADIOLOGY/IMAGING 09/21/2022 documented in this encounter Results * SCAN - RADIOLOGY/IMAGING (09/21/2022) Anatomical Region Laterality Modality Other us Provider Scanning Final Result documented in this encounter Visit Diagnoses Not on filedocumented in this encounter Care Teams Nuclear Reactor Engineer Relationship Specialty Start Date End Date Sebastian Pitts MD [address] [place] [address] PCP - General 11/02/16 07/21/24 Mayur Urena DO [address] [place] [address] PCP - General Internal Medicine 07/22/24 documented as of this encounter
--- OUTSIDE RECORDS SUMMARY | 2024-09-29 14:20 | XMS_ITS | Encounter Summary ---
Author Organization [facility] Address [address] [place] [address] Care Team Providers Care Woodworking Bench Carpenter Name Role Phone Sebastian Pitts DO Primary Care Provider [phone] Encounter Details Date Type Department Care Team (Latest Contact Info) Description 04/02/2002 Outpatient Historical HIS PATIENT IN A BED Jeanmarie Herrera MD NO ADDRESS ON FILE OTITIS MEDIA NOS (Primary Dx) Social History Tobacco Use Types Packs/Day Years Used Date Smoking Tobacco: Never Assessed Sex and Gender Information Value Date Recorded Sex Assigned at Not on file Legal Sex Male 2:47 AM PIPE THREADING MACHINE OPERATOR Gender Identity Not on file Sexual Orientation Not on file documented as of this encounter Plan of Treatment Not on file documented as of this encounter Visit Diagnoses Diagnosis Unspecified otitis media- Primary documented in this encounter Care Teams Woodworking Bench Carpenter Relationship Specialty Start Date End Date Sebastian Pitts DO [address] [facility] [address] [place] [phone] PCP - General Internal Medicine 07/13/11 documented as of this encounter
--- OUTSIDE RECORDS SUMMARY | 2024-09-29 14:20 | XMS_ITS | Encounter Summary ---
Author Organization [facility] Address [address] [place] [address] Care Team Providers Care Machine Plug Shaper Name Role Phone Sebastian Pitts DO Primary Care Provider [phone] Encounter Details Date Type Department Care Team (Late st Contact Info) Description 03/31/2002 Outpatient Historical [facility] Support Serv. ([facility]) [address] [place] [address] Bri Santiago MD Social History Tobacco Use Types Packs/Day Years Used Date Smoking Tobacco: Never Assessed Sex and Gender Information Value Date Recorded Sex Assigned at Not on file Legal Sex Male 2:47 AM RIG OPERATOR Gender Identity Not on file Sexual Orientation Not on file documented as of this encounter Plan of Treatment Not on file documented as of this encounter Visit Diagnoses Not on filedocumented in this encounter Care Teams Machine Plug Shaper Relationship Specialty Start Date End Date Sebastian Pitts DO [address] [facility] [address] [place] [phone] PCP - General Internal Medicine 07/13/11 documented as of this encounter
--- OUTSIDE RECORDS SUMMARY | 2024-09-29 14:20 | XMS_ITS | Encounter Summary ---
Author Organization [facility] Address [address] [place] [address] Phone Care Team Providers Care Woodyard Operator Name Role Phone Sebastian Pitts MD Primary Care Provider [phone] Mayur Urena DO Primary Care Provider [phone] Encounter Details Date Type Department Care Team [...] on file Legal Sex Male 3:13 AM RUBBER WORKER Gender Identity Male 03/26/2018 8:52 AM CDT Sexual Orientation Straight 07/05/2020 1: 06 PM RUBBER WORKER documented as of this encounter Plan of [...] on filedocumented in this encounter Care Teams Woodyard Operator Relationship Specialty Start Date End Date Sebastian Pitts MD [address] [place] [address] PCP - General 11/02/16 07/21/24 Mayur Urena DO [address] [place] [address] PCP - General Internal Medicine 07/22/24 documented as of this encounter
--- OUTSIDE RECORDS SUMMARY | 2024-09-29 14:21 | XMS_ITS | Clinical Summary ---
Author Organization [facility] Address [address] [place] [address] Care Team Providers Care Lining Mechanic Name Role Phone Sebastian Pitts Primary Care Provider Source Comments [facility],non-owned Affiliates and Associated Physician Practices is amultiple site organization consisting of ambulatory clinics and hospital sitesin [place], [place], [place] and [place]. This disclosure is being madepursuant to the Care Everywhere program and may not contain all information available regarding this patient. Last updated 18.[facility] Evolva Allergies Active Allergy Reactions Criticality Noted Date Comments Lisinopril Other 06/11/2023 Lips swell Kbajiwjb-Pbjpiqiisr-Iuekfirgv Rash Medium 2022 Medications * Be aware [...] age to complete this topic Care Teams Lining Mechanic Relationship Specialty Start Date End Date Sebastian Pitts DO [address] [facility] [address] [place] [address] PCP - General 08/26/12
--- OUTSIDE RECORDS SUMMARY | 2024-09-29 14:21 | XMS_ITS | Encounter Summary ---
Author Organization [facility] Address [address] [facility] [place] [address] Care Team Providers Care Nursing Care Attendant Name Role Phone Sebastian Pitts DO Primary Care Provider [phone] Encounter Details Date Type Department Care Team (Late st Contact Info) Description 11/09/2021 Lab Requisition [facility] DermPath Lab [address] [facility] [place] [id number] [place] [address] Social History Tobacco Use Types [...] AM CDT) Case Report Dermatopathology Report Case: [id number] Authorizing Provider: Coy Keating MD Collected: 11/08/2021 12:00 AM Ordering Location: [facility] DermPath Lab Received: 11/09/2021 01:38 PM Pathologist: [...] specimen consists of a shave biopsy measuring [id number]. Jar 0. 12:59 PM CDT DERMATOPATHOLOGY LABORATORY [...] characteristic determined by the Dermatopathology Laboratory at [facility], directed by Dr. Tio Antonio. These tests need not be, and therefore are not, approved by the [place] Food and Drug Administration. The tests are used for clinical purposes. Billing Codes Specimen Charges Stain Charges 97289 1 2 12:59 PM CDT DERMATOPATHOLOGY LABORATORY Embedded Images 12:59 PM CDT DERMATOPATHOLOGY LABORATORY Pathology/Cytolog y TISSUE SPECIMEN FROM SKIN / Unknown 11/08/2021 11/09/2021 1:38 PM CDT Coy Keating MD LAB - PATHOLOGY/CYTO LOGY ORDERABLES DERMATOPATHOLOGY LABORATORY [facility] - Department of Dermatology [facility] Specialized Medicine [address] [place] [address], [address] [phone] documented in this encounter Visit Diagnoses Not on filedocumented in this encounter Care Teams Nursing Care Attendant Relationship Specialty Start Date End Date Sebastian Pitts DO [address] [facility] [address] [facility] [address] [place] [address] PCP - General 08/26/12 documented as of this encounter
--- OUTSIDE RECORDS SUMMARY | 2024-09-29 14:21 | XMS_ITS | Encounter Summary ---
Author Organization [facility] Address [address] [facility] [place] [address] Care Team Providers Care Karate Teacher Name Role Phone Sebastian Pitts DO Primary Care Provider [phone] Encounter Details Date Type Department Care Team (Late st Contact Info) Description 05/17/2023 Lab Requisition [facility] - DermPath Lab [address] [place] [id number] Coy Keating MD [address] [place] [address] Social History Tobacco Use Types [...] AM CDT) Case Report Dermatopathology Report Case: [id number] Authorizing Provider: Coy Keating MD Collected: 05/15/2023 12:00 AM Ordering Location: [facility] DermPath Lab Received: 05/17/2023 04:27 [...] characteristic determined by the Dermatopathology Laboratory at [facility], directed by Dr. Tio Antonio. These tests need not be, and therefore are not, approved by the [place] Food and Drug Administration. The tests are used for clinical purposes. Billing Codes Specimen Charges Stain Charges 49670 1 4:18 PM CDT DERMATOPATHOLOGY LABORATORY Embedded Images 4:18 PM CDT DERMATOPATHOLOGY LABORATORY Pathology/Cytolog y TISSUE SPECIMEN FROM SKIN / Unknown 05/15/2023 05/17/2023 4:27 PM CDT Coy Keating MD LAB - PATHOLOGY/CYTO LOGY ORDERABLES DERMATOPATHOLOGY LABORATORY [facility] - Department of Dermatology [address], [address] [phone] documented in this encounter Visit Diagnoses Not on filedocumented in this encounter Care Teams Karate Teacher Relationship Specialty Start Date End Date Sebastian Pitts DO [address] [facility] [address] [place] [address] PCP - General 08/26/12 documented as of this encounter
--- OUTSIDE RECORDS SUMMARY | 2024-09-29 14:21 | XMS_ITS | Clinical Summary ---
Author Organization [facility] Address [address] [place] [address] Care Team Providers Care Sole Filler Name Role Phone Unavailable Primary Care Provider [...]
--- OUTSIDE RECORDS SUMMARY | 2024-09-29 14:21 | XMS_ITS | Patient Health Summary ---
Author Organization [facility] Address [address] [facility] [place] [address] Care Team Providers Care Button Riveter Name Role Phone Sebastian Pitts Primary Care Provider Note from [facility],non-owned Affiliates and Associated Physician Practices is amultiple site organization consisting of ambulatory clinics and hospital sitesin [place], [place], [place] and [place]. This disclosure is being madepursuant to the Care Everywhere program and may not contain all information available regarding this patient. 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 * DERMATOPATHOLOGY(Performed 05/15/2023) * DERMATOPATHOLOGY(Performed 11/08/2021) * DERMATOPATHOLOGY(Performed 11/15/2020) * DERMATOPATHOLOGY(Performed 03/15/2020) * DERMATOPATHOLOGY(Performed 02/04/2019) * DERMATOPATHOLOGY(Performed 08/14/2017) * DERMATOPATHOLOGY(Performed 02/28/2017) * DERMATOPATHOLOGY(Performed 06/08/2014) * DERMATOPATHOLOGY(Performed 08/30/2010) Results * (ABNORMAL) CULTURE AEROBIC (06/21/2023 8:04 AM ENCAPSULATOR) Culture (A) [facility] Comment: CULTURE, AEROBIC BACTERIA Micro Number: [id number] Test Status: Final Specimen Source: Skin Specimen [...] mcg/mL requires additional testing.) Test Performed at: [facility] [address] SHELBY DSOUZA MD Microbiology TISSUE SPECIMEN FROM SKIN / Unknown 06/21/2023 8:04 AM ENCAPSULATOR 06/22/2023 3:24 AM ENCAPSULATOR Vance Gomez MD LAB - MICROBIOLOGY O RDERABLES [address] [address] * [facility] MG TQ H/N/H/F/G EA ADDL STAG, [facility] MG TQ H/N/H/F/G 1ST STAG 5 BLOC (06/11/2023 11:14 AM ENCAPSULATOR) Narrative Vance Gomez MD - 06/11/2023 11:14 AM ENCAPSULATOR Vance Gomez MD 06/11/2023 11:34 AM Mohs Micrographic Surgery Operative Note Procedure: Mohs micrographic surgery Date of service: 06/11/2023 Location: right lower lg lip 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 All components of [place] Protocol/PAUSE Rule completed. STAGE I: The patient [...] sections examined. No additional histologic findings appreciated. [facility] CLIA # [id number] Mohs Legal Transcriber: Susan Morataya MD REPAIR: Secondary Intention The patient is status-post Mohs micrographic surgery. The surgical site was examined with attention to normal anatomic and functional relationships. After consideration and discussion of multiple options with the patient, it was determined that healing by secondary intention would offer the best chance for preservation/hoahaoism of all normal anatomic and functional relationships. [...] report. I entered the information in our [employer] DocFlowsheet with the information provided by Dr. Gomez on his handwritten, paper format, surgical worksheet, which was then used to initiate the create of this note. Dr. Gomez then reviewed and edited the note as needed to complete the note. Valeri Regalado LPN I have reviewed the note, edited it as necessary and performed the entire procedure. Vance Gomez MD Department Administrator 06/11/2023 Vance Gomez MD PROCEDURE/MINOR SURG ICAL ORDERABLES * DERMATOPATHOLOGY (05/15/2023 12:00 AM CDT) Only the most recent of9 resultswithin the time period is included. Case Report Dermatopathology Report Case: [id number] Authorizing Provider: Coy Keating MD Collected: 05/15/2023 12:00 AM Ordering Location: [facility] DermPath Lab Received: 05/17/2023 04:27 PM [...] characteristic determined by the Dermatopathology Laboratory at [facility], directed by Dr. Tio Antonio. These tests need not be, and therefore are not, approved by the [place] Food and Drug Administration. The tests are used for clinical purposes. Billing Codes Specimen Charges Stain Charges 69705 1 3 4:18 PM CDT DERMATOPATHOLOGY LABORATORY Embedded Images 3 4:18 PM CDT DERMATOPATHOLOGY LABORATORY Pathology/Cytolog y TISSUE SPECIMEN FROM SKIN / Unknown 05/15/2023 05/17/2023 4:27 PM CDT Coy Keating MD LAB - PATHOLOGY/CYTO LOGY ORDERABLES DERMATOPATHOLOGY LABORATORY [facility] - Department of Dermatology [facility] Specialized Medicine [address] [place] [address], [address] [phone] Care Teams Button Riveter Relationship Specialty Start Date End Date Sebastian Pitts DO [address] [facility] [address] [address] PCP - General 08/26/12
--- OUTSIDE RECORDS SUMMARY | 2024-09-29 14:21 | XMS_ITS | Encounter Summary ---
Author Organization [facility] Address [address] [place] [address] Care Team Providers Care Synthetic Staple Extruder Name Role Phone Sebastian Pitts DO Primary Care Provider [phone] Encounter Details Date Type Department Care Team (Late st Contact Info) Description 02/06/2019 Lab Requisition [facility] Care DermPath Lab [address] [facility] [place] [address] [place] [address] Social History Tobacco Use Types [...] AM CDT) Case Report Dermatopathology Report Case: [id number] Authorizing Provider: Coy Keating MD Collected: 02/04/2019 [...] specimen consists of a shave removal measuring [id number]. The margin is inked green. Jar 0. [...] determined by the Dermatopathology Laboratory at [facility], directed by Dr. Tio Antonio. These tests need not be, and therefore are not, approved by the [place] Food and Drug Administration. The tests are used for clinical purposes. Billing Codes Specimen Charges Stain Charges 71746 1 11:16 AM CDT DERMATOPATHOLOGY LABORATORY Embedded Images 11:16 AM CDT DERMATOPATHOLOGY LABORATORY Pathology/Cytolog y TISSUE SPECIMEN FROM SKIN / Unknown 02/04/2019 02/06/2019 1:14 PM CDT Coy Keating MD LAB - PATHOLOGY/CYTO LOGY ORDERABLES DERMATOPATHOLOGY LABORATORY [facility] - Department of Dermatology [address] [facility], 5th Floor Lab [address] [phone] documented in this encounter Visit Diagnoses Not on filedocumented in this encounter Care Teams Synthetic Staple Extruder Relationship Specialty Start Date End Date Sebastian Pitts DO [address] [facility] [address] [place] [address] PCP - General 08/26/12 documented as of this encounter
--- OUTSIDE RECORDS SUMMARY | 2024-09-29 14:21 | XMS_ITS | Encounter Summary ---
Author Organization [facility] Address [address] [facility] [place] [address] Care Team Providers Care Potato Chip Frier Name Role Phone Sebastian Pitts DO Primary Care Provider [phone] Encounter Details Date Type Department Care Team (Late st Contact Info) Description 03/16/2020 Lab Requisition [facility] DermPath Lab [address] [facility] [place] [phone] Coy [place] [address] Social History Tobacco Use Types [...] AM CDT) Case Report Dermatopathology Report Case: [id number] Authorizing Provider: Coy Keating MD Collected: 03/15/2020 12:00 AM Ordering Location: [facility] DermPath Lab Received: 03/16/2020 02:50 PM Pathologist: [...] characteristic determined by the Dermatopathology Laboratory at [facility], directed by Dr. Tio Antonio. These tests need not be, and therefore are not, approved by the [place] Food and Drug Administration. The tests are used for clinical purposes. Billing Codes Specimen Charges Stain Charges 92363 1 0 3:29 PM CDT DERMATOPATHOLOGY LABORATORY Embedded Images 0 3:29 PM CDT DERMATOPATHOLOGY LABORATORY Pathology/Cytolog y TISSUE SPECIMEN FROM SKIN / Unknown 03/15/2020 03/16/2020 2:50 PM CDT Coy Keating MD LAB - PATHOLOGY/CYTO LOGY ORDERABLES DERMATOPATHOLOGY LABORATORY [facility] - Department of Dermatology [employer] [facility] [employer] [facility]/[address] [phone] documented in this encounter Visit Diagnoses Not on filedocumented in this encounter Care Teams Potato Chip Frier Relationship Specialty Start Date End Date Sebastian Pitts DO [address] [facility] [address] [place] [address] PCP - General 1/22/13 documented as of this encounter
--- OUTSIDE RECORDS SUMMARY | 2024-09-29 14:21 | XMS_ITS | Encounter Summary ---
Author Organization [facility] Address [address] [facility] [place] [address] Care Team Providers Care Smearer Name Role Phone Sebastian Pitts DO Primary Care Provider [phone] Encounter Details Date Type Department Care Team (Late st Contact Info) Description 11/16/2020 Lab Requisition [facility] DermPath Lab [address] [place] [address] Coy Keating MD [address] [place] [address] Social History Tobacco Use Types [...] AM CDT) Case Report Dermatopathology Report Case: [id number] Authorizing Provider: Coy Keating MD Collected: 11/15/2020 12:00 AM Ordering Location: [facility] DermPath Lab Received: 11/16/2020 01:17 PM Pathologist: Addis Herrera MD Specimen: Skin, right lateral lower lg lip 1 11:54 AM CDT DERMATOPATHOLOGY LABORATORY Amended Report Date of collection changed from 11/16/20 to 11/15/20. 11:54 AM [facility] DERMATOPATHOLOGY LABORATORY Addendum 1 Pancytokeratin immunostain [...] AM Clinical History R/O SCC. 11:54 AM [facility] DERMATOPATHOLOGY LABORATORY Gross Description Specimen A: Received is one formalin filled container labeled with the patient's name and designated right lateral lower lg lip. The specimen consists of a punch biopsy measuring [id number]. Jar 0. 11:54 AM [facility] DERMATOPATHOLOGY LABORATORY Microscopic Description Specimen A. [...] determined by the Dermatopathology Laboratory at [facility], directed by Dr. Tio Antonio. These tests need not be, and therefore are not, approved by the [place] Food and Drug Administration. The tests are used for clinical purposes. Billing Codes Specimen Charges Stain Charges 06047 1 39453 84139 29450 54973 1 1 1 1 1 11:54 AM CDT DERMATOPATHOLOGY LABORATORY Embedded Images 11:54 AM CDT DERMATOPATHOLOGY LABORATORY Pathology/Cytolog y TISSUE SPECIMEN FROM SKIN / Unknown 11/15/2020 11/16/2020 1:17 PM CDT Coy Keating MD LAB - PATHOLOGY/CYTO LOGY ORDERABLES Performing Organization Address [facility]/State/ZIP Co de Phone Number DERMATOPATHOLOGY LABORATORY [facility] - Department of Dermatology [facility] Specialized Medicine [address] [place] [address], [address] [phone] documented in this encounter Visit Diagnoses Not on filedocumented in this encounter Care Teams Smearer Relationship Specialty Start Date End Date Sebastian Pitts DO [address] [facility] [address] [facility] 21 [place] [address] PCP - General 08/26/12 documented as of this encounter
== END 2024-09-29 12:44 | disposition home or self-care (01) ==
PROVIDERS: PCP Internal Medicine; Visit Provider Internal Medicine Rheumatology
DX: M19.072 Primary osteoarthritis, left ankle and foot (principal)
CPT/HCPCS: 73723; A9577

== ENCOUNTER 2024-10-02 14:01 | Outpatient (CLI) | payer MEDICARE, SELFPAY | END 2024-10-02 14:02 | disposition home or self-care (01) | LOC: ANHIMG 14:03 | PROVIDERS: PCP Internal Medicine; Visit Provider Internal Medicine | DX: J18.9 Pneumonia, unspecified organism (principal) | CPT/HCPCS: 71046 ==